=== PATIENT | male | born 1955 | race Caucasian/White ===

== ENCOUNTER 2023-12-04 08:04 | Outpatient (OUT) | payer MEDICARE, OTHER, SELFPAY ==
--- NOTE | 2023-12-04 | XR_ITS ---
[address] [address] Patient Name: ADONAY MITCHELL MRN: [id number] date: 1955 Sex: M Assigned Patient Location: Current Patient Location: Accession/Order Number: [id number] Exam Date: 12/04/2023 08:15 Report Date: 12/05/2023 04:49 At the request of: SONIA MAYNARD Procedure: XR foot RT min 3V PROCEDURE: XR foot RT min 3V HISTORY: RIGHT FOOT PAIN COMPARISON: XR foot right 11/29/2023 FINDINGS: BONES:Mild degenerative change of the first metatarsophalangeal joint. No fracture, dislocation, bone lesion. No significant loss of plantar arch. SOFT TISSUES:No visible soft tissue swelling. EFFUSION:None visible. OTHER: Negative. XR/XR foot RT min 3V IMPRESSION: 1. No acute bone abnormality. 2. Mild degenerative changes of the first metatarsophalangeal joint favoring osteoarthritis. Electronically authenticated by: RONDA MARINO Date: 12/05/2023 04:49
== END 2023-12-04 08:05 | disposition home or self-care (01) ==
PROVIDERS: Visit Provider Podiatrist Foot & Ankle Surgery
DX: M79.671 Pain in right foot (principal)
CPT/HCPCS: 73630

== ENCOUNTER 2023-12-06 06:39 | Outpatient (OUT) | payer MEDICARE, OTHER, SELFPAY ==
--- OUTSIDE RECORDS SUMMARY | 2023-12-06 06:44 | XMS_ITS | CCD ---
Author Organization [facility] CliniSymi Care Team Providers Care Assistant Professor Of Biochemistry Name Role Phone CLAUDINE DELGADILLO Attending Unavailable LEONA, CLAUDINE Consulting Unavailable LEONA, CLAUDINE Admitting Unavailable [facility], Outreach Attending Provider [phone] NON STAFF Primary Care Provider Unavailkavita e OSMIN, CLAUDINE S Consulting Unavailable REFERRAL, SELF Attending Unavailable OSMIN, CLAUDINE S Consulting Unavailable OSMIN, CLAUDINE S Admitting Unavailable OSMIN, CLAUDINE S Attending Unavailable Jonathan, Bandar Attending Unavailable Martinez, Terrell Mead Admitting Unavailable Martinez, Terrell Mead Attending Unavailable Martinez, Terrell Mead Referring Unavailable Martinez, Terrell Mead Admitting Unavailable Martinez, Terrell Mead Attending Unavailable Martinez, Terrell Mead Referring Unavailable Martinez, Terrell T Referring Unavailable Martinez, Terrell T Admitting Unavailable Martinez, Terrell Mead Attending Unavailable NILO Martínez-C Yoli Sanchez Attending Provider [phone] Yoli Martínez Attending Unavailable Tanya, Yoli Sanchez Admitting Unavailable NINI, MARIO Witt Primary Care Unavailable NINI, MARIO Witt Referring Unavailable Allergies Allergy Classification Reported Allergen(s) Allergy Type Date of Onset Reaction(s) Facility (1 source) Codeine; Translations: [codeine] Drug Allergy [facility] [place] [facility] Repository Problems Active Problems Problem Classification Problem Date Documented Da te Episodic/Chronic Headache; including migraine (1 source) Headache; including migraine; Translations: [HEADACHE UNSPECIFIED] Onset: 04-17-2021 Other connective tissue disease (1 source) Pain in right foot; Translations: [Pain in right foot] Onset: 11-29-2023 Episodic Other upper respiratory infections (1 source) Acute pharyngitis, unspecified; Translations: [ACUTE PHARYNGITIS UNSPECIFIED] Onset: 04-17-2021 Episodic Unclassified (3 sources) CONTACT W/AND (SUSP) EXPOS COVID-19; Translations: [CONTACT W/AND (SUSP) EXPOS COVID-19] Onset: 04-17-2021 Unclassified (1 source) COUGH, UNSPECIFIED; Translations: [COUGH, UNSPECIFIED] Onset: 04-17-2021 Unclassified (1 source) Encounter for surgical aftercare following surgery on the skin and subcutaneous tissue; Translations: [Encounter for surgical aftercare following surgery on the skin and subcutaneous tissue] Onset: 03-23-2023 Past or Other Problems Problem Classification Problem Date Documented Da te Episodic/Chronic Unclassified (1 source) CONTACT W/AND (SUSP) EXPOS COVID-19; Translations: [CONTACT W/AND (SUSP) EXPOS COVID-19] Onset: 04-12-2021 Results Test Name Value Interpretation Reference Range Facility XR FOOT RIGHT (MIN 3 VIEWS)o n 11-29-2023 XR FOOT RIGHT (MIN 3 VIEWS) EXAMINATION: THREE XRAY VIEWS OF THE RIGHT FOOT 11/29/2023 10:06 am COMPARISON: None. HISTORY: ORDERING SYSTEM PROVIDED HISTORY: Right foot pain TECHNOLOGIST PROVIDED HISTORY: Reason for exam:->pain What reading provider will be dictating this exam?->CRC FINDINGS: Mild hallux valgus deformity with slight articular narrowing. There is moderate narrowing in the proximal interphalangeal articulations of the 2nd and 3rd digits. There is slight flattening of the arch. Tarsometatarsal alignment is normal IMPRESSION: 1. Mild hallux valgus deformity with slight articular narrowing. 2. Moderate narrowing in the proximal interphalangeal articulations of the 2nd and 3rd digits. Interpreted by: Odessa Pires MD Signed by: Odessa Pires MD 11/29/23 Final result Normal [facility] Superficial Wound Cultureon 03-23-2023 Superficial Wound Culture Right ulnar dorsal hand ORGANISM: Staph. pseudointermedius (O:STAPSE) Quantity of Growth Moderate Growth Aerobic COLT Charge (PCMIC38) ---- SUSCEPTIBILITY --- ORGANISM: O:STAPSE ANTIBIOTIC INTERPRETATION COLT Azithromycin S <2 Ciprofloxacin S <1 Clindamycin S 0.5 Daptomycin S <0.5 Levofloxacin S <1 Linezolid S 2 Oxacillin S <0.25 Penicillin S <0.03 Tetracycline S <4 Trimethoprim/Sulfamet hoxazole S <0.5 Vancomycin S 1 S = SUSCEPTIBLE I = INTERMEDIATE R = RESISTANT BLANK = DATA NOT AVAILABLE, OR DRUG NOT ADVISABLE OR TESTED R* = RESISTANCE DUE TO EXTENDED SPECTRUM BETA-LACTAMASES ESBL = EXTENDED SPECTRUM BETA-LACTAMASE TFG = THYMIDINE-DEPENDENT STRAIN KAYLEN = BETA-LACTAMASE POSITIVE IB = INDUCIBLE BETA-LACTAMASE. APPEARS IN PLACE OF 'S' WITH SPECIES KNOWN TO POSSESS INDUCIBLE BETA-LACTAMASES. POTENTIALLY THEY MAY BECOME RESISTANT TO ALL B-LACTAM DRUGS. PERFORMED BY: [place] [address] PATHOLOGIST STEM FRAZER NOELLE PLASCENCIA M.D. Normal [facility] Comment on above: Performed By: #### C USUP #### [address] ED Note-Physicianon 01-02-20 ED Note-Physician Basic Information Time Seen: Michel Jimenez PA-C 12/09/2022 10:25 Chief Complaint pt reports right pointer and middle finger injury yesterday. had a piece of wood dropped on it. pain and swelling in fingers. History of Present Illness 67-year-old male reports emergency department with a chief complaint of right pointer and middle finger pain. Reports that he had a piece of wood dropped on it. Reports he has a lot of swelling. Reports that he is right-handed. Denies any blood thinner use. States he thinks he broke his finger. Denies any allergies except to codeine. Denies any cuts or lacerations. Review of Systems A 10 point review of systems is negative except as noted above. Medical and Surgical History: Reviewed and noted Social history: Lives at home Family History: Reviewed. Tobacco: Denies Physical Exam Vitals & Measurements T: 36.9 ?C(Oral) HR: 64(Peripheral) RR: 18 BP: 151/78 SpO2: 100% HT: 182 cm WT: 77 kg BMI: 23.25 General: The patient appears well and in no apparent distress. Patient is resting comfortably in chair. Afebrile Skin: Warm, dry, no pallor noted. Mild erythema located over the second digit MCP joint . No abrasions or lacerations noted. Head: Normocephalic, atraumatic Neck: No JVD Eye: PERRLA, EOMI ENT: Moist mucus membranes Cardiovascular: Regular rate normal peripheral perfusion. Radial pulse +2 bilaterally. Cap refill is brisk. Respiratory: No respiratory distress no accessory muscle use no obvious audible wheezing Chest Wall: no deformity Musculoskeletal: Limited range of motion of the right index finger due to pain. Tenderness proximal to the PIP joint all the way to the MCP joint of the second digit. Mild tenderness of the third digit of the right hand as well. There is no flexion or extension, as the patient is holding the finger in a flexed like position. GI: No obvious distention Neurological: A&O moves all extremities equal strength and symmetry Psychiatric: Cooperative and appropriate Medical Decision Making Medical DECISION MAKING Number and Complexity of Problems Differential Diagnosis: [] [facility] Data External documents reviewed: [] My EKG interpretation: [] My CT interpretation: [] My X-ray interpretation: reviewed My Ultrasound interpretation: [] Decision rules/scores evaluated: [] Discussed with: [] Treatment and Disposition ED Course: 67-year-old male reports to the emergency department with a chief complaint of a piece of wood onto his right hand. Reports he having pain of his right hand. States cannot really bend this. On physical exam, he has loss of range of motion of the right index finger, which could be a tendon defect. There is no laceration noted. There is some swelling noted, otherwise benign exam. Hand is neurovascularly intact. Due to his concerns, we did do an x-ray. X-ray showed no acute displaced fracture or complication. I did discuss this with the patient. Due to the possible tendon defect, I did place the patient in a finger splint. This is fully extended, and he will follow-up with orthopedics for further evaluation. Patient was grateful. Discussed return precautions. Follow-up with your primary care provider in 3 to 5 days. If symptoms worsen, do not improve, or new symptoms arise please report back to emergency department for further evaluation. The patient was understanding and agreeable to plan moving forward. Shared decision making: [] Code status: [] Assessment/Plan Injury of right index finger (S69.91XA: Unspecified injury of right wrist, hand and finger(s), initial encounter) Injury of tendon of intrinsic muscle of finger (S66.509A: Unspecified injury of intrinsic muscle, fascia and tendon of unspecified finger at wrist and hand level, initial encounter) Orders: Finger Splint Application XR Finger(s) Min 2 Views Right Disposition Plan Patient Discharge Condition Stable Discharge Disposition to home Discharge Prescription List Prescriptions No active prescription medications Follow-up With When Contact Information Sammy Jones In 3 days 12/12/2022 EDT [address] [place] [address]- Business (1) Additional Instructions: Follow-up with Dr. jones for further evaluation of your right index finger pain. CLAUDINE FUENTESMER In 3 days [address] [facility] [place] [phone] Business (1) Additional Instructions: Patient Education Crush Injury of the Hand, Ylbs-cn-Zoxw Contusion, Alyv-vq-Nnlg Attestation Patient seen and evaluated by the physician medical office assistant. Attending physician was present in the emergency department and supervised care. This visit was performed by both the physician and an APC. I performed all aspects of the MDM as documented. This report was transcribed using voice recognition software. Every effort was made to ensure accuracy, however, inadvertently computerized pile fabric knitter mistakes may be present. Appropriate healthcare PPE w (more content not included)... Normal [facility] Comment on above: Result Comment: Elec tronically Signed By: Michel Jimenez PA-C\.br\Date and Time Signed: 12/09/22 15:01 EDT\.br\Electronically Co-Signed By: Bandar Castillo MD\.br\Date and Time Co-Signed: 01/01/23 02:17 EDT Consent for Treatmenton Consent for Treatment [id number] .00CD:127 Normal [facility] [place] [facility] Discharge Instructionson Discharge Instructions [id number] .00CD:127 [facility] ED Clinical Summaryon 2022 ED Clinical Summary [facility] [address] [place], [place] [address] ED Clinical Summary Person Information Name: ADONAY MITCHELL [facility] Age: 67 Years : 1955 Sex: Male Language: Mexican PCP: CLAUDINE SOLORIO CNP Marital Status: Phone: [phone] Visit Id: Visit Reason: Finger pain-swelling; Finger injury - Minor; RIGHT HAND PAIN & SWELLING Speciality: Acuity: 4 Enc Type: Emergency Med Service: Emergency Arrival: 12/09/2022 10:21:17 Discharge: 12/09/2022 11:57:46 LOS: 000 01:36 Checkin: 12/09/2022 10:21:17 Checkout: 12/09/2022 11:57:46 Dispo Type: Home (Routine DC) EVENTS: Event Name Event Status Request Date/Time Start Date/Time Complete Date/Time Arrive Complete 12/09/2022 10:21:17 12/09/2022 10:21:17 12/09/2022 10:21:17 Document Home Meds Request 12/09/2022 10:21:17 Triage Complete 12/09/2022 10:21:17 12/09/2022 10:26:13 12/09/2022 10:26:13 Bed Assign Complete 12/09/2022 10:22:43 12/09/2022 10:22:43 12/09/2022 10:22:43 Dr Exam Complete 12/09/2022 10:22:43 12/09/2022 10:25:36 12/09/2022 10:25:36 RN Exam Complete 12/09/2022 10:22:43 12/09/2022 11:13:37 12/09/2022 11:13:37 Registration Complete 12/09/2022 10:25:36 12/09/2022 10:30:04 12/09/2022 10:30:04 Reg Complete Request 12/09/2022 10:30:04 X-Ray Complete 12/09/2022 10:40:20 12/09/2022 10:54:57 12/09/2022 11:11:30 Wet Read Request 12/09/2022 11:11:30 Patient Care Request 12/09/2022 11:31:39 Discharge Complete 12/09/2022 11:46:46 12/09/2022 11:57:51 12/09/2022 11:57:51 Transfer Complete 12/09/2022 11:57:51 12/09/2022 11:57:51 12/09/2022 11:57:51 ADDRESS: [place] [phone] PHYS DOC NOTES: MEDICAL INFORMATION: Prescriptions Given: Medications to Continue with No Changes Other Medications acetaminophen-hydroco done ([place] 325 mg-5 mg oral tablet) 1-2 tab(s) Oral q4hr PRN Pain. Duration 7 days.; as needed for pain. Refills: 0. PATIENT EDUCATION INFORMATION: Instructions: Crush Injury of the Hand, Porl-ju-Mcoe; Contusion, Fcxn-qf-Ndqn Follow up: With: Address: When: Sammy Jones [address] [place] [phone] Business (1) In 3 days 12/12/2022 Comments: Follow-up with Dr. jones for further evaluation of your right index finger pain. With: Address: When: CLAUDINE SOLORIO [address] [facility] [place] [phone] Business (1) In 3 days DIAGNOSIS: Injury of right index finger; Injury of tendon of intrinsic muscle of finger Normal [facility] [place] [facility] ED Patient Education Noteon 12-09-2022 ED Patient Education Note Orthopedics Crush Injury of the Hand A crush injury of the hand happens when a great amount of force is suddenly applied to your hand. This injury can damage your skin and many parts (structures) in the hand and wrist. Treatment will depend on which parts are damaged and how bad your injury is. What are the causes? This type of injury might happen: ? During a car accident. ? If a heavy load falls onto the hand. ? If the hand is pulled into a machine during industrial or agricultural work. What are the signs or symptoms? Symptoms will vary depending on which parts of your hand have been injured. Symptoms may include: ? Pain in the hand, wrist, or arm. In some cases, the pain can be very bad. ? Bleeding at the site of injury. ? Tingling, numbness, or loss of feeling (sensation) in part or all of your hand. ? Loss of movement in part or all of your hand. How is this treated? Treatment for this condition depends on how bad your crush injury is. Treatment may include: ? A thorough cleaning if you have an open wound. This may or may not require surgery. ? Having a splint put on your fingers, hand, or forearm. ? Medicine to relieve pain. ? Antibiotic medicine to prevent infection. ? Stitches (sutures) to close open wounds. ? One or more surgeries to treat injuries to skin, bones, joints, tendons, ligaments, muscles, nerves, or blood vessels. Follow these instructions at home: If you have a splint: ? Wear the splint as told by your doctor. Remove it only as told by your doctor. ? Do not put pressure on any part of the splint until it is fully hardened. This may take many hours. ? Loosen the splint if your fingers tingle, get numb, or turn cold and blue. ? Keep the splint clean. ? If the splint is not waterproof: ? Do not let it get wet. ? Cover it with a watertight covering when you take a bath or shower. Wound care ? If you have any skin wounds that were covered with bandages (dressings), follow instructions from your doctor about how to take care of your wounds. Make sure you: ? Wash your hands with soap and water before and after you change your bandage. If you cannot use soap and water, use hand white kid buffer. ? Change your bandage as told by your doctor. ? Leave stitches, skin glue, or skin tape (adhesive) strips in place. They may need to stay in place for 2 weeks or longer. If tape strips get loose and curl up, you may trim the loose edges. Do not remove tape strips completely unless your doctor says it is okay. ? If you have skin wounds, check them every day for signs of infection. Check for: ? More redness, swelling, or pain. ? More fluid or blood. ? Warmth. ? Pus or a bad smell. Managing pain, stiffness, and swelling ? If told, put ice on the injured area. ? Put ice in a plastic bag. ? Place a towel between your skin and the bag. ? Leave the ice on for 20 minutes, 2?3 times a day. ? Raise (elevate) the injured area above the level of your heart while you are sitting or lying down. Driving ? Ask your doctor: ? If the medicine prescribed to you requires you to avoid driving or using heavy machinery. ? When it is safe to drive if you have a splint on your hand or arm. Activity ? Return to your normal activities as told by your doctor. Ask your doctor what activities are safe for you. ? Work with a physical therapist (PT) or occupational therapist (OT) as told by your doctor. General instructions ? Take zefo-pth-thbzimm and prescription medicines only as told by your doctor. ? If you were prescribed an antibiotic, take it as told by your doctor. Do not stop taking the antibiotic even if you start to feel better. ? Do not use any products that contain nicotine or tobacco. These products include cigarettes, e-cigarettes, and chewing tobacco. If you need help quitting, ask your doctor. ? Keep all follow-up visits as told by your doctor. This is important. These include PT and OT visits. Contact a doctor if: ? A wound with stitches opens up. ? You have more redness, swelling, or pain in your hand. ? You have more fluid or blood coming from your hand. ? Your hand feels warm to the touch. ? You have pus or a bad smell coming from your hand. ? You have a fever. Get help right away if: ? You suddenly have very bad pain in your hand. ? You had feeling in your hand before but you suddenly lose feeling. ? Your wrist or hand becomes bent (contracted)without you trying to bend it. ? Your symptoms had gotten better and they suddenly get worse. ? Your hand or fingers are turning pink or blue. Summary ? A crush injury of the hand can damage your skin and many parts (structures) in the hand and wrist. ? Symptoms will vary depending on which parts of your hand have been injured. ? Treatment for this condition depends on how bad your crush injury is. This information is not intended to replace advice given t (more content not included)... Normal [facility] [place] [facility] ED Patient Summaryon 023 ED Patient Summary [place] [id number] Patient Discharge Instructions Person Information Name: ADONAY MITCHELL Age: 67 Years Arrival Date: 12/09/2022 10:21:17 Discharge Diagnosis: Injury of right index finger; Injury of tendon of intrinsic muscle of finger Primary Care Physician: CLAUDINE SOLORIO CNP Provider Information Primary Provider: Advanced Multiple Knife Edge Trimmer Operator:None The exam and treatment you received in the Emergency Department were for an urgent problem and are not intended as complete care. It is important that you follow up with a doctor, nurse practitioner, or physician?s medical office assistant for ongoing care. If your symptoms become worse or you do not improve as expected and you are unable to reach your usual health care provider, you should return to the Emergency Department. We are available 24 hours a day. ADONAY MITCHELL has been given the following list of patient education materials, prescriptions and follow-up instructions: Follow-up Instructions: With: Address: When: Sammy Jones [address] [place], [place] [phone] Business (1) In 3 days 12/12/2022 Comments: Follow-up with Dr. jones for further evaluation of your right index finger pain. With: Address: When: CLAUDINE SOLORIO [address] [place] [phone] Business (1) In 3 days In the event that this physician does not participate in your insurance network, please consult with your insurance company to find a nearby participating provider. Patient Education Materials: Crush Injury of the Hand, Kvmw-jt-Cqgv; Contusion, Khck-yi-Bgte A MESSAGE TO ALL PATIENTS REGARDING OPIOIDS PRESCRIPTION OPIOIDS: WHAT YOU NEED TO KNOW Prescription opioids can be used to help relieve mqxnkgsj-hh-ijgtbc pain and are often prescribed following a surgery or injury, or for certain health conditions. These medications can be an important part of the treatment but also come with serious risks. It is important to work with your healthcare provider to make sure you are getting the safest, most effective care. WHAT ARE THE RISKS AND SIDE EFFECTS OF OPIOID USE? Prescription opioids carry serious risks of addiction and overdose, especially with prolonged use. An opioid overdose, often marked by slowed breathing, can cause sudden . The use of prescription opioids can have a number of side effects as well, even when taken as directed: ? Tolerance?meaning you might need to take more of the medication for the same pain relief ? Physical dependence?meaning you have symptoms of withdrawal when a medication is stopped ? Increased sensitivity to pain ? Constipation ? Nausea, vomiting, and dry mouth ? Sleepiness and dizziness ? Confusion ? Depression ? Low levels of testosterone that can result in lower sex drive, energy, and strength ? Itching and sweating RISKS ARE GREATER WITH: ? History of drug misuse, substance use disorder, or overdose ? Mental health conditions (such as depression or anxiety) ? Sleep apnea ? Older age (65 years and older) ? Avoid alcohol while taking prescription opioids. Also, unless specifically advised by your health care provider, medications to avoid include: ? Benzodiazepines (such as Xanax or Valium) ? Muscle relaxants (such as Soma or Flexeril) ? Hypnotics (such as Ambien or Lunesta) ? Other prescription opioids KNOW YOUR OPTIONS Talk to your health care provider about ways to manage your pain that don?t involve prescription opioids. Some of these options may actually work better and have fewer risks and side effects. Options may include: ? Pain relievers such as acetaminophen, ibuprofen, and naproxen ? Some medication that are also used for depression or seizures ? Physical therapy and exercise ? Cognitive behavioral therapy, a psychological, goal-directed approach, in which patients learn how to modify physical, behavioral, and emotional triggers of pain and stress. IF YOU ARE PRESCRIBED OPIOIDS FOR PAIN: ? Never take opioids in greater amounts or more often than prescribed. ? Follow up with your primary health care provider. o Work together to create a plan on how to manage your pain. o Talk about ways to help manage your pain that don?t involve prescription opioids. o Talk about any and all concerns and side effects. ? Help prevent misuse and abuse o Never sell or share prescription opioids. o Never use another person?s prescription opioids. ? Store prescription opioids in a secure place and out of reach of others (this may include visitors, children, friends, and family). ? Safely dispose of unused prescription opioids: Find your community drug take-back program or your pharmacy mail-back program, or flush them down the toilet, following guidance from the Food and Drug Administration (www.fda.gov/Drugs/Re sourcesForYou). ? Visit www.eCareer (more content not included)... Normal [facility] [place] [facility] XR Finger(s) Min 2 Views [facility] [place] 12-09-2022 XR Finger(s) Min 2 Views Right Exam Date/Time: 12/09/2022 11:11 EDT Reason for Exam: Pain, Traumatic Report IMPRESSION: NO DISPLACED FRACTURE OR SIGNIFICANT POSTTRAUMATIC COMPLICATION IDENTIFIED. EXAM: XR Finger(s) Min 2 Views Right DATE: 12/09/2022 CLINICAL HISTORY: Pain, Traumatic. COMPARISON: None available. TECHNIQUE: PA, lateral, and oblique radiographs of the right second and third digits were obtained. FINDINGS: There is no fracture, dislocation, worrisome bone destruction, radiodense foreign bodies, or other posttraumatic complication identified. Mild osteoarthritic changes are present. Ordering Provider: Michel Jimenez FINAL REPORT Dictated: 12/09/2022 11:21 am Bhaskar Lemos MD Signed (Electronic Signature): 12/09/2022 11:21 am Signed by: Bhaskar Lemos MD Transcribed by: RAMÓN Technologist: JIMBO Technical Comments Radiation Dose: Ka,r in mGy = na DAP = na [facility] Postoperative Documentson Postoperative Documents [id number] .00CD:127 [facility] [place] [facility] IntraOperative Documentson 0 07-14-2022 IntraOperative Documents [id number]# 1.00CD:127 [facility] Coding Summary.on 07-13-2022 Coding Summary. CD:[id number] W w+PGhlYWQ+MX7BSUNjM53 zuOVkyN6qL0XVYNuPQyup HTJKJReWCgHtqzDzIH1mv XNjZXJu IC8+BL4jITFmMicdkSIns 7F8eNW0S38zfx3iGXfnpH N7VKIhArVpvabrr6svcKg 6IDcuNmluOyBt HIQioZ72PUA1nT52Gx22e UWtxITrd2ulxTo2GyMcVD InQNQ2mHvjLKabf6AmZPQ hC54hnRIvf3C3 RTTxwHirkUWbUzMztPF7a S7cTXwjuuxqe7usbpklMw l2vl63jARoq4A0oCY8U6G tbfR9QDHbyECu RarxoHTOwA7fflinz4hka senQdSzTDLeISd9YFs3NX OoiJudHiYkKS32YGT3GCR suxIgY0RgEZCh cOwdDuZ2e2E8Tc0KG5CCU psiQ7ENYNIFOQrdgBJ+PC 69hm75A0IhGzgrYme6ZBE eCXV1qBW4hV1y BWEeYHzew1B7yHU4R0Azu nPkqr8do9uzQLGeYKtjT4 1gaCHox9C9PIBymOU4MIM beGtwCxLvpR05 Oyc+XRHyeQyev1AaWtbrd 4zyb2zfmPj5IdwuEHKuri DptGclJGT9f8XaHo7nXIF bxQC9gXA2zH4b YeLyMdQ1JTkcI686QrQqp MSeOykyA72oF8MnzGK+PH MrKqg3ATEgyVayDW8dT9B hZGRpbmctbGVm cKwcUN4rXCBttcliDIXwg J0kHZAaH9p3PvWaDaM3UB woH4UsJXInoiadIi24xB9 hLkRqDaT8DKim Q2PklsE2DDKqxZTbPJfkM ZK1A97yi4S7PLSsBHOtVJ A8zYH0cR0hkZoxauncjXZ mdDsgdmVydGlj QLgqNRxyZ504JLMugPwzL kNvZGluZyBEYXRlOiAgMD QvMDYvMjAyMzwvdGQ+PHR jMRZ4jYidUXQd jBLoBNwzJq0ieGbztDmxD Z3bPYBehgklMEDjeR5xAL CxaRFrrWjkFW0yDKNpidi so936OqTmTTD6 OTJclKYuQ8QarO1lRiEfV JLoKSYrB6HkeJMjDFsfD9 90GRnaMnD9GURtoxIjZ2R sLWFsaWduOiB0 m1L9Ty2Od3CpctcpC8Dzf BCvUmFyLuneBYc1T1CnXl wvdHI+SF19QHIcEY14WQf 9PNC0lWdeACuv NLBhT1WfmP6xHqCoVUUsA GRkOyc+PHRhYmxlIHdpZH RoPScxMDAlJyBzdHlsZT0 zDn9nNCEpOXRl mGhhbAExRpKlg5lrXXCvA KasFO8aiJqaX8DxbYH9JM Gzn2h6Hz56Y20kD8PmvVM +UYVkcPF1xRR7 sT1oDxZtHxK6HAhfF392J mCxyDAdWsmne9ber8vyfB j0KeU1TUQazzClmAnlODT 5f5EnMx36K35h IHdpZHRoPSIxNSUiIHZhb Eazer7yhZ7gRa4+PGNvbC E3tBQ3yV6wTdQiJcY9ZUn hN077DwZdbAKe Uskyo3pfa3mfvEc5SgTcQ DJmopDuoFdhYYC2o1TkJn 35Q0TkcOlro3QeVmf0in6 3zUDnn9A5eQH7 O8OvGAZejgmtkETjqMflE X6vZGJjanfhEFCsaA6wMY BeN3c9CdZnKwW1WFpkW6R wuyA0FUVxfZCb MNGmcFMWeG2rheech2wov qtaGxDrATXcELp2QRo2YF EzaVilKqDoZNI9ChG0BSA 9bAVexE6pkJvz eqbpqN4jShn+RVC1uXOzx DLAIL2rGktxcRU+PHRkIH D3dAfoSUmzFUDkdI1wLVE fB9t6EsHtToQ9 DQxmR3OgwrR7UBYsqFUlP LQebCPUnN6uwdyln1bfaq ctHkMsWVFqJEx6UQc8TLN saWduOiBsZWZ0 PmG9ACB2wFMpzG3urPfvh tmaaX0qJyf+QmlydGggRG J4EMk6U8UgMqn8CGOzeLx fTO8lmELoMTyo Jt7vtAnjvHdyEN1bOECrn wchw321TcUrn9tkCWMqnC LpIIvyBRW2Y99au9N6UPD jSGYgHHV7gPW8 tB6uhZeryjhtgBOouOljz cHmmEupYXxgHUyyD657ZE VejPfmQtTwZPg2X2IsCng 7XRGbuVhxDS2o jDUpFTzaTi6vqTznkLbyG O2uYLGzrpnwr416HvFsi4 qoBOBgqMTbUPkpTQG9Y71 mt5Y9SQBsBGDw FTJ2iHF7gR1lvGjrwthkb GVmdDsgdmVydGljYWwtYW ubG909SNEwkClxDtUunGb 9P1TdEzd2SFIx eXfdIJ5nqWBpXJutRc4bg NfesFyvNF7uCVFffjwqo2 78XsAev0jaZHZmbNFpAWr wDQU3K19ec7Z1 DTOiCSOxPBZ6sYP2bN4fl GlnbjogbGVmdDsgdmVydG gwLSgrTSicW976RDTpaKj nPlBhdGllbnQg DEnlXFp6L6DfSznvfUT+P D84HEWgQF42oPDegIRly3 mffMo8RbZcGMSoPLG5bFa wQNtcf0XoFNCc N65bhMLgm8T9FOCmlNckx YFjXiMoqTT9vL5vAOvzmz kew5eetsmrOuied9jthn8 9qY57B74jDKbo ZHRoPSIzMCUiIHZhbGlnb r7xcU5vAx5+ESWrkFL2cU R0zK1bJETkVmP8NXppL26 9InRvcCIvPjxj p0gfk8rufIe0LtZ5IQEkx sNrmXkmICD3m6XvRv25H3 9sIHdpZHRoPSIyMCUiIHZ zwDbqvk9kxT4q Ii8+MHDvrWO5qMA6eF7xF uFwCmS4TAzmJ547ZgFmoO CzHvkfY58gL5KnoKL+PHR oXzn4SNZmoGqn UG4sdVBvNZvzGg5mAVP5B eFnAcDtHWhfU7AdLTQsnc jbgorpkNV1MOXlHOBicI2 0Yq9wbPpcINTt gMAPxV8sjggew9gldwazL fKvJQKzWSz0CYx7UURmyH zrNsNsAIA2FlA8SMQ3aDE miB5lzGknnoxs hH1sT3TzAHCuiayhNb90l K2bWdXnRsJ4NWllXoe+Rk sQB9daAKlSDLGZKhEWVB9 8LM30aIYvj2R7 cIE0X4JgDHRrftrdslhwr ZD2MBYbJWFbuM35zMLsVB hvIn9kf6Q3o997AEOtZVJ vlL73Ye4vwPfd WCMqbLDDlH4mlagav9duw tdlJsXfRHXcYFt1ICy3LT JwlSwzZfXlJWE7OiR3DVJ 9iYAcxS7izCtz refdiB0wEnt+MTAvMDIvM Gn8KtizyQD+BPUyNJA1tN veSIpwVJWgmQ0vIUArY8s 5NrYoTpE9LFhf G5FpRDEvruxuPt18nE5mG jZwQiL9YGzwN0ZqkhD4KO QwcSTmAYmzNAS8K11uj2H 0RPTvXUPqIYU0 oOZ2eK1pgOcrgiauvLVws DsgdmVydGljYWwtYWxpZ2 13OGVtePjySiV0VDolZEK nFX44MB41cTEk k7W1oHO2V9MuWYLufkdzq rduqMA8QIAuFUZqdJ77lW VwVAlvHt7fh5U6d840FJQ vFKXofK29Fm3x cPbnYECrwDSDmM6ozycwe 6dqfotzGoTcQTUlIDp3NI e8PLTpuVijYoYsGWR6WfF 7CWS9qBPyuG4t eGblzrcfnY3mDtp+TWFsZ TwvdGQ+FMOhADM8fAilHA fbPKZmbL7dIZZyG8u5VrY dTmI3HYveZ6Sn HAMgkfviTt69gP1qKvCxG pU7VTxzV1AlfbM7HDFinQ DsTWiaCYN8B86ye0E7KSJ rQPScBBN8cFE6 aT7ylJmquljpkQNeuNuww rEdnJitMNubJZwwE476YR RvcDsnPkFtYnVsYXRvcnk wD0BrNSOGSUuk L6TrW0PzpZuudES+PC90c y43M5LpVrryJbp7YUXnGM E1sNJ1eA8eRMJuECdsc5J 5jBU4D2ThhaGk rk7cy6yrEJFwJMcsB60ja BDfh4X8LCSkvVB3DMTsnX rhTaUdkN07Apk+PGNvbGd ak6WnTvsmg4qe d7boxVd5UdXaCLVmtkBvd VrqIWB6x6AyYk35T51jOG dpZHRoPSIzMCUiIHZhbGl vjd5tlQ7rYc2+ SZJzfYS4uGI8pY9mUoIsQ tT2GJwoW021XxLizMJzRo lsq0sch8ervIf0MqRlAWC gdmFsaWduPSJ0 w7BtVd46W7DqzEqaa7GxM cy2ix15bZTwk4U1lZX0X1 BhZGRpbmctbGVmdDogMC4 yMDBpbjtwYWRk xD9pZPTcV5h7AdCfTeK7K LolB8UocbV0KGKeoLEeFZ UjyTAXwU3mgbyak7vfenk gIzAwMDAwMDt0 XVn4XQThaBtaWdTsMAC0P kK4LIE7bCYiaW0npMbpzs wssK7iZaw+APj3x4lrmDU dIF7iyBZ5SP34 BU53fZQoj0C4rCB8H8KsB UVckjqfmrdasYN9TOMwAA QliY96Ss5vmIgkGx4fSCK tOAO1KCPrgCYb O2FlpC8xBrHwQGHyANPcP 1LmoGIxEMlvD890QXzvEf H5TPYtrdEuA4XiZDVclTf jJyN2r0M5Ic7B MA08NV48RR97lTCok6V3l UD1I4SrUCBibizwuaeafK G2SPWdKIFokO40Di0qyFl aId2bEUFdYGL3 IJUcvMOhB5UvfK0pHiAeB XCrOSHwN3RfeQWtJMfvN3 34ODuqDpI5DZQlruYfB6F sLWFsaWduOiB0 e6P0Za2OHk44IJ91DI96b AMmn9X3tRH6Y7UyWNWamc xzhzprfCA9IVWeEZQhqW2 7Iv1bqPciBe4s ZNKdAWW1DJAknRMhW5Dfh C1vSlEwSTYaUIPaT9AisO CpYMamF712XBcbFzJ6RXW pbgPwO7IhNAOf sBwnRdR9n3X3Al5FUEkom wb6M4TwEvalgZX+PC90YW XcZV37qOSpqMMtf0ppqJj 0EpGcIZIbNBL8 eWxlPSdi (more content not included)... Normal [facility] Main OR Intraoperative Recor don 07-13-2022 Main OR Intraoperative Record IntraOp Document Type FT Summary Primary Physician: Terrell Martinez DO Finalized Date/Time: 07/13/22 08:47:29 Pt. Name: ADONAY MITCHELL/Sex: 1955 Male Med Rec #: [id number] Physician: Terrell Martinez DO Financial #: [id number] Pt. Type: A Room/Bed: [facility] Admit/Disch: 07/10/22 10:47:23 - 07/10/22 16:30:00 Institution: Case Times FT Entry 1 Patient Times In Room 07/10/22 13:57:00 Out Room 07/10/22 14:39:00 Procedure Times Start 07/10/22 14:20:00 Stop 07/10/22 14:30:00 Anesthesia Times Start 07/10/22 13:57:00 Stop 07/10/22 14:39:00 Last Modified By: Pierre Pelayo RN 07/10/22 14:42:16 General Comments: 07/13/22 Chart opened to review and send charges [facility]oth CSFA Case Attendance FT Entry 1 Entry 2 Entry 3 Case Attendee Dheeraj Green CRNA, DO, Michael T Cantal RN, Sheminith A Role Performed MOTOR HOTEL MANAGER Surgeon - Primary Surgical Technology Instructor - Primary Time In 07/10/22 13:57:00 07/10/22 13:57:00 07/10/22 13:57:00 Time Out 07/10/22 14:39:00 07/10/22 14:39:00 07/10/22 14:39:00 Procedure WRIST ARTHROSCOPY(Left) WRIST ARTHROSCOPY(Left) WRIST ARTHROSCOPY(Left) Comments Last Modified By: Pierre Pelayo RN, RN, Sheminith A Cantal RN, Sheminith A 07/10/22 14:41:28 07/10/22 14:41:28 07/10/22 14:41:28 Entry 4 Entry 5 Case Attendee Amy Dominique CST, Benjamin Role Performed Scrub - Primary BACON STRINGER/SA Time In 07/10/22 13:57:00 07/10/22 13:57:00 Time Out 07/10/22 14:39:00 07/10/22 14:39:00 Procedure WRIST ARTHROSCOPY(Left) WRIST ARTHROSCOPY(Left) Comments Last Modified By: Pierre Pelayo RN, RN, Sheminith A 07/10/22 14:41:28 07/10/22 14:41:28 Perioperative Protocols FT Pre-Care Text: Implements protective measures prior to operative or invasive procedure, confirms identity before the operative or invasive procedure, verifies operative procedure, surgical site, and laterality Entry 1 Procedure(s) WRIST ARTHROSCOPY(Left) Patient Identity Birthday, ID Band Verified (select at Check, Patient least 2): Participation Consents / H and P Anesthesia Consent, Operative Site Present Verified HandP, Surgery/Procedure Marking Verified Consent, Transfusion Consent Surgical Site Yes Laterality Verified Yes Verified Procedure Verified Yes Correct Patient Yes Position Verified Availability Equipment, Medication Prep Dry Yes Verified (If Applicable) PreOp Antibiotic No Time Out Dheeraj Green CRNA, Given Participants Terrell Martinez DO, Cantal RN, Trip Cabrera Jessica D, Mitul TURNER, Ramez Time Out Complete 07/10/22 14:17:00 Outcomes Met? Yes Last Modified By: Pierre Pelayo RN 07/10/22 14:50:38 Post-Care Text: The patient is free from signs and symptoms of injury caused by extraneous objects Allergy Information FT Pre-Care Text: Verifies allergies Entry 1 Allergies Reviewed? Yes Allergies Reviewed Self/Patient With Outcomes Met? Yes Last Modified By: Pierre Pelayo RN 07/10/22 14:50:44 Post-Care Text: The patient received appropriate medication(s) safely administered during the perioperative period Surgical Procedures FT Entry 1 Procedure Description Procedure WRIST ARTHROSCOPY Modifiers Left Surgeon Description LEFT WRIST ARTHROSCOPY DEBRIDEMENT TFCC TEAR CHONDROPLASTY LUNATE Primary Procedure Yes Primary Surgeon Terrell Martinez DO Start 07/10/22 14:20:00 Stop 07/10/22 14:20:00 Anesthesia Type General Surgical Service Orthopedics Wound Class 1 - Clean Last Modified By: Pierre Pelayo RN 07/10/22 14:41:53 General Case Data FT Pre-Care Text: Classifies surgical wound, implements aseptic technique, initiates traffic control Entry 1 Case Information OR OR 4 FT Case Level Level 3 Wound Class 1 - Clean Specialty Orthopedics ASA Class 2 Preop Diagnosis M67.834 LEFT WRIST TFCC Postop Same As Preop Yes TEAR Postop Diagnosis M67.834 LEFT WRIST TFCC Outcomes Met? Yes TEAR Last Modified By: Pierre Pelayo RN 07/10/22 14:42:00 Post-Care Text: The patient is free from signs and symptoms of infection Skin Assessment (Pre Procedure) FT Pre-Care Text: Implements protective measures to prevent skin/ tissue injury due to thermal or mechanical sources Evaluates for signs and symptoms of physical injury to skin and tissue Entry 1 Skin Integrity Intact, Speers, Warm, and Skin Abnormality No Dry Outcomes Met? Yes Last Modified By: Pierre Pelayo RN 07/10/22 14:51:02 Post-Care Text: The patient is free from signs and symptoms of injury caused by extraneous objects Patient Positioning FT Pre-Care Text: Identifies physical alterations that require additional precautions for procedure-specific positioning, verifies presence of prosthetics or corrective devices, positions the patient, evaluates the patient for signs and symptoms of injury as a result of positioning Entry 1 Procedure WRIST ARTHROSCOPY(Left) B (more content not included)... Normal [facility] Progress Note-Physicianon Progress Note-Physician Patient: ADONAY MITCHELL Age: 67 years Sex: Male : 1955 Associated Diagnoses: None Author: Christiano Christensen Jr, DO Preoperative Information Time patient last ate or drank:=== (npo 8 hours) Anesthesia history: Patient history: No prior anesthesia problems. Re-evaluation prior to induction: Completed, Initial evaluation reviewed. Review of Systems Respiratory: No shortness of breath. Cardiovascular: No chest pain. Hematology/Lymphatics : No bruising tendency, No bleeding tendency. Health Status Allergies: Allergic Reactions (All) Severity Not Documented Codeine- Head ache. Current medications: (Selected) Inpatient Medications Ordered HYDROmorphone 1 mg/mL injectable solution: 1 mg = 1 mL, Injection, IV Push, q2hr PRN Pain 8-10 for 5 day(s), Stop date 07/15/22 13:44:00 EDT, Routine, Start date 07/10/22 13:45:00 EDT, 07/10/22 13:45:00 EDT Lactated Ringers IV Ines 1000 mL 1,000 mL: 1,000 mL, IV, 150 mL/hr, Routine, Start date 07/10/22 10:45:00 EDT, 6.7 hour(s), Total volume (mL): 1,000, 77.1 kg, 1.97, m2 Lactated Ringers IV Ines 1000 mL 1,000 mL: 1,000 mL, IV, 150 mL/hr, Routine, Start date 07/10/22 10:45:00 EDT, 6.7 hour(s), Total volume (mL): 1,000, 77.1 kg, 1.97, m2 Lactated Ringers IV Ines 1000 mL 1,000 mL: 1,000 mL, IV, 80 mL/hr, Routine, Start date 07/10/22 13:45:00 EDT, 12.5 hour(s), Total volume (mL): 1,000, 77.1 kg, 1.97, m2 [place] 5/325 Tab: 1 tab(s), Tab, Oral, q4hr PRN Pain 4-7 for 5 day(s), Stop date 07/15/22 13:44:00 EDT, Routine, Start date 07/10/22 13:45:00 EDT Zofran 4 mg/2 mL Injection: 4 mg = 2 mL, Injection, IV Push, q4hr PRN Nausea/Vomiting, Routine, Start date 07/10/22 13:45:00 EDT, 07/10/22 13:45:00 EDT morphine 2 mg/mL Inj: 2 mg = 1 mL, Injection, IV Push, q4hr PRN Pain 8-10 for 5 day(s), Stop date 07/15/22 13:44:00 EDT, Routine, Start date 07/10/22 13:45:00 EDT, 07/10/22 13:45:00 EDT morphine 2 mg/mL Inj: 4 mg = 2 mL, Injection, IV Push, q4hr PRN Pain 8-10 for 5 day(s), Stop date 07/15/22 13:44:00 EDT, Routine, Start date 07/10/22 13:45:00 EDT, 07/10/22 13:45:00 EDT Prescriptions Prescribed [place] 325 mg-5 mg oral tablet: See Instructions, for pain, 20 tab(s), Refill(s) 0, 1-2 tab(s) Oral q4hr PRN Pain. Duration 7 days., [employer] #[facility], 182, cm, 07/03/22 6:35:00 EDT, Height/Length Dosing, 77.1, kg, 07/03/22 6:35:00 EDT, Weight Dosing Problem list: All Problems Contusion of elbow / SNOMED CT 700362434 / Confirmed rt elbow Cubital tunnel syndrome / SNOMED CT 49816527 / Confirmed rt arm, traumatic Lateral epicondylitis / SNOMED CT 850840801 / Confirmed Migraines / ICD-9-CM 346.90 / Confirmed Wellness examination / SNOMED CT 505756204 / Confirmed Histories Past Medical History: Active Lateral epicondylitis (114419814) Migraines (346.90) Family History: CA - Lung cancer Father () Hypothyroidism Mother Alzheimer's disease Father () Mother Graves disease Mother Brother A Fib Father () Brother Procedure history: colonoscopy in 2014 at 59 Years. foot surgery. Comments: 03/09/2011 19:06 DAIN - Gisselle MUKHERJEE, Janis d/t injury Arthroscopy of knee (687477882). hand surgery. 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 Comments: 08/18/2011 7:54 EDT - Ceci Salmeron RN Social History Social & Psychosocial Habits Alcohol 03/09/2011 Risk Assessment: Denies Alcohol Use Exercise 04/24/2019 Risk Assessment: Occasional exercise Substance Abuse 03/09/2011 Risk Assessment: Denies Substance Abuse Tobacco 03/09/2011 Risk Assessment: Denies Tobacco Use 01/19/2021 Tobacco Use: Never (less than 100 in l Smokeless tobacco use: Never Concerns about tobacco use in household: No . Physical Examination Vital Signs 07/10/2022 11:06 EDT Heart Rate Monitored 62 bpm Systolic Blood Pressure 122 mmHg Diastolic Blood Pressure 76 mmHg Mean Arterial Pressure, Monitered 92 mmHg 07/10/2022 11:05 EDT Heart Rate Monitored 60 bpm SpO2 100 % 07/10/2022 11:05 EDT Respiratory Rate 20 br/min 07/10/2022 11:04 EDT Temperature Oral 36.5 DegC 07/10/2022 11:03 EDT Systolic Blood Pressure 126 mmHg Diastolic Blood Pressure 81 mmHg Mean Arterial Pressure, Monitered 96 mmHg Respiratory: Lungs are clear to auscultation. Cardiovascular: Normal rate, Regular rhythm. Review / Management Results review Interpretation of Outside Results Chest x-ray results Radiology results ECG interpretation Condition Plan [employer] (ASA) physical status classification: Class II. Anesthetic Preoperative Plan Anesthesia: General. . Anesthetic plan, risks, benefits, and alternatives discussed with the patient and/or family. Risks discussed: nausea, vomiting, headache, sore throat, dental injury, serious complications. Patient verbalized understanding. Communication: face to face with (patient 5 minutes, Pt educated on the importance of smoking ce (more content not included)... [facility] Comment on above: Result Comment: Elec tronically Signed By: Christiano Christensen Jr, DO\.br\Date and Time Signed: 07/12/22 10:27 EDT Progress Note-Physician Patient: ADONAY MITCHLEL Age: 67 years Sex: Male : 1955 Associated Diagnoses: None Author: Christiano Christensen Jr, DO Postoperative Information Postoperative disposition: Postoperative disposition: To PACU. Optimetrix number: Optimetrix number [id number]. Anesthetic utilized: General. Health Status Allergies: Allergic Reactions (Selected) Severity Not Documented Codeine- Head ache. Physical Examination Vital Signs 07/10/2022 16:30 EDT Heart Rate Monitored 65 bpm SpO2 99 % 07/10/2022 16:30 EDT Respiratory Rate 16 br/min 07/10/2022 16:29 EDT Systolic Blood Pressure 125 mmHg Diastolic Blood Pressure 73 mmHg Mean Arterial Pressure, Monitered 90 mmHg 07/10/2022 15:16 EDT Heart Rate Monitored 66 bpm SpO2 99 % 07/10/2022 15:14 EDT Systolic Blood Pressure 131 mmHg Diastolic Blood Pressure 76 mmHg Mean Arterial Pressure, Monitered 94 mmHg 07/10/2022 15:05 EDT Temperature Temporal Artery 36.5 DegC Heart Rate Monitored 71 bpm Respiratory Rate Monitored 10 br/min Systolic Blood Pressure 114 mmHg Diastolic Blood Pressure 76 mmHg Mean Arterial Pressure, Cuff 89 mmHg SpO2 100 % Pain Assessment: Controlled. General: Awake, Alert, Appropriate. Respiratory: Adequate air exchange. Cardiovascular: Stable, Normal peripheral perfusion. Neurological: Normal sensory function, Normal motor function. Assessment Anesthetic outcome No anesthetic complications noted. Adequate pain relief. able to void without difficulty, able to ambulate with assist, tolerating PO intake, no N/V. Review / Management Condition: Stable. Plan Transfer/Discharge: Transfer/Discharge Discharge when meets criteria ( To home ). [facility] Comment on above: Result Comment: Elec tronically Signed By: Christiano Christensen Jr, DO\.br\Date and Time Signed: 07/12/22 10:26 EDT Consent for Anesthesiaon Consent for Anesthesia [id number]#1 .00CD:127 [facility] Discharge Instructionson Discharge Instructions [id number]#1 .00CD:127 [facility] IntraOperative Documentson 0 07-11-2022 IntraOperative Documents [id number]#1 .00CD:127 [facility] IntraOperative Documents [id number]#1 .00CD:127 [facility] Preoperative Documentson Preoperative Documents [id number]#1 .00CD:127 [facility] Consent for Treatmenton Consent for Treatment [id number]#1 .00CD:127 [facility] H&P Updateon 07-10-2022 H&P Update [id number]#1 .00CD:127 [facility] Inpatient Patient Summaryon 07-10-2022 Inpatient Patient Summary [place] [id number] [facility] Clinical Discharge Instructions PERSON INFORMATION Name: ADONAY MITCHELL PHYSICIANS Admitting Physician: Terrell Martinez DO Attending Physician: Terrell Martinez DO PCP: CLAUDINE SOLORIO CNP Discharge Diagnosis: Tear of triangular fibrocartilage complex (TFCC) of left wrist Comment: PATIENT EDUCATION INFORMATION Instructions: Post Op Patient Instructions - FT (CUSTOM); Triangular Fibrocartilage Tear Medication Leaflets: Follow up: With: Address: When: Terrell Martinez [address] [place] [address] Business (1) Comments: Keep scheduled appointment MEDICATION LIST Medications to Continue with No Changes [employer] [address], [address] [place], [place] [id number], [phone] acetaminophen-hydroco done ([place]ont 325 mg-5 mg oral tablet) 1-2 tab(s) Oral q4hr PRN Pain. Duration 7 days.; as needed for pain. Refills: 0. Comment: [facility] Main OR PACU I Recordon 04-0 Main OR PACU I Record PACU Phase I Docum ent Type FT Summary Primary Physician: Terrell Martinez DO Finalized Date/Time: 07/10/22 15:17:23 Pt. Name: ADONAY MITCHELL/Sex: 1955 Male Med Rec #: [id number] Physician: Terrell Martinez DO Financial #: [id number] Pt. Type: A Room/Bed: [facility]/ Admit/Disch: 07/10/22 10:47:23 - Institution: Case Times PACU I FT Pre-Care Text: Identifies barriers to communication and implements measures to provide psychological support Develops individualized plan of care, and ensures continuity of care Maintains patient's dignity and privacy, and maintains patient confidentiality Identifies and reports philosophical, cultural, and spiritual beliefs and values Identifies individual values and wishes concerning care Implements aseptic technique, and administers prescribed antibiotic therapy and immunizing agents as ordered Evaluates postoperative tissue perfusion Implements thermoregulation measures, and monitors body temperature Evaluates postoperative respiratory status Evaluates postoperative cardiac status Evaluates postoperative neurological status Assesses pain control, collaborated in initiating patient-controlled analgesia and implements alternative methods of pain control Verifies allergies, administers prescribed medications and solutions, evaluates response to medications Entry 1 In PACU I 07/10/22 14:40:00 Discharge from PACU 07/10/22 15:10:00 I Outcomes Met? Yes Last Modified By: Erma Ortiz RN 07/10/22 15:17:05 Post-Care Text: The patient demonstrates knowledge of the expected response to the operative or invasive procedure The patient's care is consistent with the individualized perioperative plan of care The patient's right to privacy is maintained The patient's value system, lifestyle, ethnicity, and culture are considered, respected, and incorporated into the perioperative plan of care The patient participates in decisions affecting his or her perioperative plan of care The patient is free from signs and symptoms of infection The patient has wound/tissue perfusion consistent with or improved from baseline levels established preoperatively The patient is at or returning to normothermia at the conclusion of the immediate postoperative period The patient's respiratory function is consistent with or improved from baseline levels established preoperatively The patient's cardiovascular status is consistent with or improved from baseline levels established preoperatively The patient's cardiovascular status is consistent with or improved from baseline levels established preoperatively The patient demonstrates and/or reports adequate pain control throughout the perioperative period The patient received appropriate medication(s), safely administered during the perioperative period Acuity Level PACU I FT Entry 1 Start Time 07/10/22 14:40:00 Stop Time 07/10/22 15:10:00 Acuity Level Acuity Level I Last Modified By: Erma Ortiz RN 07/10/22 15:17:22 Finalized By: Erma Ortiz RN Document Signatures Signed By: Erma Ortiz RN 07/10/22 15:17 Normal [facility] Main OR PACU II Recordon Main OR PACU II Record PACU Phase II Document Type FT Summary Primary Physician: Terrell Martinez DO Finalized Date/Time: 07/10/22 18:59:59 Pt. Name: ADONAY MITCHELL/Sex: 1955 Male Med Rec #: [id number] Physician: Terrell Martinez DO Financial #: [id number] Pt. Type: A Room/Bed: [facility]/ Admit/Disch: 07/10/22 10:47:23 - 07/10/22 16:30:00 Institution: Case Times PACU II FT Pre-Care Text: Identifies barriers to communication and implements measures to provide psychological support and determines knowledge level Develops individualized plan of care, and ensures continuity of care Maintains patient's dignity and privacy, and maintains patient confidentiality Identifies and reports philosophical, cultural, and spiritual beliefs and values Identifies individual values and wishes concerning care administers prescribed antibiotic therapy and immunizing agents as ordered, Evaluates postoperative tissue perfusion Implements thermoregulation measures, and monitors body temperature Evaluates postoperative respiratory status Evaluates postoperative cardiac status Evaluates postoperative neurological status Assesses pain control, collaborated in initiating patient-controlled analgesia and implements alternative methods of pain control Verifies allergies, administers prescribed medications and solutions, evaluates response to medications Entry 1 In PACU II 07/10/22 15:15:00 Discharge from PACU 07/10/22 16:30:00 II Outcomes Met? Yes Last Modified By: Laura Manuel RN 07/10/22 18:59:57 Post-Care Text: The patient demonstrates knowledge of the expected response to the operative or invasive procedure The patient's care is consistent with the individualized perioperative plan of care The patient's right to privacy is maintained The patient's value system, lifestyle, ethnicity, and culture are considered, respected, and incorporated into the perioperative plan of care The patient participates in decisions affecting his or her perioperative plan of care. The patient is free from signs and symptoms of infection The patient has wound/tissue perfusion consistent with or improved from baseline levels established preoperatively The patient is at or returning to normothermia at the conclusion of the immediate postoperative period The patient's respiratory function is consistent with or improved from baseline levels established preoperatively The patient's cardiovascular status is consistent with or improved from baseline levels established preoperatively The patient's neurological status is consistent with or improved from baseline levels established preoperatively The patient demonstrates and/or reports adequate pain control throughout the perioperative period The patient received appropriate medication(s), safely administered during the perioperative period Finalized By: Laura Manuel RN Document Signatures Signed By: Laura Manuel RN 07/10/22 18:59 Normal [facility] Main OR Preoperative Recordo n 07-10-2022 Main OR Preoperative Record PreOp Document Type FT Summary Primary Physician: Terrell Martinez DO Finalized Date/Time: 07/10/22 14:27:04 Pt. Name: ADONAY MITCHELL/Sex: 1955 Male Med Rec #: [id number] Physician: Terrell Martinez DO Financial #: [id number] Pt. Type: A Room/Bed: [facility]/ Admit/Disch: 07/10/22 10:47:23 - Institution: Case Times PreOp FT Pre-Care Text: Verifies consent for planned procedure, identifies individual values and wishes concerning care, includes family members in perioperative teaching Entry 1 Patient Times. In Pre Surgery 07/10/22 10:55:00 Out Pre Surgery 07/10/22 13:55:00 Outcomes Met? 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 He has failed conservative care. Please see office notes, history and physical as well as attached magnetic resonance imaging arthrogram. The pros, cons, risks, benefits were reviewed. Consent form is signed and charted. Site is marked preoperatively. All questions are answered preoperatively. PROCEDURE IN DETAIL: Mr. Mitchell is taken to the Operating Room and placed in the supine position. Anesthesia is provided. Well padded tourniquet is placed on the left upper brachium. The arm was prepped and draped in sterile fashion. Finger trap countertraction traction unit was placed with traction in sterile fashion. The arm was exsanguinated. The tourniquet was inflated to 250 mm Hg. Once timeout is confirmed 10 cc of 0.25% plain Marcaine was infiltrated in the joint. A 3-4 dorsal portal incision was made over the proximal carpal row. Blunt dissection was performed with mosquito down to the capsule. Extensor mechanism was protected. Trocar was utilized for introduction in a 3-4 dorsal portal into the proximal carpal row. Utilizing visualization the articular cartilage of the scaphoid was pristine. The scaphoid fossa was intact. The DRUJ was intact. Distal ulna had some early fissuring. The lunate had moderate chondromalacia and degenerative change. The triquetrum had early degenerative change. The scapholunate and lunar triquetral ligaments were intact. TFCC had a large complex tear that was displaced into the joint. A dorsal 5-6 portal under direct visualization was performed and debridement of the TFCC tear was confirmed. Probing was utilized as well as a 2.0 mechanical shaver with the small arthroscope. The chondroplasty was performed of the lunate as well. Stable margins were achieved. It was copiously irrigated out. All instrumentation was removed after final pictures. Tourniquet was deflated. After one simple 4-0 Nylon suture is placed in the dorsal incisions 10 cc of 0.25% plain Marcaine was injected. Bacitracin, Adaptic, well padded sterile soft dressing was applied. The patient was awakened from anesthesia. Tourniquet was deflated and he was transferred to the Recovery Room in stable and satisfactory condition. CASE: Clean and elective SPONGE AND NEEDLE COUNT: Correct SPECIMEN: None PATIENT CONDITION: Satisfactory Bradley Rico Dictated: 07/10/2022 [id number] Transcribed: 07/10/2022 [facility] Comment on above: Result Comment: Elec tronically Signed By: Terrell Martinez DO\.br\Date and Time Signed: 07/10/22 16:04 EDT Outpatient Surgery Discharge Instructionon 07-10-2022 Outpatient Surgery Discharge Instruction [address] [address] Patient Discharge Instructions PERSON INFORMATION Name: ADONAY MITCHELL Date of : 1955 Current Date: 07/10/2022 15:56:02 PHYSICIANS Admitting Physician: Terrell Martinez DO Discharge Diagnosis: Tear of triangular fibrocartilage complex (TFCC) of left wrist ADONAY MITCHELL has been given the following list of follow-up instructions, prescriptions, and patient education materials: PATIENT FOLLOW-UP INFORMATION Diet: Regular, Drink liquids and eat a light meal Discharge Activity: Ambulate as tolerated, Arrange for a responsible adult supervision for 24 hours, Expect mild pain, Expect minimal amount of drainage and/or bleeding, Do not lift more than 5 lbs Discharge Restrictions: No driving for 24 hrs, Do not operate machinery or tools, Do not make important decisions for 24 hours, Do not drink alcoholic beverages for 24 hours Call Your Doctor For: Persistent or heavy bleeding, Temperature above 101.5 degrees, Redness, swelling, or pus at operative site, Severe pain at the operative site, Persistent vomiting Wound Care Instructions: Keep incision dry, Remove dressing as instructed Remove Your Dressing In 2 Days IF UNABLE TO CONTACT YOUR PHYSICIAN AND YOU FEEL IT IS AN EMERGENCY, GO TO THE NEAREST EMERGENCY ROOM OR CALL 911 I, ADONAY MITCHELL, have received the attached patient education materials/instruction s and have verbalized understanding: May we do a follow up call? Yes No I was present when discharge instructions were given Patient Signature Date Clinican/Nurse Signature Date Follow up: With: Address: When: Terrell Martinez [address] [place], [place] [id number] [facility] (1) Comments: Keep scheduled appointment Pharmacy Information: You may receive a survey from [facility] asking you to rate your care experience. Your feedback is important and will help us understand what we do well and how we can improve the quality of care we provide to you, your loved ones and our community. It?s an honor to serve you. Thank you for choosing [facility] HERE ARE THE MEDICATION CHANGES THAT OCCURRED DURING YOUR HOSPITAL STAY Medications to Continue with No Changes [facility] [address], [address] [place], [place] [id number], [phone] acetaminophen-hydroco done ([place] 325 mg-5 mg oral tablet) 1-2 tab(s) Oral q4hr PRN Pain. Duration 7 days.; as needed for pain. Refills: 0. PATIENT EDUCATION INFORMATION Instructions: Triangular Fibrocartilage Tear A triangular fibrocartilage tear is a tear in cartilage or tissues that connect bones to each other (ligaments) along the pinkie side of your wrist. The cartilage and ligaments in your wrist help to cushion and support the bones of your wrist. What are the causes? This condition may be caused by: ? Falling onto an outstretched hand and overextending your wrist. ? Doing repetitive motions (overuse) that put too much pressure on your wrist. What increases the risk? You are more likely to develop this condition if you: ? Have one forearm bone that is shorter than the other. ? Participate in sports that put pressure on the wrist, such as: ? Gymnastics. ? Tennis. ? Golf. ? Baseball. ? Racquetball. ? Hockey. What are the signs or symptoms? Symptoms of this condition include: ? Pain or tenderness on the pinkie side of your wrist. ? A clicking or popping sensation in the wrist. ? Reduced mining and quarrying machinery repairer strength. How is this diagnosed? This condition may be diagnosed based on: ? Your symptoms. ? Your medical history. ? A physical exam. During the exam, your health care provider may move your hand and wrist to determine what is causing your pain. ? Tests, such as: ? An X-ray. This may be done to check for broken bones. ? An MRI. This may be done to check ligaments and cartilage and to look for broken bones that did not show up on your X-ray. ? An arthrogram. This is a kind of X-ray that is taken after a dye is injected into your joint. ? Diagnostic arthroscopy. This is a surgical procedure that lets your health care provider see inside your wrist joint. It may be done if the cause of your wrist pain is not clear after you have other tests. How is this treated? Treatment for this condition may include: ? Resting the wrist. You may need to avoid or modify your participation in sports or other physical activity for a period of time. ? Icing the wrist. This can help with (more content not included)... Normal [facility] Patient Education - Texton 0 07-10-2022 Patient Education - Text Orthopedics Triangular Fibrocartilage Tear A triangular fibrocartilage tear is a tear in cartilage or tissues that connect bones to each other (ligaments) along the pinkie side of your wrist. The cartilage and ligaments in your wrist help to cushion and support the bones of your wrist. What are the causes? This condition may be caused by: ? Falling onto an outstretched hand and overextending your wrist. ? Doing repetitive motions (overuse) that put too much pressure on your wrist. What increases the risk? You are more likely to develop this condition if you: ? Have one forearm bone that is shorter than the other. ? Participate in sports that put pressure on the wrist, such as: ? Gymnastics. ? Tennis. ? Golf. ? Baseball. ? Racquetball. ? Hockey. What are the signs or symptoms? Symptoms of this condition include: ? Pain or tenderness on the pinkie side of your wrist. ? A clicking or popping sensation in the wrist. ? Reduced mining and quarrying machinery repairer strength. How is this diagnosed? This condition may be diagnosed based on: ? Your symptoms. ? Your medical history. ? A physical exam. During the exam, your health care provider may move your hand and wrist to determine what is causing your pain. ? Tests, such as: ? An X-ray. This may be done to check for broken bones. ? An MRI. This may be done to check ligaments and cartilage and to look for broken bones that did not show up on your X-ray. ? An arthrogram. This is a kind of X-ray that is taken after a dye is injected into your joint. ? Diagnostic arthroscopy. This is a surgical procedure that lets your health care provider see inside your wrist joint. It may be done if the cause of your wrist pain is not clear after you have other tests. How is this treated? Treatment for this condition may include: ? Resting the wrist. You may need to avoid or modify your participation in sports or other physical activity for a period of time. ? Icing the wrist. This can help with swelling and pain. ? Keeping the wrist raised (elevated) above your heart. This helps reduce swelling. ? Using a splint or cast. This helps keep the wrist still so it can heal. ? Doing physical therapy. This helps restore strength and range of motion in the wrist. ? Taking anti-inflammatory medicine, such as ibuprofen. These medicines can help reduce pain and swelling. ? Having surgery. More serious tears or complete tears may require surgery to repair a ligament. Follow these instructions at home: If you have a splint: ? Wear it as told by your health care provider. Remove it only as told by your health care provider. ? Loosen it if your fingers tingle, become numb, or turn cold and blue. If you have a cast: ? Do not stick anything inside it to scratch your skin. Doing that increases your risk of infection. ? You may put lotion on dry skin around the edges of the cast. Do not put lotion on the skin underneath it. If you have a splint or cast: ? Do not put pressure on any part of the splint or cast until it is fully hardened. This may take several hours. ? Check the skin around it every day. Tell your health care provider about any concerns. ? Keep it clean. ? If your splint or cast is not waterproof: ? Do not let it get wet. ? Cover it with a watertight covering when you take a bath or a shower. ? Ask your health care provider when it is safe to drive if you have a splint or cast on your hand. Managing pain, stiffness, and swelling ? If directed, put ice on the injured area. ? If you have a removable splint, remove it as told by your health care provider. ? Put ice in a plastic bag. ? Place a towel between your skin and the bag or between your cast and the bag. ? Leave the ice on for 20 minutes, 2?3 times a day or as needed. ? Move your fingers often to reduce stiffness and swelling. ? Elevate the injured area above the level of your heart while you are sitting or lying down. Activity ? Return to your normal activities as told by your health care provider. Ask your health care provider what activities are safe for you. ? Do not use your wrist to support your body weight until your health care provider says that you can. ? Do exercises only as told by your health care provider. General instructions ? Take bstb-xxt-njfewfa and prescription medicines only as told by your health care provider. ? Do not use any products that contain nicotine or tobacco, such as cigarettes, e-cigarettes, and chewing tobacco. These can delay healing. If you need help quitting, ask your health care provider. ? Keep all follow-up visits as told by your health care provider. This is important. How is this prevented? ? Warm up and stretch before being active. ? Cool down and stretch after being active. ? Give your body time to rest between periods of a (more content not included)... Normal [facility] Coding Summary.on 07-04-2022 Coding Summary. [id number] W w+PGhlYWQ+TI1VWXJhG51 plSJhxG0lX7OCNIuNMzqs QZSGNUiPXwNwoaEtQR2kj XNjZXJu IC8+IY4rOYFkSzcveLSau 4L6tXS7B39qna3eFBmpgR E7XMMxUvXpplhqw9ghsZn 6IDcuNmluOyBt WMNgaS91ZNO2hE60Ne14h IPrsEVlx5nwxUd8CgAkRP LgBQW8aMxkCNurt3WbCLU wX41yzPJfb8V6 MJDzvCwfnUZdMyIcaIN3h Q5uQIxspupuc9bgckpnHf p6ls64wXWnz3S2mLS0T4F rvxT1NSFccLBc LhhktKXLbV7xasjgz9unq ltzHbQgUQZcPDr7VZv2QG DxmApwCjWtEL90HPD4BWX bgfSjV5OtSCEj bJewKwB1v7Z2Mo1NT1XLT indI6CVAAKSFTbmcIO+PC 65lp21Q2QhZhwiVmc2AYO wMLT8vQU7hE4i FNIyDTnzn7A6mRU2U4Qom vIthy5uu5jrGEUdNHzsN7 5ynSJvd5W2AIDmmLV7ITL ikUcfVjBihN42 Oyc+UTRsgIbrz8KgZivls 2sce9egmYh0PcbkKQRytv TpePveMQD3t9CpJr8tTPS eqQC9uWS4nA2f KvWkUtU8RAspA306XbHki EYgGrwkS46kD7GtlNO+PH CgJbk6QFRraFtgUU3oU1P hZGRpbmctbGVm dJlrNT0kAXDlgtmuBYQge T0oGNHvY4k0GkPhQpO8KK piH9NyOYUndidtUb76iT2 aXzKsLpM4LZnk K7NpslW2JQMjmTQfUFxmL MT4T44ct4U4MCKjHHDnKA Q9wEB7oJ2cjAerjngomYT mdDsgdmVydGlj EKqaWCwqI117XZHqkQeuV kNvZGluZyBEYXRlOiAgMD MvMjgvMjAyMzwvdGQ+PHR uXPE5nAfpUVMg qTJdPEfwXo3qxDnzfGmrJ S1fBYPhthwxNLVthI3uCZ WekJBwpAvsVO3cSPOwetn fj835IrAyLJR0 MRMucWIlH1YmgV5lZbKlA YDlOXTkR8UhdONcNPzxG1 97UJgjEhG2QZRhexPxX4W sLWFsaWduOiB0 u6S2Mx0Ni2OyziymJ5Kfe BEuEwSbIqjlIVr8R1DyEe wvdHI+WG44MIQbOS68DRq 2SDX8rTwlLNli KOHgW0EbyR2qWsTrPATeA GRkOyc+PHRhYmxlIHdpZH RoPScxMDAlJyBzdHlsZT0 xNc6yLOAsPKRl eOcsdXHrDqViv2eiYCCgE GknKS0jtEjlE1AjuDV9XR Wtj6s8Uc23P70xK7CzoUU +UMUryIV5tMW5 uX4lKlVoJyV6CXqcL145D sRumSVoZiotc5lpn9zjrT o7MmP5PCZxzjOojGauLUS 3z1TbVl17D96y IHdpZHRoPSIxNSUiIHZhb Rqwmy9jfY1aEp2+PGNvbC V9tKA6lR1vCsFtPiY3ZVg hP117DiJwzGNe Dalqv9ejc6uohKq8TmOtV TLihbVqxUnaELW8q9TmLt 81T2AqaSzli6RyRmr9xf5 5kTGck2K3mLG7 F6NcUWAcefxtpDEueXqsG R5zFMBwxwqzKYUwmH0nOV PiE9x3DuKiJmP6WHggF7D dplW1TKDnmERz XICnxCONwL9niomfu7bdt lojSrBxURZoTOd6JDh1DU WdjSyiAuWaQOO9QfH7ZMO 0lIBbrV2ulHep oqvhyE9tIru+CCL7hOHmx JNQHL6gPtyfqOK+PHRkIH G0tOjjNVftOFSkwT8eSEY vT5o1KnPdAvL0 OFdvQ3PsieF5ZICdvLXjZ SPehGZMfO6cqcsri8rwye ndXvWcWFErXMe0FBz2ZAH saWduOiBsZWZ0 ZgE7IMY3pSDxuP4ibDszb vnmbS6vLdn+QmlydGggRG A0VMj5H2GcNec8IIDwwKv qWG0rnHOlIBps Sh4jiSxsnZzlER4lRAIbc mnqf949GkTcm0mcQXWzxB IkFVurFIY7Y29ty5A6QFP iTWEcTCV5kQA6 zF0sdKoqefygwHZcvTnta oMcsKcjWYklUMifZ237AD PxfLovGsBvBSw6J6QdZhs 9OQYmdPnjLL1j eISyZVytCt5ruOnhwHijM Q8qLSSquqpit041BaFxi6 vrZSXqgBWqPUeeXPM5B80 dj2Y6FGLzNWCg JXD3bEW0kW3xuAkpldkdf GVmdDsgdmVydGljYWwtYW odD974XYAsiWnbAzEqdIe 8Y5FiFea3IGOk rEqnWO9gdVLbYSfsJw4ft HesjVceTG3sETGdgviow8 56TbZpv6mfVNUzkDFuMUp sZZU9E42ej1G7 UDZhTYVdMYB2qOJ3bK5oj GlnbjogbGVmdDsgdmVydG pvVIlxLFqpF067FHPgoYz nPlBhdGllbnQg IRiqZEn1V8PyEncmsAV+P J95LSGsOL87lBXmsXRiq9 wpcMc6GqDrTTFjBRA9cIa zRTkto1LsUDMo W36vkRKwt4T8MOUfsEidk LGmKrNjgHZ2xU1qCDouiu zfx9mgnlgaSuuot7uhfl0 5eW44P82mDCyq ZHRoPSIzMCUiIHZhbGlnb j7buQ2uDt9+EVSxcQA6vB E4qG4sCLRlVfF9VWxpH90 9InRvcCIvPjxj a7ame0geoBy1LfM1UOFdr wXxsSlxXCA5w4NlEb84E2 9sIHdpZHRoPSIyMCUiIHZ sjUtngc6fgC9v Ii8+JVXtpPQ7bHJ3tJ8xU xGkDkS8NGelY985EpOvqN DmYctvF53aV4HwaPL+PHR tXak0IJFoqNnr HE0lqVInEWvdEg4eQDH2E gHfHpYxKFnfZ1RlQRWyal jdtrupzFH6NBKmZPKiyO5 3Kh2jbYvjIXDc nUECkG0yqmbjo6jkrbiwN oGdBIXmBGt2OZw5LNRiqR ebXjBvWGG9KfG4NIH4vOA noI4siOaanpwq yW1pX6FeNPErhxfaHs99q E1yRjPcUuK6SWhmHox+Rk qWQ6ykVWnAOPCJVhHOHJ3 9QA62xNUwg4N6 tYE5S7VrIJFrujokejwqq HO6FNAoLLQkyU16yMRwMH ofXw5ob8S2a470MQAoLTP ugZ12Gu1znEgu UXZlsZFFyD8pufspc2jpc jziOvNkHOPuELc5ENg5ZE ZouLjjQePhBGY5AsL9IJI 9eLBeuF2wmByd qjsxfE5lYwf+MTAvMDIvM Mi3DhferQT+PGZtPYC6bG zeYEmoOGQejO8lWHQaE0o 3YkWqNsJ9UPvj Q2YlMJVszdoiXh32aM2fG nCxMmT9XQeuB5QiioC0MV QkjTIqYOusSRQ2I86xx1D 8EDXgIALnWEC2 bSG2sJ1zoMvebcbdbHEid DsgdmVydGljYWwtYWxpZ2 15RDWecVeyJuU7XMezSKJ zHR99VW32jYRk g1Z0cPV9G1JmSPMezdtnq dgmoIU9KPWwQLZkeC81hB EpGFldAz6qb7U4a696GVI nKJHdxF57Cc9t rCmaNYLqrHSRiY2ecohmx 1sibpopRqPwNNTrLRc9QK a9ZHQiwStcOyNiBCG0UbA 8SNB9jOYvdP0l kTaaradanY7bVge+TWFsZ TwvdGQ+EOQiJRW8mPvlHE oxECNunZ6xOHPfA2r7PiU mIzL4IKnoI3Is PQUmyhrvGf12pM1rAnDzW bO5HEufA2PkdmX1YQLepG AeUNmvMRY7N82bz9I6DJF nPDFrHYJ5jIG6 iP1gyUbcafmqqFTygMpwh dGdoKncSHqrWMzmM426LE YqzZlkVe06kPCskZcnvsM 2I1IhIlmizJZ+ DZ70QCEtBH38cVTmwDBbh 1xrlMl1SlUsIKTaKCS4cZ fsFKdyh9MxAQPqD72lrST wt1M8TDEltHsh nMOlUbQmkKJ7wV5wQCwpj mztt3aiidqbOxugw3btll 56aK41P05zIWsvQWBvLIX zMCUiIHZhbGln df7doV3yOu5+GKVcpYB3t IX7dG1jLlVgWgA4BXoaP2 38VdMntLEkOctiv6omi3f ziPx4QyKiFXJe rdThhFigJNR1t6NqRy54K 29sIHdpZHRoPSIyMCUiIH DznOxspf4huT9aJt1+PC9 tq7rsge98bX95 dHI+KZQkTDL6bDsnIPocO LCszL9bCPavXaD9SPOxQf MsgK92oYZcFOscXg0mgSw amTnaUU8nJNKu swyje642QwQsu2qvJLOrz KYtDJvrMKS5T99pg5Q8KX BtDIAtYNE7gBI5mZ3ibIr nbjogbGVmdDsg lwKvkHjfYGovXXtmI643I YJuhFfxJjOgaGEgZ7frmh HNBD9hMihmoGY+PHRkIHN 0eWxlPSdwYWRk kL9eSTGbP1x9HcCcKkC1V AexC1TabgQ7XGPjoDDdUF ZwzCQMaD7hgujjq2ehkvi gIzAwMDAwMDt0 RUf7VPMbzWykEtXcIFV2B bP3LNQ0vZOuqK0glBvzvr sczS8xApq+RklOOjwvdGQ +ZZBgNDX8wQyn TIxaQURenI2oQHIkE8k2T gWsJrN2PLnhX6CqqgD8BC JueRLhVLIsvMAMwX6cdiu fh8juagjgLcOu QPEbHKc6DQq0MVKbjPzvS dJnSRA3TdP7MDU8bWJkjM 1myXxnudzrtL5wKlh+TVJ OOjwvdGQ+PHRk RSQ5gFutIFfmHVAmoX9zK GVuB9c8ThYrKpQ4KXiyK4 YdvcB4YUGieLPsBHDdnNK XhZ0elikdl4he obuqFeKaKSLsDUm7RXg3G QNegZbpQdQdJWF7AeT0XM K6rGNfkT1kfGkrlapmyT9 wOyc+HJX2UDO2 AW77PM94O8QdKcezrRUkk +PHRhYmxlIHdpZHRoPS jqFSRcCqOjlShxLP5wIj3 yZGVyLWNvbGxh cHNlOiBj (more content not included)... Normal [facility] Consent for Procedure/Surger yon 07-04-2022 Consent for Procedure/Surgery [id number]:127 Normal [facility] BUNon 06-30-2022 Urea nitrogen [Mass/Vol] 17 mg/dL Normal 5-21 [facility] Comment on above: Performed By: #### 1 [id number], 7614164, 2633822, 9829867, 2017240, 9654582 ####[facility] [address] [place] [address] CBC w/Indiceson 06-30-2022 Erythrocyte distribution width (RBC) [Ratio] 12.7 % Normal 10.9-14.2 [facility] Comment on above: Performed By: #### 1 7488075, 3284578, 9480754, 8800497, 1005580, 8294642 ####[facility] [address] [place] [address] Hematocrit (Bld) [Volume fraction] 38.5 % Normal 37.7-49.0 [facility] Comment on above: Performed By: #### 1 7238887, 2717869, 6623832, 8815589, 6624434, 9008866 ####[facility] [address] [place] [address] Hemoglobin (Bld) [Mass/Vol] 13.0 g/dL Low 13.5-17.5 [facility] Comment on above: Performed By: #### 1 3286749, 6844820, 3075388, 2629082, 3166881, 8864712 ####[address] [place] [address] MCH (RBC) [Entitic mass] 31.7 pg Normal 27.0-34.0 [facility] Comment on above: Performed By: #### 1 8919869, 0896667, 0479063, 6835129, 5604054, 2950198 ####[facility] [address] [place] [address] MCHC (RBC) [Mass/Vol] 33.8 g/dL Normal 31.4-36.0 [facility] Comment on above: Performed By: #### 1 6314048, 5435795, 2114428, 4658404, 4201825, 2687445 ####[address] [place] [address] MCV (RBC) [Entitic vol] 93.8 fL Normal 80.0-100.0 [facility] Comment on above: Performed By: #### 1 9077795, 4155568, 6438215, 6499746, 1385798, 9887503 ####[facility] [address] [place] [address] Platelet mean volume (Bld) [Entitic vol] 8.2 fL Normal 6.4-10.8 [facility] Comment on above: Performed By: #### 1 8814229, 7986063, 0684179, 9421603, 0061471, 4348639 ####[address] [address] Platelets (Bld) [#/Vol] 219.0 E9/L Normal 150.0-500.0 [facility] Comment on above: Performed By: #### 1 1933124, 9240609, 0510452, 1387824, 7838871, 6038592 ####[address] [address] RBC (Bld) [#/Vol] 4.1 E12/L Low 4.3-5.9 [facility] Comment on above: Performed By: #### 1 7588326, 2024616, 5467847, 0408033, 9365918, 8257657 ####[address] [address] WBC corrected for nucl RBC Auto (Bld) [#/Vol] 6.1 E9/L Normal 4.0-11.0 [facility] Comment on above: Performed By: #### 1 3487456, 5681797, 0909107, 7993076, 3095101, 9071883 ####[address] [address] Consent for Treatmenton 06-08 Consent for Treatment [id number]:127 Normal [facility] Creatinineon 06-30-2022 Creatinine [Mass/Vol] 1.2 mg/dL Normal 0.5-1.3 [facility] Comment on above: Performed By: #### 1 [id number], 0503343, 3943733, 1892865, 8891436, 5937343 ####[facility] [address] [address] Glucoseon 06-30-2022 Glucose [Mass/Vol] 82 mg/dL Normal 55-199 [facility] Comment on above: Performed By: #### 1 6503936, 9818351, 4580816, 6026120, 1941192, 6502350 ####[facility] [address] [address] Lyteson 06-30-2022 Anion gap [Moles/Vol] 10 mmol/L Normal 6-16 [facility] Comment on above: Performed By: #### 1 [id number], [id number], [id number], [id number], [id number], [id number] ####[facility] [address]Nor[address] [address] Chloride [Moles/Vol] 102 mmol/L Normal 101-111 [facility] Comment on above: Performed By: #### 1 [id number], [id number], [id number], [id number], [id number], [id number] ####[facility] [address] [place] [address] CO2 [Moles/Vol] 29 mmol/L Normal 21-31 [facility] Comment on above: Performed By: #### 1 [id number], [id number], [id number], 5970215, [id number], [id number] ####[facility] [address]Nor[address] [address] Potassium [Moles/Vol] 3.8 mmol/L Normal 3.5-5.3 [facility] Comment on above: Performed By: #### 1 [id number], [id number], [id number], 5944648, 5364699, [id number] ####[facility] [address]Nor[address] [address] Sodium [Moles/Vol] 137 mmol/L Normal 135-145 [facility] Comment on above: Performed By: #### 1 [id number], [id number], 8352700, 9617415, [id number], [id number] ####[place] [facility] [id number] [place] [address] XR Chest 2 Viewson XR Chest 2 Views Exam Date/Time: 06/30/2022 15:53 EDT Reason for Exam: P.A.T. Report IMPRESSION: NO RADIOGRAPHIC EVIDENCE OF ACTIVE DISEASE IN THE CHEST. CLINICAL INFORMATION: P.A.T. COMPARISON: APRIL 25, 2019. FINDINGS: Two views of the chest were obtained. Heart and mediastinum appear normal. The lungs appear clear. Visualized bony thorax and remainder of the chest appears unremarkable. Ordering Provider: Milan Sanchez FINAL REPORT Dictated: 06/30/2022 7:12 pm Ramez Mcnally MD Signed (Electronic Signature): 06/30/2022 7:12 pm Signed by: Ramez Mcnally MD Transcribed by: RAMÓN Technologist: ALLISON Technical Comments Radiation Dose: Ka,r in mGy = n/a DAP = n/a Normal [facility] eGFRon 06-30-2022 GFR/1.73 sq M.predicted among blacks MDRD (S/P/Bld) [Vol rate/Area] mL/min/{1.73_m2} Normal >=59 [facility] Comment on above: Order Comment: Order added by Discern Expert. Result Comment: eGFR is race adjusted. AA=. Performed By: #### 1 [id number], [id number] ####[facility] [address] [place] [address] GFR/1.73 sq M.predicted among non-blacks MDRD (S/P/Bld) [Vol rate/Area] mL/min/{1.73_m2} Normal >=59 [facility] Comment on above: Order Comment: Order added by Discern Expert. Result Comment: Cinetechnician zafar kidney disease could be indicated at eGFR's of less than 60 mL/min/1.73m2. Kidney failure is indicated at less than 15 mL/min/1.73m2. Performed By: #### 1 [id number], [id number], [id number], [id number], [id number] ####[facility] [address] [place] [address] Coding Summary.on 06-29-2022 Coding Summary. CD:[id number] W w+PGhlYWQ+IS2UMFDgQ42 roHTakM5cM6HHMShTGkgr FRHBVVxOUfSbseIdZE9je XNjZXJu IC8+MQ1wNHVpXcawrJGyl 0L8kUZ6G16nqb2nXBgzzX L7VJEeZbEzqsuih5jckZv 6IDcuNmluOyBt WBGogC31EPM3nC08Ag60r LXryGVsu1oehXi7VhRhHX SsKCJ5kUyzWEgyl6NvMWU eR21dbABnm6Z7 GBTxsZhvdGZlJqRerKU6v L8wIOxatocmw0znpamkAr t2zb38cAXqd3K2mMS0I1H aetQ6POZraETg RsnydIZNvO7vqrfqx4fpy czqDfTuVNUoAIp6BWp4KJ SjpXrlXkHvIS97ZCQ4OSY ateOyS5LfJSAx qCycSwP6p1N1Hv1NE2OBP zszO7YZBFGWSEqxuZL+PC 61tj48B5FcIuabVia2TUZ kMUY9bPI9kR7e PIKfTXaqp3B8bWV6F0Okq fDxva9vr2psKLYbHSkkZ5 9yiTMgv9V8OUUquGB4YKA wvMulEtPzmL78 Oyc+JLDidJmur8OlSmpkd 5rvy9xndMf3OfinRUKsfq TmhXdmTZP7f3UsUi6gCWE miOZ3mLQ7lJ3b LkHgCvL2QJucJ462JfBca WIpYnlgF59nS2LncMS+PH HwRse1ZCTqbIvuMV1jQ8J hZGRpbmctbGVm aXjeJK3mYOQmekmeBNXox H0oRDRtM0v5CvQeWyL2XU kzZ3SbWXZrfbcdHx22jV8 bYnQhAtP7JTso N4EsqmW1ONYmkOEgLNhyZ MT1X03zm7G6ADNmDDCyZM I0wZO8sO9xhTzlemcwrLB mdDsgdmVydGlj GSgoZFemI971CATcwPrhG kNvZGluZyBEYXRlOiAgMD MvMjMvMjAyMzwvdGQ+PHR uGAG4yBujBMRr jKCjSAsjLc4ioEhkgDqmA S0mFHXulgjpGFFptU0iIA RdpRFszHrtIZ3qJKMiuca jg131RnAaHFW6 SAZbsNXgN0DhcT2lMzOgX PHxRMCtZ1OroJUbXGnoD2 86CTfcVwV8REXzstSgT0T sLWFsaWduOiB0 b3N7Qg9Ju7EhspxbE5Zoo GHaHcArWlmcAMo5Q4CsRq wvdHI+YA56RQPkIK85BUx 6ARV5zWlkNLps CIUqM3HukS0oViWnKLHgE GRkOyc+PHRhYmxlIHdpZH RoPScxMDAlJyBzdHlsZT0 eNk6fTSFpBIRi fPbbjCEhSuApj2puJRUkD TqeIR3ooWxsL5ZuoUG8BP Vrd7u6Wi53D82gW7DwhCR +TEOifAR2hJA3 zR7hRjLpTtN1CCmlS074E uMevFAvNqywa9ekb2rwdC x6MqG3VRZjrpVxhUhlOFV 6d1WkZu95E24j IHdpZHRoPSIxNSUiIHZhb Uypmd1glR4nIk1+PGNvbC O0iLN5xB1zQiOdQcX9OQf sL134SiVbfCRn Bzmwx0vhu7ikoQc3LxViH EFuzpUmyRjbSOC5b9OqHe 22R2ZxxJdpf1WhEqq1zi1 6vCWpj5T0cGS6 C2YcFGYarqymhOGrxQxbF U7hJYBpbswuNJUkqG9pUZ WeV3b8OhQgMaZ4VXfxS1J flnG4EJVvxLPt LHVfaMXCpJ1yhtylx5axv cntMlAeDYAkWJa0WWo7DW DenIvsBjPiEBU8XaB4FHC 5oCTszJ2vkXqy cuwiuV2xBoo+ZLW1fURvy JHYIV9vJktydVQ+PHRkIH X2wMhnOFwyZFRkeZ4yJNG dI5b0RjVlBcO4 NZwlG8AiboR5EOIkmDNlV WNyjAWPbZ1khupig9wdjb rjTkXuFZXtQUl5SSi9SHC saWduOiBsZWZ0 BcI7DHK4iEVesV3epVpmd qhvdD3oAqa+QmlydGggRG Z9CDc5Z5SkEgz4YNVmfBq eKH1ibFNrIKxw Er4ndFoqiNauZG8zVFFqn ilkw639GqErl6yrZEFetC ZtQBdsNVT9L99dt2R5THL xDAVeNOV0yEJ0 hM5rzFvcnetqfDZjqSbyi cLglKsqFWitHNbjF988KN PmwLwxKaWePXp1A3DaVlp 7WVCzsElgPH5y uWJsDNndNr9lrAyufXpvE T9gUYSnmetbp489ItUmy8 ecUTJpnPGlKXcyNBO8V74 hz3U6ABGfZLYz ODY2cLL1kK7xgZaltbepm GVmdDsgdmVydGljYWwtYW dhX376HPOpxNqgZrCsrCh 7N3HnHzg1HOSj yDjqWR0ypJOjERywCs1jr FvlxUolBG7zJUTjynqsk5 74GdHbv5svVHRreDOyZJq sNAL1M29mz6H2 SEWjXFQxCLB5kLU7nC8lt GlnbjogbGVmdDsgdmVydG aeZPcaDJamW482MGNsmRi nPlBhdGllbnQg JCnzWNn6K8EoOgctyQR+P B17XFVwUR72dAYoqLBvo6 rwuZe0MeXyJWVnUOG4bAj qJFhwz5BaLCYc C41qoJDvh2Y3FQNhfYylf HIgJvUpnJO4zG7gTAsfqo oig3zanedkZpyuy2pgun5 6kZ65K18cPYdb ZHRoPSIzMCUiIHZhbGlnb q8cmR8lDu2+XBJdzCX1nM M1oG1jHUEaMdZ0JYfbI59 9InRvcCIvPjxj y2gvo7qtjNj2MuP9PRIsp wPovPidWCP8g9TnIl69H6 9sIHdpZHRoPSIyMCUiIHZ ehGvqgd8ceM6q Ii8+FMRpkIW2wPH6nB7cK fYaNrG5LXolD832BuNjuU UhMhtsL69cW5BqzZL+PHR jAtp5PRUvbAnx YA1lbGTzYKgbDu7cTCI8Y vCxBvBnNVwaB4BoTHSxvg kbpejucHK5VDCpAVUrzX2 7Uo8scWtrCHUy eSBWzB2qpszvh0hotsrpQ lFlIRQhTCz5EUf0XBXvgD idJxRaMWS4FqG1PUY9lCU fjM1ukBcuniki cK1iZ5XkDYApatuiQm57b V6jErUhPmM9WTcxTxi+Rk hDC8iqDGxWDQKGErOTKB0 9ZC93wCOnh6U0 eMG9R2GhBRZhhmmvtynwl JX8BLCoFBCswH18yVCoAH rnXo5dq9U8b356YRFmWRQ bpG67Lh7poAsr MLJjnRWXjI1wegdnl7edh qteClSrGAZpAJv5MNv9PG SzgCceVrEsOKD4BdN5HZE 9ePWpaN8lrJaz lirxiB9oPaq+MTAvMDIvM Tn5FqkzvHU+XTEpQGH9bH neJJufZXPcjO3sDTSnI4b 5ZbQzZxN4WMff H7FnNJFdnuayDa84nR5aY mKfSfW8NLacC6BndnD7WI QflVCkZZeqEEE9S33be4H 5UMZrWFIaQOB1 cPU1dZ8weRumhlvgbFVyz DsgdmVydGljYWwtYWxpZ2 16WSXzfLidAhJ9JZlcIEC hIE75NO10tGSe w5V2yFC5E3JtEZSdmkqfc fktnMP0VYVdNRJhwA69vO RyITpfNr5os4G1m623ESV xDTJbuU65Lg8s gMyxDVOquFJViE6mfqyiq 3gebwhuFvScUWUvAPw5YX p4QQLqtZtbOmBoPWZ2YbN 2JVA2oTVaoM6e rUymekmnfS8zNth+TWFsZ TwvdGQ+EPYuPJB1yBktWR miUBBkjT2iCZGrU4p4AmD vByJ4GPkrA6Cy AZMshrmiEk49vJ9dGkAlT iR9UZioI0ZjasC3HSPliN UbLJvdGYQ8S04js1R5MOJ mZMIbVIH1nHH1 kA4ycEupjlskvGBihXbhc kFelBsgPIrmLLwcE498GC PbwZvgGb32uLJjaVveiwG 9I7GjMgfczTZ+ JI77YOPkGD17rKCzcZCvg 1wgcXi6ImViIIUoWZY2dK uhLJfue1RlFPXfK44jdFS pt3L3YOHwqWtu cFRuQmBcrTL3pQ1cUWbzb sucb2mqgsyqDizfu7zjte 96xC89K55oHNhqVFYzLDK zMCUiIHZhbGln ob6waM2wLv0+EJSzvFJ0v FQ7fI3yGuQqIzS6MXsbJ4 14KlZfoOOoUuzeo4dsn3u wiLw7HeUuNBWu phVgrDfqMFO4c2XjLj46W 29sIHdpZHRoPSIyMCUiIH HhqLxnmt7oxR9yDk7+PC9 oh4ezma67hS79 dHI+XEFoNUH4sCjdCSlcR UPmyQ0rXCmeHeZ9JFYxFf SzzY24aVFtSAsvFa2xqTd dzNogPU3nSLVh dlqsk167OwXnx3pfDSAcp ZFkIYolVYM6Q74at7K6PL ErHORpCDH2oGC9yV5vdRx nbjogbGVmdDsg qiLmxVkgMIjeZLmsN071J HZccAihFnLypUJgP6ugaf JRRG0jKmfcuNQ+PHRkIHN 0eWxlPSdwYWRk zG9xDYCdX0n6NjNtGyU0L TfmI7YgqfO9FTIjzKYtZJ VjyAKOzS8zklegc7acrrh gIzAwMDAwMDt0 JKe3WZDmbKbeBhAlNVM9O gT5IIC2wMTwbX0esPumow fhtE5wHqh+RklOOjwvdGQ +VRWuHQX7vBvo FXavPKBocV0eVZUmZ5o5L bCyNmL2ZIwfC6CkylN8LF MykEVkKKXacVVChV9jrgz zw8pwrgkgLkMe YMFqEAq5RIp4WUBjhMtzN tUtUQB2TfY1AEG6bFMvxL 6vrJuwoxpifT4mSbh+TVJ OOjwvdGQ+PHRk EAR9xKcaTLvgNIAlzZ8xC LBaZ6f3GbIvRkV9ILohQ0 XxedA4HJQgoNTyEIMyjIS JjV6kyccqy2cy mophJoZiAVDkHDb0SPk2Z QNgwNuuBuJnMDM9OcI8VM S3wOUizT6bnIvloohagG1 wOyc+ANI9TIG1 AN07NV38X2FiXmzwvZJxp +PHRhYmxlIHdpZHRoPS hdAGQkIhWjfAwyHE0tOv9 yZGVyLWNvbGxh cHNlOiBj (more content not included)... [facility] Physician Orderon 06-29-2022 Physician Order [id number]# 1.00CD:127 Normal [facility] Coding Summary.on 06-22-2022 Coding Summary. CD:[id number] G h0bWw+PGhlYWQ+OW9NPST tP21fgSSdnX4zR3GMEObF SywgQVBQTElOSyIgbmFtZ J1mrDXyWWGv IC8+KL1qVMEmEmdxuQMum 2P6iAV3Y74kun0vTEaleJ T1FKEhWyPyrorew7zloMi 6IDcuNmluOyBt KRDidN11BCT2xZ02Qx85a SOpcTSga3phpNb2SgYhLX TdCJS0mIcfADemd9CjUHK pY40vxXSiv0O9 JJMirErgjWKtCqFmuBX4l K1cZYuvsxsez9iiiuqbAy u0yn29qXHxp9J2gWV7U5G lnuU1YPLmiMMm DpiuhYCUsM7yzvqas7voj taoBoTlNKFiULb5YAq1RO XxaJpmOdQsVR66SAR1RVN qwuOqK7JrSRZt sIdwUmD3b8D5Kj8SF5GGB yjpF4GPODYELKnavIU+PC 05yn27A1XaUlwpByn8IAY iBEZ0nWW9hF3w APIxULczf2B4nMK5S6Emm qCqtg5cq0vfBCXzRHwpV4 5tbTMib0H8ICGeaCG2ZJJ czUmcFeGasL30 Oyc+JDZjpZpuq9PfXxaab 5vft9ezmRs4BmziPBVvku QvcZwpKJS5q2SlRn1cUYZ qcDV9wHB3zE9a JuWfOyG2FSeoZ546RhJld FDdSknaF40pI3TxuVQ+PH AoGcv1LVUhyQddDC5wF4C hZGRpbmctbGVm nQpnPA0pZJYxnbgiVMLcr O2bGKPxW4w2FpTrSfM8HC jgM7KuXOBsahwjGw23iJ0 zEaChDtZ0MWxv S9EybkY5DCYcyOTiDAzaH UW6Z70oo8C6WTIgHWEgQL S1lHI9hX4zmWxgaqlpmGP mdDsgdmVydGlj YXkyTBmeD616VSMtpVtyL kNvZGluZyBEYXRlOiAgMD MvMTYvMjAyMzwvdGQ+PHR tMGZ0iPafNSPv sLYcZZesBx9mfLscxMjgW L9cUJTlqpnjVTUxmU8iTU IbuAXakSgcIR8pWFMkpyi og715BsLgUNS9 DFUzzMMjH2KepG2iJmTeX HNmJDRgQ3ThtVEvDOysF2 17EBxrSjN9MIZetoUwI5B sLWFsaWduOiB0 u6P8Bx7Co7GfjiwxV8Nbk HVzYcRtEbiuTCc9I7QxHl wvdHI+JT37XALdJU45QUf 9ADG1fFssEPti EOJaV3VytZ7pPpBhWGCnF GRkOyc+PHRhYmxlIHdpZH RoPScxMDAlJyBzdHlsZT0 mAz0aXWHpMCOh wHmbsITpIoBqf8vyOPZqI VwsKO5ilCrnV9SruDC2XB Bsx6u1Ok61H68vK4MzdVH +ZFByiSL1zSU4 eO0iHrWuJtQ3MOsvX476G rYdlJZlRfijm8wsb6ndlZ t3JtX3HPMsjwUdtHqqEMW 0i2HePn68I37p IHdpZHRoPSIxNSUiIHZhb Ibojy8laZ0tCl0+PGNvbC Q5lVA1rV3vVsNwPvE7WWw bA931QtDhmSXx Emlsw1zfo3fupZk4XvQgL ZDrlcZqiUzsKKX2s3WeRw 18R8RzjZqxh6XcOmc0hj6 7qPDux9T1vHV3 I4ZmTHUvwaesgKLgzBaeI B9iXCDqxgzxAKNuvM2wSY LaR6y8FwAgBrA3OYrmF0Z bauK5NTCdsTGg EQAckPWToA7guptbj9rpi lrqHlIvROMqGIv5ONp7EV OnlBckVtIxOOY4NhV6HUF 8iUEklN0gjKgl japtqX5iRuu+UAQ4rZDsw ITIGI2bMsvyzIB+PHRkIH N3gGahVGipWEIenK2yXCK oX0f9ZpKhQnX3 SIctL3VleyY7GSEpiBDsS IPjdRSOdM6pqfvvp8oasr trIdDyDJYfHVi0LTe3CBA saWduOiBsZWZ0 JiO6EWA0cXIcfE3jwAfig onfcH1wFvl+QmlydGggRG L0TCn5V8MxDxa7KLXjlZt dIC7rcEEiTLbd Cv1szOyaxQsjPX6yBHJpe oufi602TdXja3uhYEJggA VtKAcmFKR2H44zb6V6PQP zEZUzCYT7kDM7 dI5lsQoykdjybBZqqIums fYwxNbqOZdxFQzkQ744PR NsbYjpMwRvTWv4T3IiNuf 6KEHvaHluXN4y dCKlMAnmKm5pnQqdzUetT B3qSCIacgrci332VzDwy4 bqHZWdkEBgBNbvBCQ2S30 kg9T6FAHfTMNn MGK5oLN4aM5abFltleglb GVmdDsgdmVydGljYWwtYW uiA220WVFykHitNxPsuDs 0A1QaKnr0YLMu vPmwHK5auAOvCKnbSo1zj TfjdTdaME4xVONcjzmfh5 70ShXkc7ytCNEpaPBrRMn uAUY5W74pn4B3 ROXiJSGyWZH4sTI4iQ4ou GlnbjogbGVmdDsgdmVydG qvZGybICfrZ959XIEkjUi nPlBhdGllbnQg DLcmQEc9C7QmYgwhpGU+P I10CDYgXA43vOTdkVDhe2 mjfNe1NsUmCRHqFEB5vRz uMOgbf2LrKGGx K26vuAJkj4V9VIEouBfwq LVjEnGqmLT7fA4fKEebeg sfo1lamdzfPoppm5znkk3 6hN59Z07xNQap ZHRoPSIzMCUiIHZhbGlnb r8hiO1tWd7+BABnlRE3wM X9cI7cUWHaPnR5EOnaK46 9InRvcCIvPjxj p8ogb4eotOc4QyF6KWBzn aBtnFuuLBY2z9FzEd50H9 9sIHdpZHRoPSIyMCUiIHZ imGcgch3ljV6v Ii8+NPGgzVV2oGD4kX1vO zHmXwG9WUpkP646QoVyjA PdIojwR44uK8SapAU+PHR eKuo2RTLppYap AC8jsIYoCBcdVw5mAKR8M yQjUgZuJIxsW0OlVKArjn qecdjxrSL1PNJrURMigT1 1Ik1uoSvnDLFr tHPKpT7tiwexd4gsvgbfR gLjOKDvNKy5NEc5TQJuyO vhRsWrAAX9AkF9CAM9qUE daO2xwBopaqjy kL8qM9MnTBXzamteMh93h L5cOcGuGbV8GCcpQaa+Rk nNY7vfDWjUJLEDFaFCQC6 6HZ98jYVvf9E8 oVK0M5QpIJMkmapurggjt ZL5SYMaRZUmiL48oKLxTP zhUd4ht1M1t438PYKzAOF uwB69Je4liIho LVUfoOLRyB5ohohuo6qhb ospScCdXONqRAj1GCq9RG OfvNpeZtIuSXI1FtR8EEF 9aKFxyC0jwLhi dwhcoX0qZca+MTAvMDIvM My5ZtfzwCI+JVYlZOY3xF htCOttRTQbhX5vNTLuL1w 6NeHwRpL8HRdw Q4ViKZYmothfGr04iJ6sW qFjRhK3QOwfT0HaqwO9LY FurDFmNEgjPJD8O29xc4Q 7JVFtZGZzVJN7 mRZ4fX4auHxmrbtyaLTvr DsgdmVydGljYWwtYWxpZ2 61PWYznYacVpX6IUaaDNM aHH42SY20mSKs t9B0cMR8B1YgVGCdktjob tcbqZH6JIKhQWYjiJ85xO GmAEgaVt2el3V7r405DQN dRWRljE09Li1w gOimXYNzpZPKyQ4sffyhs 5eingebIsTrHHIoKAq8DY d2USJzsWwxCcLvTHT1OoB 1DGM9yMJxsD6z yTmezlragZ4aExw+TWFsZ TwvdGQ+TQPvLZI5aAnzVM zdFLXbsZ6tZLSdY8l5JjY qApK5IIsaJ6Er BJVyblxyTu00yM3jOeYgR pD2GYvcC9HwdpI8EIUybK XiTIfyFMV3U05fg2C6QNI hKMLfGUC9fSS5 qO2dePxvsvnpgRUweDuka cFqvDoqWHygHAkcG308AI VfpYxlAa87cYQxmQboxfM 0D0ZeKuqjxQL+ GA80VVQcTG38rOFifFIcv 7bxzIh5IzCxTHNdUUA0jQ grINlat9CsXCLaZ89geJY sm5A1UUCmzEtg yUFkUiAiyXE7xM3rAOjri glag0fhvuppCrmux8jldw 84gV25M52oPJkzNFOsMQA zMCUiIHZhbGln ii6ktK5jQl8+NUPrnML6e GN3uN6kHeNuYyG7MFveK8 72OhHnfKMnFalxt4hoh3j wmZw1JtCqDQGw elNxqPqhUQZ4a1QtWk27I 29sIHdpZHRoPSIyMCUiIH IfpMdwee7cgW9cDa7+PC9 fy8whpz64fI54 dHI+UZDrGEV1nBitNByuT OOehJ4eGMkfMhE7PKOgKe OwaK72xOBpJSuvVv0gdZz cjPgwSR6kWDRu flqga494PiMhv2lcHYTwc FZyKZdfBQY4T30he7D9ZA YkKGNuTBB4vXP3oN2lhJw nbjogbGVmdDsg fxYuyYaoWMsnWKkuY204E VAvkFrmJsNyoOIxN3gzfg AXQU9nNpiqcMR+PHRkIHN 0eWxlPSdwYWRk yL5mEZByO3o4NmPeVuT4A KnmM7DrviH5DGDezIHsLQ PhsEDAvM1zgkvbw2pzson gIzAwMDAwMDt0 AAq9HXXdsRalOrGgAWA1C bS3RJA2fLTeoT8awXqfdg nysD2lUln+RklOOjwvdGQ +FFDvDIT8kQvh ZEjrNTIxaU9mKWTbX2w0Y nLcVcT1NFzkZ6EratA5OD MvrHPkENJzuERUlU2iohq te1iuwtouKlMg EWYtUJb7VEz0NNGdcJaeO pPvMYC9XsP9STV3wSTvbY 7ttGzqczuvoP8aNxu+TVJ OOjwvdGQ+PHRk ZUE3uClxWYaiFBIfeG3yB UKzW3v9GhFwWzC4AIzzT8 BmetO1LWIzrDUkTUKyvZX FbO0leeydp4kq kqhoRoSrBXIbURl6EBb0H WGutNpzWbPaGAG1QvH9QH U9lUOouS8exXsxkadnmC3 wOyc+TVM1HYB4 QK61GE43E8EdQrcmxBEhs +PHRhYmxlIHdpZHRoPS xmNAHpSjPuoJdfWK1tIv2 yZGVyLWNvbGxh cHNl (more content not included)... Normal [facility] Consent for Treatmenton 06-07 Consent for Treatment [id number] .[id number]:127 Normal [facility] MRI Wrist Arthrogram Lefton 06-21-2022 MRI Wrist Arthrogram Left Exam Date/Time: 06/21/2022 12:07 EDT Reason for Exam: M25.532, [id number] Report IMPRESSION: SUBCHONDRAL SIGNAL ABNORMALITY OF THE DISTAL LUNATE MAY BE CHRONIC OR MAY REPRESENT AVASCULAR NECROSIS. BONE MARROW EDEMA THROUGHOUT THE LUNATE IS NONSPECIFIC AND MAY BE RELATED TO POSSIBLE AVASCULAR NECROSIS OR MAY BE DEGENERATIVE GIVEN DEGENERATIVE SUBCORTICAL CYST FORMATION AND 5 MM FULL-THICKNESS CARTILAGE DEFECT OF THE PROXIMAL LUNATE. LOW-GRADE PARTIAL THICKNESS TEAR OF THE STYLOID COMPONENT OF THE TFCC. EXAM: MRI Wrist Arthrogram Left HISTORY: Pain and limited range of motion. TECHNIQUE: Multiplanar multisequence MRI of the wrist was performed after intra-articular injection of dilute contrast COMPARISON: Wrist radiographs 06/08/2022 FINDINGS: Scapholunate and lunotriquetral ligaments are intact. Low-grade partial thickness tear of the styloid component of the TFCC. Tiny subchondral cyst formation of the ulnar styloid process at the attachment of the styloid component with mild adjacent bone marrow edema. The articular disc and foveal components are intact. Dorsal and volar radioulnar ligaments appear intact. Visualized flexor and extensor tendons are intact. Median nerve is of normal signal and morphology. There is transversely oriented subchondral hypointense T1 signal of the distal lunate measuring approximately 5 mm in transverse dimension with mild bone marrow edema throughout the lunate. There are a few tiny subcortical cysts of the proximal lunate that are degenerative secondary to an overlying 4 mm full-thickness cartilage defect. Ordering Provider: Terrell Martinez FINAL REPORT Dictated: 06/21/2022 12:19 pm Neto Yates DO Signed (Electronic Signature): 06/21/2022 12:19 pm Signed by: Neto Yates DO Transcribed by: RAMÓN Technologist: WAYLON Technical Comments MultiHance Contrast amount in ml's: 1 Normal [facility] RAD - Consent to Procedureon 06-21-2022 RAD - Consent to Procedure [id number]# 1.00CD:127 Normal [facility] RAD - MRI Screening Formon 0 06-21-2022 RAD - MRI Screening Form [id number]#1 .00CD:127 Normal [facility] XR Arthrogram Wrist Lefton 0 06-21-2022 XR Arthrogram Wrist Left Exam Date/Time: 06/21/2022 11:40 EDT Reason for Exam: M25.532, M77.8 Report LEFT HIP MR ARTHROGRAM/GADOLINIUM INJECTION: The skin overlying the left radiocarpal joint was prepped in a sterile fashion and anesthetized with 1% Lidocaine. A 22-gauge needle was inserted into the left radiocarpal joint space. The position of the needle was tested with a 5 cc injection of Isovue-300. This was followed by injection of approximately 4 cc of dilute gadolinium and sterile saline into the hip joint space. The patient tolerated the procedure well without immediate post procedure complications. The patient was sent to MR for further imaging. Number of images: 1. Radiation dose mGy: 0.3; dose area product: 6.52 uGym2 IMPRESSION: LEFT WRIST MRI ARTHROGRAM/GADOLINIUM INJECTION WITHOUT IMMEDIATE COMPLICATION. Ordering Provider: Terrell Martinez FINAL REPORT Dictated: 06/21/2022 3:14 pm Neto Yates DO Signed (Electronic Signature): 06/21/2022 3:14 pm Signed by: Neto Yates DO Transcribed by: RAMÓN Technologist: BETH Technical Comments Radiation Dose: Ka,r in mGy = 0.30 DAP = 6.52 Normal [facility] CMPon 06-16-2022 Albumin [Mass/Vol] 4.5 g/dL Normal 3.3-5.0 [facility] Comment on above: Performed By: #### 2 [id number], [id number] #### [facility] [address] [place] [address] Albumin/Globulin (S) [Mass conc ratio] 1.8 Normal 1.1-2.2 [facility] Comment on above: Performed By: #### 2 329804, [id number] #### [facility] [address] [place] [address] ALP [Catalytic activity/Vol] 80 Int._Unit/L Normal 21-98 [facility] Comment on above: Performed By: #### 2 746418, [id number] #### [facility] [address] [place] [address] ALT No additional P-5'-P [Catalytic activity/Vol] 13 Int._Unit/L Normal 6-46 [facility] Comment on above: Performed By: #### 2 978179, [id number] #### [facility] [address] [place] [address] Anion gap [Moles/Vol] 11 mmol/L Normal 6-16 [facility] Comment on above: Performed By: #### 2 389334, [id number] #### [facility] [address] [place] [address] AST [Catalytic activity/Vol] 22 Int._Unit/L Normal 5-43 [facility] Comment on above: Performed By: #### 2 162748, [id number] #### [facility] [address] [place] [address] Bilirubin [Mass/Vol] 0.7 mg/dL Normal 0.0-1.1 [facility] Comment on above: Performed By: #### 2 663494, [id number] #### [facility] [address] [place] [address] Calcium [Mass/Vol] 9.5 mg/dL Normal 8.9-11.1 [facility] Comment on above: Performed By: #### 2 201093, [id number] #### [facility] [address] [place] [address] Chloride [Moles/Vol] 103 mmol/L Normal 101-111 [facility] Comment on above: Performed By: #### 2 574100, [id number] #### [facility] [address] [place] [address] CO2 [Moles/Vol] 28 mmol/L Normal 21-31 [facility] Comment on above: Performed By: #### 2 521329, [id number] #### [facility] [address] [place] [address] Creatinine [Mass/Vol] 1.2 mg/dL Normal 0.5-1.3 [facility] Comment on above: Performed By: #### 2 259498, [id number] #### [facility] [address] [place] [address] Globulin (S) [Mass/Vol] 2.5 g/dL Normal 1.4-4.0 [facility] Comment on above: Performed By: #### 2 691803, [id number] #### [facility] [address] [place] [address] Glucose [Mass/Vol] 80 mg/dL Normal 55-199 [facility] Comment on above: Result Comment: If t his glucose result represents a fasting glucose, interpretation should refer to the following reference range: 55-99 mg/dL Performed By: #### 2 209300, [id number] #### [facility] [address] [place] [address] Potassium [Moles/Vol] 4.0 mmol/L Normal 3.5-5.3 [facility] Comment on above: Performed By: #### 2 134721, [id number] #### [facility] [address] [place] [address] Protein [Mass/Vol] 7.0 g/dL Normal 6.0-7.8 [facility] Comment on above: Performed By: #### 2 988021, [id number] #### [facility] [address] [place] [address] Sodium [Moles/Vol] 138 mmol/L Normal 135-145 [facility] Comment on above: Performed By: #### 2 645426, 14649812 #### [facility] [address] [place] [address] Urea nitrogen [Mass/Vol] 18 mg/dL Normal 5-21 [facility] Comment on above: Performed By: #### 2 807449, [id number] #### [facility] [address] [place] [address] Urea nitrogen/Creatinine [Mass ratio] 15 No Units Normal 10-20 [facility] Comment on above: Performed By: #### 2 607301, [id number] #### [facility] [address] [place] [address] Consent for Treatmenton 06-07 Consent for Treatment [id number]#1 .00CD:127 Normal [facility] Physician Orderon 06-16-2022 Physician Order [id number]#1 .00CD:127 Normal [facility] eGFRon 06-16-2022 GFR/1.73 sq M.predicted among blacks MDRD (S/P/Bld) [Vol rate/Area] mL/min/{1.73_m2} Normal >=59 [facility] Comment on above: Order Comment: Order added by Discern Expert. Result Comment: eGFR is race adjusted. AA=. Performed By: #### 2 887683, [id number] #### [facility] [address] [place] [address] GFR/1.73 sq M.predicted among non-blacks MDRD (S/P/Bld) [Vol rate/Area] mL/min/{1.73_m2} Normal >=59 [facility] Comment on above: Order Comment: Order added by Discern Expert. Result Comment: Cinetechnician zafar kidney disease could be indicated at eGFR's of less than 60 mL/min/1.73m2. Kidney failure is indicated at less than 15 mL/min/1.73m2. Performed By: #### 2 549402, [id number] #### [facility] [address] [place] [address] Physician Orderon 06-13-2022 Physician Order [id number]#1 .00CD:127 Normal [facility] Consent for Treatmenton 05-11 Consent for Treatment [id number]#1 .00CD:127 Normal [facility] Liss 06-03-2022 ALT No additional P-5'-P [Catalytic activity/Vol] 16 Int._Unit/L Normal 6-46 [facility] Comment on above: Performed By: #### 2 288738, 9249540, 8497536, 6389050, 09067108, 1355321, 7186029 ####[facility] [address] [place] [address] Priyanka 06-03-2022 AST [Catalytic activity/Vol] 21 Int._Unit/L Normal 5-43 [facility] Comment on above: Performed By: #### 2 718482, 9116134, 4977630, 7706512, 66944014, 2445851, 6490558 ####[facility] [address] [address] BMPon 06-03-2022 Anion gap [Moles/Vol] 9 mmol/L Normal 6-16 [facility] Comment on above: Performed By: #### 2 853128, 0161020, 7501260, 4793687, 78222528, 2170753, 0163969 ####[facility] [address] [place] [address] Calcium [Mass/Vol] 9.6 mg/dL Normal 8.9-11.1 [facility] Comment on above: Performed By: #### 2 105837, 6737823, 4343287, 6681355, 12948440, 1666661, 0484320 ####[facility] [address] [place] [address] Chloride [Moles/Vol] 104 mmol/L Normal 101-111 [facility] Comment on above: Performed By: #### 2 111652, 8733260, 6446666, 2289829, 74509848, 7523275, 0919910 ####[facility] [address] [place] [address] CO2 [Moles/Vol] 29 mmol/L Normal 21-31 [facility] Comment on above: Performed By: #### 2 542292, 6652186, 6732448, 2436871, 29885998, 8186275, 8315883 ####[facility] [address] [place] [address] Creatinine [Mass/Vol] 1.3 mg/dL Normal 0.5-1.3 [facility] Comment on above: Performed By: #### 2 275314, 6204977, 9711151, 2461675, 35099738, 9730866, 0342881 ####[facility] [address] [place] [address] Glucose [Mass/Vol] 90 mg/dL Normal 55-199 [facility] Comment on above: Result Comment: If t his glucose result represents a fasting glucose, interpretation should refer to the following reference range: 55-99 mg/dL Performed By: #### 2 118241, 3006029, 1455288, 3433561, 00247177, 9226017, 7037009 ####[facility] [address] [place] [address] Potassium [Moles/Vol] 4.3 mmol/L Normal 3.5-5.3 [facility] Comment on above: Performed By: #### 2 433117, 1723997, 9929438, 9892939, 59326334, 0329848, 3893431 ####[facility] [address] [place] [address] Sodium [Moles/Vol] 138 mmol/L Normal 135-145 [facility] Comment on above: Performed By: #### 2 011554, 5751341, 6563120, 7883270, 79251641, 6960107, 3531395 ####[facility] [address] [place] [address] Urea nitrogen [Mass/Vol] 20 mg/dL Normal 5-21 [facility] Comment on above: Performed By: #### 2 294388, 1074041, 4828642, 9931063, 62836228, 8330796, 8215149 ####[facility] [address] [place] [address] Urea nitrogen/Creatinine [Mass ratio] 15 No Units Normal 10-20 [facility] Comment on above: Performed By: #### 2 189045, 3868672, 6236643, 3964554, 72035293, 2040331, 7023612 ####[facility] [address] [place] [address] CBC w/Indiceson 06-03-2022 Erythrocyte distribution width (RBC) [Ratio] 12.9 % Normal 10.9-14.2 [facility] Comment on above: Performed By: #### 2 643977, 6797043, 7630296, 9419824, 79452400, 1266634, 0151771 #### [facility] [address] [place] [address] Hematocrit (Bld) [Volume fraction] 43.4 % Normal 37.7-49.0 [facility] Comment on above: Performed By: #### 2 047126, 4315310, 8884796, 2735043, 36412572, 2416931, 2442403 #### [facility] [address] [place] [address] Hemoglobin (Bld) [Mass/Vol] 14.6 g/dL Normal 13.5-17.5 [facility] Comment on above: Performed By: #### 2 186936, 0142884, 0570589, 8994467, 69667243, 7654709, 4339860 #### [facility] [address] [place] [address] MCH (RBC) [Entitic mass] 31.7 pg Normal 27.0-34.0 [facility] Comment on above: Performed By: #### 2 457720, 4178901, 6133127, 4733106, 25590135, 7138298, 1336880 #### [facility] [address] [place] [address] MCHC (RBC) [Mass/Vol] 33.5 g/dL Normal 31.4-36.0 [facility] Comment on above: Performed By: #### 2 966871, 8635617, 0876728, 7974073, 82031866, 8819053, 8414302 #### [facility] [address] [place] [address] MCV (RBC) [Entitic vol] 94.7 fL Normal 80.0-100.0 [facility] Comment on above: Performed By: #### 2 180236, 4463475, 2855226, 4257877, 68031552, 2609749, 4348948 #### [facility] [address] [place] [address] Platelet mean volume (Bld) [Entitic vol] 8.1 fL Normal 6.4-10.8 [facility] Comment on above: Performed By: #### 2 369338, 5477042, 4640326, 5631109, 44860532, 3902188, 9445343 #### [facility] [address] [place] [address] Platelets (Bld) [#/Vol] 240.0 E9/L Normal 150.0-500.0 [facility] Comment on above: Performed By: #### 2 669785, 9580458, 8633030, 3450245, 96132675, 6221378, 7026681 #### [facility] [address] [place] [address] RBC (Bld) [#/Vol] 4.6 E12/L Normal 4.3-5.9 [facility] Comment on above: Performed By: #### 2 732162, 4364159, 2932039, 6857816, 20255154, 6158845, 5858038 #### [facility] [address] [place] [address] WBC corrected for nucl RBC Auto (Bld) [#/Vol] 6.3 E9/L Normal 4.0-11.0 [facility] Comment on above: Performed By: #### 2 495928, 2837602, 7267710, 3504482, 84568624, 4048843, 0687139 #### [facility] [address] [place] [address] Lipid Panelon 06-03-2022 Cholesterol [Mass/Vol] 205 mg/dL High 120-200 [facility] Comment on above: Performed By: #### 2 943143, 7895195, 9650375, 3397986, 08204732, 6705935, 0596324 ####[facility] [address] [place] [address] Cholesterol in HDL [Mass/Vol] 59 mg/dL Invalid Interpretation Code [facility] Comment on above: Result Comment: HDL > or equal to 60 mg/dL: Low cardiovascular risk HDL < 40 mg/dL : High cardiovascular risk Performed By: #### 2 360243, 8277736, 0421589, 5007771, 08205166, 0415789, 3064110 ####[facility] [address] [place] [address] Cholesterol in LDL [Mass/Vol] 137 mg/dL High <=129 [facility] Comment on above: Performed By: #### 2 494858, 4958192, 3971126, 1970568, 25880090, 2319686, 9582014 ####[facility] [address] [place] [address] Cholesterol in VLDL [Mass/Vol] 12 mg/dL Normal 7-40 [facility] Comment on above: Performed By: #### 2 697885, 0479568, 5936482, 2264996, 46161522, 7230406, 1722782 ####[facility] [address] [place] [address] Triglyceride [Mass/Vol] 60 mg/dL Normal <=149 [facility] Comment on above: Performed By: #### 2 081830, 5821278, 7551048, 2556837, 98199661, 3818311, 5418653 ####[facility] [address] [place] [address] TSHon 06-03-2022 TSH Qn 1.91 m[IU]/L Normal 0.34-5.60 [facility] Comment on above: Performed By: #### 2 127385, 9769579, 2041890, 0231591, 96543909, 4138100, 5003414 ####[facility] [address] [place] [address] eGFRon 06-03-2022 GFR/1.73 sq M.predicted among blacks MDRD (S/P/Bld) [Vol rate/Area] mL/min/{1.73_m2} Normal >=59 [facility] Comment on above: Order Comment: Order added by Discern Expert. Result Comment: eGFR is race adjusted. AA=. Performed By: #### 2 091372, 1463387, 2337621, 5688326, 97222173, 8210819, 3870046 ####[facility] [address] [place] [address] GFR/1.73 sq M.predicted among non-blacks MDRD (S/P/Bld) [Vol rate/Area] 55 mL/min/1.73 m2 Low >=59 [facility] Comment on above: Order Comment: Order added by Discern Expert. Result Comment: Cinetechnician zafar kidney disease could be indicated at eGFR's of less than 60 mL/min/1.73m2. Kidney failure is indicated at less than 15 mL/min/1.73m2. Performed By: #### 2 748961, 4374589, 2386364, 5459308, 50554820, 3933281, 8984674 ####[facility] [address] [place] [address] Albumin [Mass/volume] in Ser um or PlasmaOrdered By: [facility] on 02-11-2022 Albumin [Mass/Vol] 4.0 g/dL 3.2-5.5 [facility] Cholesterol [Mass/volume] in Serum or PlasmaOrdered By: [facility] on 02-11-2022 Cholesterol [Mass/Vol] 193 mg/dL 140-200 [facility] Comment on above: Chol less than 200 m g/dl low riskChol 201-239 mg/dl borderline riskChol 240 mg/dl and greater high risk Cholesterol in LDL Calc [Mas s/Vol]Ordered By: [facility] on 02-11-2022 Cholesterol in LDL [Mass/Vol] 127 mg/dL 0-100 [facility] Comment on above: LDL ATP III CLASSIFI CATIONLDL less than 100 mg/dL OptimalLDL 100-129 mg/dL Near or above optimalLDL 130-159 mg/dL Borderline highLDL 160-189 mg/dL HighLDL greater than 189 mg/dL Very high Cholesterol in VLDL Calc [Ma ss/Vol]Ordered By: [facility] on 02-11-2022 Cholesterol in VLDL [Mass/Vol] 9 mg/dL [facility] Creatinine and Glomerular fi ltration rate.predicted panel (S/P/Bld)Ordered By: [facility] on 02-11-2022 Creatinine [Mass/Vol] 1.27 mg/dL 0.64-1.27 [facility] Erythrocyte distribution wid th Auto (RBC) [Ratio]Ordered By: [facility] on 02-11-2022 Erythrocyte distribution width (RBC) [Ratio] 12.7 % 12.0-14.8 [facility] Estimated glomerular filtrat ion rate (GFR) non- AmericanOrdered By: [facility] on 02-11-2022 GFR/1.73 sq M.predicted among non-blacks MDRD (S/P/Bld) [Vol rate/Area] 57 mL/Min [facility] Hematocrit Auto (Bld) [Volum e fraction]Ordered By: [facility] on 02-11-2022 Hematocrit (Bld) [Volume fraction] 41.5 % 38.8-50.0 [facility] Hemoglobin [Mass/volume] in BloodOrdered By: [facility] on 02-11-2022 Hemoglobin (Bld) [Mass/Vol] 13.9 g/dL 13.0-17.0 [facility] MCH Auto (RBC) [Entitic mass ]Ordered By: [facility] on 02-11-2022 MCH (RBC) [Entitic mass] 31.9 pg 27.5-35.2 [facility] MCHC Auto (RBC) [Mass/Vol]Or dered By: [facility] on 02-11-2022 MCHC (RBC) [Mass/Vol] 33.6 g/dL 32.5-35.6 [facility] MCV Auto (RBC) [Entitic vol] Ordered By: [facility] on 02-11-2022 MCV (RBC) [Entitic vol] 95.0 fL 83.5-101 [facility] No Panel InformationOrdered By: [facility] on 02-11-2022 Estimated GFR () > 60 mL/Min [facility] Comment on above: GFR estimated refere nce range: According to KDOQI guidelines, <60 ml/min/1.73m2 is sufficient to diagnose a patient with chronic kidney disease. Pharmacy Creatinine Clearance (Chem N/A [facility] Triglycerides Reflex 47 mg/dL 35-149 [facility] Comment on above: TRIG ATP III CLASSIF ICATIONTRIG less than 150 mg/dL NormalTRIG 150-199 mg/dL Borderline highTRIG 200-500 mg/dL High TRIG greater than 500 mg/dL Very highStandard traceable to the Center for Disease Conrtrol and Prevention (CDC) test method. Platelet mean volume Auto (B ld) [Entitic vol]Ordered By: [facility] on 02-11-2022 Platelet mean volume (Bld) [Entitic vol] 8.5 fL 6.6-10.1 [facility] Platelets Auto (Bld) [#/Vol] Ordered By: [facility] on 02-11-2022 Platelets (Bld) [#/Vol] 233 10*3/uL 150-450 [facility] Prostate specific Ag [Mass/v olume] in Serum or PlasmaOrdered By: [facility] on 02-11-2022 Prostate specific Ag [Mass/Vol] 0.610 ng/mL 0.000-4.000 [facility] Protein [Mass/volume] in Ser um or PlasmaOrdered By: [facility] on 02-11-2022 Protein [Mass/Vol] 5.7 g/dL 6.1-7.9 [facility] RBC Auto (Bld) [#/Vol]Ordere d By: [facility] on 02-11-2022 RBC (Bld) [#/Vol] 4.36 10*6/uL 3.90-5.60 [facility] Serum or plasma alanine moon otransferase measurement without P-5'-P (enzymatic activiOrdered By: [facility] on 02-11-2022 ALT No additional P-5'-P [Catalytic activity/Vol] 19 U/L 10-60 [facility] Serum or plasma alkaline tye sphatase measurement (enzymatic activity/volume)Ordered By: [facility] on 02-11-2022 ALP [Catalytic activity/Vol] 68 U/L 32-92 [facility] Serum or plasma anion gap de terminationOrdered By: [facility] on 02-11-2022 Anion gap [Moles/Vol] 10.2 mmol/L 6.0-15.0 [facility] Serum or plasma aspartate am inotransferase measurement (enzymatic activity/volume)Ordered By: [facility] on 02-11-2022 AST [Catalytic activity/Vol] 24 U/L 10-42 [facility] Serum or plasma calcium yajaira urement (mass/volume)Ordered By: [facility] on 02-11-2022 Calcium [Mass/Vol] 9.5 mg/dL 8.2-10.2 [facility] Serum or plasma chloride anupama surement (moles/volume)Ordered By: [facility] on 02-11-2022 Chloride [Moles/Vol] 105 mmol/L 95-114 [facility] Serum or plasma glucose yajaira urement (mass/volume)Ordered By: [facility] on 02-11-2022 Glucose [Mass/Vol] 87 mg/dL 70-100 [facility] Comment on above: ADA recommended refe rence rangeRandom Glucose Reference Range is dependent on time and content of last meal. Glucose of more than 200 mg/dL in a nonstressed, ambulatory subject supports the diagnosis of Diabetes Mellitus. Serum or plasma high density lipoprotein (HDL) cholesterol measurementOrdered By: [facility] on 02-11-2022 Cholesterol in HDL [Mass/Vol] 57 mg/dL 29-71 [facility] Comment on above: HDL CHOL ATP-III CLA SSIFICATION Cardiovascular RiskHDL > or equal to 60 mg/dL LOWHDL < 40 mg/dL HIGH Serum or plasma potassium me asurement (moles/volume)Ordered By: [facility] on 02-11-2022 Potassium [Moles/Vol] 4.1 mmol/L 3.5-5.1 [facility] Serum or plasma sodium measu rement (moles/volume)Ordered By: [facility] on 02-11-2022 Sodium [Moles/Vol] 138 mmol/L 136-146 [facility] Serum or plasma total biliru bin measurement (mass/volume)Ordered By: [facility] on 02-11-2022 Bilirubin [Mass/Vol] 1.0 mg/dL 0.3-1.2 [facility] Serum or plasma total carbon dioxide measurement (moles/volume)Ordered By: [facility] on 02-11-2022 CO2 [Moles/Vol] 26.9 mmol/L 22.0-30.0 [facility] Serum or plasma total choles terol/high density lipoprotein (HDL) cholesterol mass ratOrdered By: [facility] on 02-11-2022 Cholesterol.total/Stephanie sterol in HDL [Mass ratio] 3.4 {ratio} <5.0 [facility] Serum or plasma urea nitroge n measurement (mass/volume)Ordered By: [facility] on 02-11-2022 Urea nitrogen [Mass/Vol] 15 mg/dL 12-30 [facility] WBC Auto (Bld) [#/Vol]Ordere d By: [facility] on 02-11-2022 WBC (Bld) [#/Vol] 4.5 10*3/uL 4.1-10.5 [facility] Covid-19 PCR (CVDTB)on SARS-CoV-2 (COVID-19) RNA LINDA+probe Ql (Unsp spec) Not detected Normal NOT DETECTED [facility] Comment on above: Result Comment: This test is not yet approved or cleared by the [place] FDA. When there are no FDA-approved or cleared tests available, and other criteria are met, FDA can make tests available under an emergency access mechanism called an Emergency Use Authorization (EUA). The EUA for this test is supported by the [place] of Health and Human Service's (HHS's) declaration that circumstances exist to justify the emergency use of in vitro diagnostics for the detection and/or diagnosis of the virus that causes COVID-19. This EUA will remain in effect (meaning this test can be used) for the duration of the COVID-19 declaration justifying emergency of IVDs, unless it is terminated or revoked by FDA (after which the test may no longer be used). When diagnostic testing is negative, the possibility of a false negative should be considered in the context of a patient's recent exposures and the presence of clinical signs and symptoms consistent with SARS-CoV-2. Performed By: #### C VDTB #### [facility] Laboratory [address] [address] [address] Leyda Chaudhry Encounters Encounter Date Encounter Type Care Provider Facility Start: 11-29-2023 End: 11-29-2023 [facility] Start: 03-23-2023 End: 03-23-2023 ambulatory Yoli A Tanya Facility: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 Yoli Tanya Work Phone: [facility] Work Phone: Start: 03-23-2023 End: 03-23-2023 Departed Referred MARINE SUPERINTENDENT-C Yoli Tanya Work Phone: [facility] [place] Work Phone: Start: 12-09-2022 End: 12-09-2022 Emergency department patient visit Bandar Castillo Facility:[facility] Start: 07-10-2022 End: 07-10-2022 ambulatory Terrell Martinez Facility:[facility] Start: 06-30-2022 End: 07-01-2022 ambulatory Terrell Martinez Facility:[facility] Start: 06-21-2022 End: 06-22-2022 ambulatory Terrell Martinez Facility:[facility] Start: 06-16-2022 End: 06-17-2022 ambulatory CLAUDINE SOLORIO Facility:[facility] Start: 06-03-2022 End: 06-04-2022 ambulatory CLAUDINE SOLORIO Facility:[facility] Start: 02-11-2022 End: 02-11-2022 ambulatory NON STAFF [facility] Work Phone: Start: 02-11-2022 End: 02-11-2022 Departed [facility] Work Phone: [facility] Start: 04-12-2021 End: 04-12-2021 ambulatory CLAUDINE DELGADILLO Facility: Plan of Treatment Date Care Activity Detail Author Start: 03-23-2023 Superficial Wound Culture Superficial W[facility] Culture [facility] Payers Date Payer Category Payer Self-pay [id number] 2022 Private Health Insurance [id number] 2022 Private Health Insurance [id number] 1958 Medicare [id number] 1959 Private Health Insurance CLI [id number] 1955 Unknown [id number] 1955 Unknown [id number] 1955 Unknown [id number] 1955 Unknown [id number] 1955 Unknown [id number] 1955 Unknown [id number] 1955 Unknown [id number] [id number] 1955 Unknown [id number] [id number] 1955 Unknown [id number] [id number] Private Health Insurance [facility] [id number] Unknown Unknown [id number] Social History Date Type Detail Facility Tobacco smoking stat [facility] Unknown if ever smoked [facility] Work Phone: Start: 1955 Sex Assigned At Male [facility] History and physical note 07-04-2022 Note Date & Type Note Facility 07-04-2022 Note [id number] [facility] Evaluation note Note Date & Type Note Facility Evaluation note No assessment information availa ble [facility] Work Phone: Summary Purpose Family History No Family History Records FoundNo Family History Records FoundNo Family History Records FoundNo Family History Records FoundNo Family History Records Found Advance Directives No Advanced Directives Records FoundNo Advanced Directives Records FoundNo Advanced Directives Records FoundNo Advanced Directives Records FoundNo Advanced Directives Records Found Chief Complaint and Reason for Visit Chief Complaint complete, psa, a1c Additional Source Comments (unrecognized sect ion and content) No Status Records FoundNo Status Records FoundNo Status Records FoundNo Status Records FoundNo Status Records Found INFORMATION SOURCE (unrecogn ized section and content) DATE CREATED AUTHOR 06/02/2021 [facility] DATE CREATED AUTHOR AUTHOR'S ORGANIZ ATION 08/19/2022 [facility] DATE CREATED AUTHOR AUTHOR'S ORGANIZ ATION 01/01/2023 [facility] DATE CREATED AUTHOR AUTHOR'S ORGANIZ ATION 03/29/2023 [facility] DATE CREATED AUTHOR AUTHOR'S ORGANIZ ATION 12/01/2023 [facility] Care Teams (unrecognized sec tion and content) Team Status: Inactive Member Role Status Dates [facility] Attending Provider Active NON STAFF Primary Care Provider Active Team Status: Active Member Role Status Dates NON STAFF Primary Care Provider Active Team Status: Inactive Member Role Status Dates EMILIO Edwards Attending Provider Active Goals (unrecognized section and content) Goals may be documented in a n alternate sectionGoals may be documented in an alternate section FOR RECORDS PERTAINING TO PATIENTS WHO ARE OR HAVE BEEN ENROLLED IN A CHEMICAL DEPENDENCY/SUBSTANCEABUSE PROGRAM, SOME INFORMATION MAY BE OMITTED. This clinical summary was aggregated from multiple sources. Caution should be exercised in using it in the provision of clinical care. This summary normalizes information from multiple sources, and as a consequence, information in this document may materially change the coding, format and clinical context of patient data. In addition, data may be omitted in some cases. CLINICAL DECISIONS SHOULD BE BASED ON THE PRIMARY CLINICAL RECORDS. [facility] [employer] [facility]. provides no warranty or guarantee of the accuracy or completeness of information in this document.
--- NOTE | 2023-12-06 06:45 | MR_ITS ---
[address] [address] Patient Name: ADONAY MITCHELL MRN: [id number] date: 1955 Sex: M Assigned Patient Location: MRI Current Patient Location: MRI Accession/Order Number: [id number] Exam Date: 12/06/2023 06:52 Report Date: 12/06/2023 14:36 At the request of: SONIA MAYNARD Procedure: MR foot RT wo con EXAM: MR foot RT wo con HISTORY: sesamoid fracture COMPARISON: 12/04/2023 TECHNIQUE: MRI images obtained with multiple sequences. MRI of the right foot without contrast. FINDINGS: Achilles tendon is intact. Plantar fascia is intact. No abnormal signal of the plantar musculature. Extensor and flexor tendons are intact. Anterior talofibular, posterior talofibular, and calcaneofibular ligaments are intact. Deltoid ligament fibers are intact. No significant edema of the sesamoid bones. No significant joint degeneration. Lisfranc ligament is intact. Extensor and flexor tendons are intact. MR/MR foot RT wo con IMPRESSION: 1. Normal alignment of the bones of the foot. 2. No abnormal signal of the intrinsic musculature of the foot. 3. No significant acute bone marrow edema. No definitive evidence for fracture. No acute edema of the sesamoid bones. 4. Other findings as described. Electronically authenticated by: CARLIN LOMELI Date: 12/06/2023 14:36
== END 2023-12-06 06:40 | disposition home or self-care (01) ==
LOC: MRI 06:42
PROVIDERS: Visit Provider Podiatrist Foot & Ankle Surgery
DX: S92.811A Other fracture of right foot, initial encounter for closed fracture (principal)
CPT/HCPCS: 73718

== ENCOUNTER 2024-02-25 14:13 | Outpatient (OUT) | payer MEDICARE, OTHER, SELFPAY ==
--- NOTE | 2024-02-25 14:14 | VEIN_ITS ---
The [address] [address] Patient Name: ADONAY MITCHELL MRN: [id number] date: 1955 Sex: M Assigned Patient Location: Current Patient Location: Accession/Order Number: [id number] Exam Date: 02/25/2024 14:15 Report Date: 02/27/2024 10:11 At the request of: SONIA MAYNARD Procedure: VC SEGMENTAL PRESSURES EXAM: VC SEGMENTAL PRESSURES HISTORY: R09.89 Signs and symptoms involving circulatory system COMPARISON: None. TECHNIQUE: Resting ABIs and segmental limb pressures. FINDINGS: Right resting JESSICA normal at 1.25. Left resting JESSICA normal at 1.21. No pressure gradients were noted. Waveforms are multiphasic. VEIN/VC SEGMENTAL PRESSURES IMPRESSION: Normal resting ABIs. No pressure gradients noted. Electronically authenticated by: Benjy COMBS Date: 02/27/2024 10:11
== END 2024-02-25 14:14 | disposition home or self-care (01) ==
LOC: VC 14:13
PROVIDERS: Visit Provider Podiatrist Foot & Ankle Surgery
DX: R09.89 Other specified symptoms and signs involving the circulatory and respiratory systems (principal)
CPT/HCPCS: 93923

== ENCOUNTER 2024-03-27 08:52 | Outpatient (OUT) | payer MEDICARE, SELFPAY ==
--- NOTE | 2024-03-27 09:00 | ECG_ITS ---
The [facility] Test Date: 2024-03-27 Pat Name: ADONAY MITCHELL Department: Room: - Gender: Male [employer]er [employer]: : 1955 Requested By: SONIA MAYNARD Order Number: [id number] Reading MD: KINGS NERI Measurements Intervals Brady Rate: 63 P: 73 AL: 156 QRS: 38 QRSD: 101 T: 64 QT: 391 QTc: 401 Interpretive Statements SINUS RHYTHM No previous ECG available for comparison Electronically Signed On 03-27-2024 19:43:30 EST by KINGS NERI
--- OUTSIDE RECORDS SUMMARY | 2024-03-27 09:17 | XMS_ITS | CCD ---
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 Name Role Phone CLAUDINE DELGADILLO Attending Unavailable CLAUDINE DELGADILLO Consulting CLAUDINE Huitron Admitting Unavailable [facility] Attending Provider NON STAFF Primary Care Provider UnavailEMILIO Bonilla Attending Provider Yoli Martínez Attending Unavailable Yoli Martínez Admitting Unavailable JUAN TERRAZAS Primary Care Unavailable JUAN TERRAZAS Referring Unavailable NINI, Juan Witt Admitting Unavailable Juan TERRAZAS Attending Bandar Venegas Attending Unavailable SONIA MAYNARD Referring Unavailable SONIA MAYNARD Attending Unavailable NINI, Juan Witt Admitting Unavailable NINI, Juan Witt Attending Unavailable Allergies Allergy Classification Reported Allergen(s) Allergy Type Date of Onset Reaction(s) Facility (2 sources) Codeine; Translations: [codeine] Drug Allergy [facility] Repository Problems Active Problems Problem Classification [...] Test Name Value Interpretation Reference Range Facility Nonvisit Note - PTon 024 Nonvisit Note - PT Nonvisit Note - PT Called and spoke with patient's about the ionto situation and hopeful for approval on 12-28-23. She is going to call the pharmacy to see if the medication is ready and call back to schedule. KK Normal [facility] Nonvisit Note - PTon 024 Nonvisit Note - PT Nonvisit Note - PT chart reviewed with eval prepped for scheduled eval. KK. Normal [facility] CBC w/ Auto Diffon 4 Basophils/100 WBC (Bld) 0.6 % Normal 0.0-2.0 [facility] Comment on above: Performed By: #### 2 [id number] #### [facility] [address] [place] [address] Basophils/Leukocytes Auto (Bld) [Pure # fraction] 0.0 E9/L Normal 0.0-0.2 [facility] Comment on above: Performed By: #### 2 [id number] #### [facility] [address] [place] [address] Eosinophils (Bld) [#/Vol] 0.0 E9/L Normal 0.0-0.5 [facility] Comment on above: Performed By: #### 2 [id number] #### [facility] [address] [place] [address] Eosinophils/100 WBC (Bld) 0.5 % Normal 0.0-8.0 [facility] Comment on above: Performed By: #### 2 [id number] #### [facility] [address] [place] [address] Erythrocyte distribution width (RBC) [Ratio] 12.6 % Normal 10.9-14.2 [facility] Comment on above: Performed By: #### 2 [id number] #### [facility] [address] [place] [address] Hematocrit (Bld) [Volume fraction] 41.6 % Normal 37.7-49.0 [facility] Comment on above: Performed By: #### 2 [id number] #### [facility] [address] [place] [address] Hemoglobin (Bld) [Mass/Vol] 14.7 g/dL Normal 13.5-17.5 [facility] Comment on above: Performed By: #### 2 [id number] #### [facility] [address] [place] [address] Lymphocytes (Bld) [#/Vol] 1.5 E9/L Normal 1.0-4.0 [facility] Comment on above: Performed By: #### 2 548754 #### [facility] [address] [place] [address] Lymphocytes/100 WBC (Bld) 23.2 % Normal 14.0-50.0 [facility] Comment on above: Performed By: #### 2 [id number] #### [facility] [address] [place] [address] MCH (RBC) [Entitic mass] 33.0 pg Normal 27.0-34.0 [facility] Comment on above: Performed By: #### 2 877797 #### [facility] [address] [place] [address] MCHC (RBC) [Mass/Vol] 35.4 g/dL Normal 31.4-36.0 [facility] Comment on above: Performed By: #### 2 [id number] #### [facility] [address] [place] [address] MCV (RBC) [Entitic vol] 93.3 fL Normal 80.0-100.0 [facility] Comment on above: Performed By: #### 2 603406 #### [facility] [address] [place] [address] Monocytes (Bld) [#/Vol] 0.5 E9/L Normal 0.2-1.0 [facility] Comment on above: Performed By: #### 2 774767 #### [facility] [address] [place] [address] Neutrophils (Bld) [#/Vol] 4.2 E9/L Normal 2.0-7.5 [facility] Comment on above: Performed By: #### 2 862947 #### [facility] [address] [place] [address] Neutrophils/100 WBC (Bld) 67.3 % Normal 36.0-75.0 [facility] Comment on above: Performed By: #### 2 748487 #### [facility] [address] [place] [address] Platelet 223.0 E9/L Normal 150.0-500.0 [facility] Comment on above: Performed By: #### 2 355414 #### [facility] [address] [place] [address] Platelet mean volume (Bld) [Entitic vol] 7.7 fL Normal 6.4-10.8 [facility] Comment on above: Performed By: #### 2 258428 #### [facility] [address] [place] [address] RBC (Bld) [#/Vol] 4.5 E12/L Normal 4.3-5.9 [facility] Comment on above: Performed By: #### 2 816092 #### [facility] [address] [place] [address] WBC corrected for nucl RBC Auto (Bld) [#/Vol] 6.3 E9/L Normal 4.0-11.0 [facility] Comment on above: Performed By: #### 2 714641 #### [facility] [address] [place] [address] CMPon 12-05-2023 Albumin [Mass/Vol] 4.5 g/dL Normal 3.3-5.0 [facility] Comment on above: Performed By: #### 2 022472 #### [facility] [address] [place] [address] Albumin/Globulin (S) [Mass conc ratio] 2.3 High 1.1-2.2 [facility] Comment on above: Performed By: #### 2 594186 #### [facility] [address] [place] [address] ALP [Catalytic activity/Vol] 72 Int._Unit/L Normal 21-98 [facility] Comment on above: Performed By: #### 2 163945 #### [facility] [address] [place] [address] ALT No additional P-5'-P [Catalytic activity/Vol] 13 Int._Unit/L Normal 6-46 [facility] Comment on above: Performed By: #### 2 947495 #### [facility] [address] [place] [address] Anion gap [Moles/Vol] 9 mmol/L Normal 6-16 [facility] Comment on above: Performed By: #### 2 921229 #### [facility] [address] [place] [address] AST [Catalytic activity/Vol] 18 Int._Unit/L Normal 5-43 [facility] Comment on above: Performed By: #### 2 842874 #### [facility] [address] [place] [address] Bilirubin [Mass/Vol] 1.0 mg/dL Normal 0.0-1.1 [facility] Comment on above: Performed By: #### 2 553562 #### [facility] [address] [place] [address] Calcium [Mass/Vol] 9.2 mg/dL Normal 8.9-11.1 [facility] Comment on above: Performed By: #### 2 219107 #### [facility] [address] [place] [address] Chloride [Moles/Vol] 105 mmol/L Normal 101-111 [facility] Comment on above: Performed By: #### 2 282227 #### [facility] [address] [place] [address] CO2 [Moles/Vol] 28 mmol/L Normal 21-31 [facility] Comment on above: Performed By: #### 2 704574 #### [facility] [address] [place] [address] Creatinine [Mass/Vol] 1.3 mg/dL Normal 0.5-1.3 [facility] Comment on above: Performed By: #### 2 932573 #### [facility] [address] [place] [address] Globulin (S) [Mass/Vol] 2.0 g/dL Normal 1.4-4.0 [facility] Comment on above: Performed By: #### 2 213355 #### [facility] [address] [place] [address] Glucose [Mass/Vol] 92 mg/dL Normal 55-199 [facility] Comment on above: Performed By: #### 2 563207 #### [facility] [address] [place] [address] Potassium [Moles/Vol] 4.0 mmol/L Normal 3.5-5.3 [facility] Comment on above: Performed By: #### 2 487298 #### [facility] [address] [place] [address] Protein [Mass/Vol] 6.5 g/dL Normal 6.0-7.8 [facility] Comment on above: Performed By: #### 2 847138 #### [facility] [address] [place] [address] Sodium [Moles/Vol] 138 mmol/L Normal 135-145 [facility] Comment on above: Performed By: #### 2 574350 #### [facility] [address] [place] [address] Urea nitrogen [Mass/Vol] 19 mg/dL Normal 5-21 [facility] Comment on above: Performed By: #### 2 071791 #### [facility] [address] [place] [address] Urea nitrogen/Creatinine [Mass ratio] 15 No Units Normal 10-20 [facility] Comment on above: Performed By: #### 2 998618 #### [facility] [address] [place] [address] Lipid Panelon 12-05-2023 Cholesterol [Mass/Vol] 206 mg/dL High 120-200 [facility] Comment on above: Performed By: #### 2 453571 #### [facility] [address] [place] [address] Cholesterol in HDL [Mass/Vol] 52 mg/dL Invalid Interpretation Code [facility] Comment on above: Result Comment: '>= 60 LOW RISK' '<= 40 HIGH RISK' Performed By: #### 2 434225 #### [facility] [address] [place] [address] Cholesterol in LDL [Mass/Vol] 133 mg/dL High <=129 [facility] Comment on above: Performed By: #### 2 256135 #### [facility] [address] [place] [address] Cholesterol in VLDL [Mass/Vol] 19 mg/dL Normal 7-40 [facility] Comment on above: Performed By: #### 2 573030 #### [facility] [address] [place] [address] Triglyceride [Mass/Vol] 97 mg/dL Normal <=149 [facility] Comment on above: Performed By: #### 2 552856 #### [facility] [address] [place] [address] PSA Screen, Totalon 12-05-19 24 Prostate specific Ag [Mass/Vol] 0.8 ng/mL Normal 0.1-3.5 [facility] Comment on above: Result Comment: The concentration of PSA determined by different manufacturers can vary due to differences in assay methods and reagent specificity. Values obtained from different assay methods cannot be used interchangeably. The methodology used for this result was chemiluminescence using [employer] Access [employer]brite[employer] PSA reagent. Performed By: #### 1 [id number] #### [facility] [address] [place] [address] eGFRon 12-05-2023 eGFR 60 mL/min/1.73 m2 Normal >=59 [facility] Comment on above: Order Comment: Order added by Discern Expert. Performed By: #### 1 [id number] #### [facility] [address] [place] [address] XR FOOT RIGHT (MIN 3 VIEWS)o n [...] Odessa Pires MD 11/29/23 Final result Normal [facility] Superficial Wound Cultureon 03-23-2023 Superficial Wound [...] RESISTANT TO ALL B-LACTAM DRUGS. PERFORMED BY: [place] [address] PATHOLOGIST CORPORATE SCHEDULER NOELLE PLASCENCIA M.D. Normal [facility] Comment on above: Performed By: #### C USUP #### [address] ED Note-Physicianon 01-02-20 ED Note-Physician Basic [...] and Complexity of Problems Differential Diagnosis: [] [facility] Data External documents reviewed: [] My EKG [...] Jones In 3 days 12/12/2022 EDT [address] [place] [address]- Business (1) Additional Instructions: Follow-up with Dr. jones for further evaluation of your right index finger pain. CLAUDINE SOLORIO In [address] [place] [address]- [phone] Business (1) Additional Instructions: Patient Education Crush Injury of the Hand, Myyj-xv-Idnt Contusion, Kngk-oh-Nrmf Attestation Patient seen and evaluated by the physician assistant professor of nursing. Attending physician was present in the emergency department and supervised care. This visit was performed by both the physician and an APC. I performed all aspects of the MDM as documented. This report was transcribed using voice recognition software. Every effort was made to ensure accuracy, however, inadvertently computerized battery builder mistakes may be present. Appropriate healthcare PPE w (more content not included)... Normal [facility] Comment on above: Result Comment: Elec tronically Signed By: Michel Jimenez PA-C\.br\Date and Time Signed: 12/09/22 15:01 EDT\.br\Electronically Co-Signed By: Bandar Castillo MD\.br\Date and Time Co-Signed: 01/01/23 02:17 EDT Consent for Treatmenton Consent for Treatment [id number]:[address] [facility] Discharge Instructionson Discharge Instructions [id number] .[id number]:[address] [facility] ED Clinical Summaryon 2022 ED Clinical Summary [facility] [address] [place], [place] [address] ED Clinical Summary Person Information Name: ADONAY MITCHELL Stacy/[facility] Age: 67 Years : 1955 Sex: Male Language: Urdu PCP: CLAUDINE SOLORIO CNP Marital Status: Phone: [phone] MRN: [id number] Visit Id: Visit Reason: Finger pain-swelling; Finger [...] 12/09/2022 11:57:51 12/09/2022 11:57:51 ADDRESS: [place] [phone] PHYS DOC NOTES: MEDICAL INFORMATION: Prescriptions Given: Medications to Continue with No Changes Other Medications acetaminophen-hydroco done ([place] 325 mg-5 mg oral tablet) 1-2 tab(s) Oral q4hr PRN Pain. Duration 7 days.; as needed for pain. Refills: 0. PATIENT EDUCATION INFORMATION: Instructions: Crush Injury of the Hand, Fwex-zm-Dffz; Contusion, Wqqg-ho-Niva Follow up: With: Address: When: Sammy Jones [address] [place], [place] [id number] Business (1) In 3 days 12/12/2022 Comments: Follow-up with Dr. jones for further evaluation of your right index finger pain. With: Address: When: CLAUDINE SOLORIO [address] [facility] [place] [phone] Business (1) In 3 days DIAGNOSIS: Injury of right index finger; Injury of tendon of intrinsic muscle of finger Normal [facility] ED Patient Education Noteon 12-09-2022 ED [...] cannot use soap and water, use hand nurse practitioner adult. ? Change your bandage as told by [...] by your doctor. General instructions ? Take eotp-arv-yhiavci and prescription medicines only as told by [...] given t (more content not included)... Normal [facility] ED Patient Summaryon 023 ED Patient Summary [place] [id number] Patient Discharge Instructions Person Information Name: ADONAY MITCHELL Age: 67 Years Arrival Date: 12/09/2022 10:21:17 Discharge Diagnosis: Injury of right index finger; Injury of tendon of intrinsic muscle of finger Primary Care Physician: CLAUDINE SOLORIO CNP Provider Information Primary Provider: [employer] Lead:Madi The exam and treatment you received in the Emergency Department were for an urgent problem and are not intended as complete care. It is important that you follow up with a doctor, nurse practitioner, or physician?s assistant professor of nursing for ongoing care. If your symptoms become worse or you do not improve as expected and you are unable to reach your usual health care provider, you should return to the Emergency Department. We are available 24 hours a day. ADONAY MITCHELL has been given the following list of patient education materials, prescriptions and follow-up instructions: Follow-up Instructions: With: Address: When: Sammy Jones [address] [place], [place] [id number] Business (1) In 3 days 12/12/2022 Comments: Follow-up with Dr. jones for further evaluation of your right index finger pain. With: Address: When: CLAUDINE SOLORIO [address] [place] [phone] Business (1) In 3 days In the event that this physician does not participate in your insurance network, please consult with your insurance company to find a nearby participating provider. Patient Education Materials: Crush Injury of the Hand, Qddo-yz-Vonh; Contusion, Mwvn-da-Nvku A MESSAGE TO ALL PATIENTS REGARDING OPIOIDS PRESCRIPTION OPIOIDS: WHAT YOU NEED TO KNOW Prescription opioids can be used to help relieve suwteupn-zy-xjjpdf pain and are often prescribed following a [...] and Drug Administration (www.fda.gov/Drugs/Re sourcesForYou). ? Visit www.[employer] (more content not included)... Normal [facility] XR Finger(s) Min 2 Views Rig hton 12-09-2022 XR Finger(s) Min 2 Views Right [...] mGy = na DAP = na Normal [facility] Albumin [Mass/volume] in Ser um or PlasmaOrdered By: [facility] on 02-11-2022 Albumin [Mass/Vol] 4.0 g/dL 3.2-5.5 [facility] Cholesterol [Mass/volume] in Serum or PlasmaOrdered By: [facility] on 02-11-2022 Cholesterol [Mass/Vol] 193 mg/dL 140-200 [facility] Comment on above: Chol less than 200 m g/dl low riskChol 201-239 mg/dl borderline riskChol 240 mg/dl and greater high risk Cholesterol in LDL Calc [Mas s/Vol]Ordered By: [facility] on 02-11-2022 Cholesterol in LDL [Mass/Vol] 127 mg/dL 0-100 [facility] Comment on above: LDL ATP III CLASSIFI CATIONLDL less than 100 mg/dL OptimalLDL 100-129 mg/dL Near or above optimalLDL 130-159 mg/dL Borderline highLDL 160-189 mg/dL HighLDL greater than 189 mg/dL Very high Cholesterol in VLDL Calc [Ma ss/Vol]Ordered By: [facility] on 02-11-2022 Cholesterol in VLDL [Mass/Vol] 9 mg/dL [facility] Creatinine and Glomerular fi ltration rate.predicted panel (S/P/Bld)Ordered By: [facility] on 02-11-2022 Creatinine [Mass/Vol] 1.27 mg/dL 0.64-1.[address] [facility] Erythrocyte distribution wid th Auto (RBC) [Ratio]Ordered By: OUTREACH [facility] on 02-11-2022 Erythrocyte distribution width (RBC) [Ratio] 12.7 % 12.0-14.8 [facility] Estimated glomerular filtrat ion rate (GFR) non- AmericanOrdered By: [facility] on 02-11-2022 GFR/1.73 sq M.predicted among non-blacks MDRD (S/P/Bld) [Vol rate/Area] 57 mL/Min [facility] Hematocrit Auto (Bld) [Volum e fraction]Ordered By: [facility] on 02-11-2022 Hematocrit (Bld) [Volume fraction] 41.5 % 38.8-50.0 [facility] Hemoglobin [Mass/volume] in BloodOrdered By: [facility] on 02-11-2022 Hemoglobin (Bld) [Mass/Vol] 13.9 g/dL 13.0-17.0 [facility] MCH Auto (RBC) [Entitic mass ]Ordered By: [facility] on 02-11-2022 MCH (RBC) [Entitic mass] 31.9 pg 27.5-35.2 [facility] MCHC Auto (RBC) [Mass/Vol]Or dered By: [facility] on 02-11-2022 MCHC (RBC) [Mass/Vol] 33.6 g/dL 32.5-35.[address] [facility] MCV Auto (RBC) [Entitic vol] Ordered By: OUTREACH [facility] on 02-11-2022 MCV (RBC) [Entitic vol] 95.0 fL 83.5-101 [facility] No Panel InformationOrdered By: [facility] on 02-11-2022 Estimated GFR () > 60 mL/Min [facility] Comment on above: GFR estimated refere nce range: According to KDOQI guidelines, <60 ml/min/1.73m2 is sufficient to diagnose a patient with chronic kidney disease. Pharmacy Creatinine Clearance (Chem N/A [facility] Triglycerides Reflex 47 mg/dL 35-149 [facility] Comment on above: TRIG ATP III CLASSIF ICATIONTRIG less than 150 mg/dL NormalTRIG 150-199 mg/dL Borderline highTRIG 200-500 mg/dL High TRIG greater than 500 mg/dL Very highStandard traceable to the Center for Disease Conrtrol and Prevention (CDC) test method. Platelet mean volume Auto (B ld) [Entitic vol]Ordered By: [facility] on 02-11-2022 Platelet mean volume (Bld) [Entitic vol] 8.5 fL 6.6-10.1 [facility] Platelets Auto (Bld) [#/Vol] Ordered By: [facility] on 02-11-2022 Platelets (Bld) [#/Vol] 233 10*3/uL 150-450 [facility] Prostate specific Ag [Mass/v olume] in Serum or PlasmaOrdered By: [facility] on 02-11-2022 Prostate specific Ag [Mass/Vol] 0.610 ng/mL 0.000-4.000 [facility] Protein [Mass/volume] in Ser um or PlasmaOrdered By: [facility] on 02-11-2022 Protein [Mass/Vol] 5.7 g/dL 6.1-7.9 [facility] RBC Auto (Bld) [#/Vol]Ordere d By: [facility] on 02-11-2022 RBC (Bld) [#/Vol] 4.36 10*6/uL 3.90-5.60 [facility] Serum or plasma alanine moon otransferase measurement without P-5'-P (enzymatic activiOrdered By: [facility] on 02-11-2022 ALT No additional P-5'-P [Catalytic activity/Vol] 19 U/L 10-60 [facility] Serum or plasma alkaline tye sphatase measurement (enzymatic activity/volume)Ordered By: [facility] on 02-11-2022 ALP [Catalytic activity/Vol] 68 U/L 32-92 [facility] Serum or plasma anion gap de terminationOrdered By: [facility] on 02-11-2022 Anion gap [Moles/Vol] 10.2 mmol/L 6.0-15.0 [facility] Serum or plasma aspartate am inotransferase measurement (enzymatic activity/volume)Ordered By: [facility] on 02-11-2022 AST [Catalytic activity/Vol] 24 U/L 10-42 [facility] Serum or plasma calcium yajaira urement (mass/volume)Ordered By: [facility] on 02-11-2022 Calcium [Mass/Vol] 9.5 mg/dL 8.2-10.2 [facility] Serum or plasma chloride anupama surement (moles/volume)Ordered By: [facility] on 02-11-2022 Chloride [Moles/Vol] 105 mmol/L 95-114 [facility] Serum or plasma glucose yajaira urement (mass/volume)Ordered By: OUTREACH [facility] on 02-11-2022 Glucose [Mass/Vol] 87 mg/dL 70-100 [facility] Comment on above: ADA recommended refe rence rangeRandom Glucose Reference Range is dependent on time and content of last meal. Glucose of more than 200 mg/dL in a nonstressed, ambulatory subject supports the diagnosis of Diabetes Mellitus. Serum or plasma high density lipoprotein (HDL) cholesterol measurementOrdered By: [facility] on 02-11-2022 Cholesterol in HDL [Mass/Vol] 57 mg/dL 29-71 [facility] Comment on above: HDL CHOL ATP-III CLA SSIFICATION Cardiovascular RiskHDL > or equal to 60 mg/dL LOWHDL < 40 mg/dL HIGH Serum or plasma potassium me asurement (moles/volume)Ordered By: [facility] on 02-11-2022 Potassium [Moles/Vol] 4.1 mmol/L 3.5-5.[address] [facility] Serum or plasma sodium measu rement (moles/volume)Ordered By: OUTREACH [facility] on 02-11-2022 Sodium [Moles/Vol] 138 mmol/L 136-146 [facility] Serum or plasma total biliru bin measurement (mass/volume)Ordered By: [facility] on 02-11-2022 Bilirubin [Mass/Vol] 1.0 mg/dL 0.3-1.2 [facility] Serum or plasma total carbon dioxide measurement (moles/volume)Ordered By: OUTREACH [facility] on 02-11-2022 CO2 [Moles/Vol] 26.9 mmol/L 22.0-30.0 [facility] Serum or plasma total choles terol/high density lipoprotein (HDL) cholesterol mass ratOrdered By: [facility] on 02-11-2022 Cholesterol.total/Stephanie sterol in HDL [Mass ratio] 3.4 {ratio} <5.0 [facility] Serum or plasma urea nitroge n measurement (mass/volume)Ordered By: [facility] on 02-11-2022 Urea nitrogen [Mass/Vol] 15 mg/dL 12-30 [facility] WBC Auto (Bld) [#/Vol]Ordere d By: [facility] on 02-11-2022 WBC (Bld) [#/Vol] 4.5 10*3/uL 4.1-10.5 [facility] Covid-19 PCR (CVDTBH)on SARS-CoV-2 (COVID-19) RNA LINDA+probe Ql (Unsp spec) Not detected Normal NOT DETECTED [facility] Comment on above: Result Comment: This test is not yet approved or cleared by the [place] FDA. When there are no FDA-approved or cleared tests available, and other criteria are met, FDA can make tests available under an emergency access mechanism called an Emergency Use Authorization (EUA). The EUA for this test is supported by the Spearman of Health and Human Service's (HHS's) declaration [...] consistent with SARS-CoV-2. Performed By: #### [facility] #### [facility] [address] [place] [address] Dr. Leyda Chaudhry Encounters Encounter Date Encounter Type Care Provider Facility Start: 12-19-2023 ambulatory SONIA Sue lity:[facility] Start: 12-05-2023 End: 12-05-2023 ambulatory Juan TERRAZAS Facility:[facility] Start: 11-29-2023 End: 11-29-2023 ambulatory JUAN TERRAZAS [facility] Start: 03-23-2023 End: 03-23-2023 ambulatory Yoli A Tanya Facility:[facility] Start: 03-23-2023 End: 03-23-2023 ambulatory OPERATIONS PROGRAM MANAGER-C Yoli Tanya Work Phone: [facility] Work Phone: Start: 03-23-2023 End: 03-23-2023 Departed Referred OPERATIONS PROGRAM MANAGER-C Yoli Tanya Work Phone: [facility] [place] Work Phone: Start: 12-09-2022 End: 12-09-2022 Emergency department patient visit Bandar Castillo Facility:[facility] Start: 06-30-2022 ambulatory Facility:[id number] Start: 02-11-2022 End: 02-11-2022 ambulatory NON STAFF [facility] Work Phone: Start: 02-11-2022 End: 02-11-2022 Departed [facility] Work Phone: [facility] Start: 04-12-2021 End: 04-12-2021 ambulatory CLAUDINE LEONA Facility: Plan of Treatment Date Care Activity Detail Author Start: 03-23-2023 Superficial Wound Culture Superficial Wound Culture [facility] Payers Date Payer Category Payer Self-pay [id number] 2022 Private Health Insurance [id number] 1958 Medicare [id number] 1959 Private Health Insurance CLI [id number] 1955 Unknown [id number] 1955 Unknown [id number] 1955 Unknown [id number] 1955 Unknown [id number] 1955 Unknown [id number] 1955 Unknown [id number] Private Health Insurance [facility] [id number] Unknown Unknown [id number] Social History Date Type Detail Facility Tobacco smoking stat [facility] Unknown if ever smoked [facility] Work Phone: Start: 1955 Sex Assigned At Male F [facility] Evaluation note Note Date & Type Note Facility Evaluation note No assessment information availa ble [facility] Work Phone: Summary Purpose Family [...] content) DATE CREATED AUTHOR 06/02/2021 [facility] DATE CREATED AUTHOR AUTHOR'S ORGANIZ ATION 08/19/2022 [facility] [place] DATE CREATED AUTHOR AUTHOR'S ORGANIZ ATION 03/29/2023 [facility] DATE CREATED AUTHOR AUTHOR'S ORGANIZ ATION 12/01/2023 [facility] DATE CREATED AUTHOR AUTHOR'S ORGANIZ ATION 12/07/2023 [facility] DATE CREATED AUTHOR AUTHOR'S ORGANIZ ATION 12/26/2023 [facility] Care Teams (unrecognized sec tion and [...] BE BASED ON THE PRIMARY CLINICAL RECORDS. [facility] [employer] [facility]. provides no warranty or guarantee of the accuracy or completeness of information in this document.
--- NOTE | 2024-03-27 09:36 | P.GSHP_ITS ---
History of Present Illness History of Present Illness Chief complaint: hallux limitus right foot, sesmoiditis Narrative: Patient wants for presurgical testing. The patient reports he had an injury of hyper extension of his right great toe followed by physical therapy, meloxicam, and activity modification which only offered temporary relief of his symptoms. He denies numbness, tingling, weakness, or any other complaints. Review of Systems ROS Narrative REVIEW OF SYSTEMS: Negative except as stated in HPI, ten or more systems reviewed. Constitutional: No fever, chills, weakness ENT: No sore throat or epistaxis Cardiovascular: No edema, chest pain, palpitations, or activity intolerance Respiratory: No shortness of breath, cough, or wheezing Gastrointestinal: No abdominal pain, constipation, diarrhea, or vomiting Genitourinary: No dysuria or hematuria Neurological: No numbness, tingling, weakness, or headache Psychiatric: No mood changes [facility] Medical History (Updated 03/27/24 @ 09:17 by Scarlet Malone NP) Vertigo ?R42 - Dizziness and giddiness (ICD-10) Arthritis ?M19.90 - Unspecified osteoarthritis, unspecified site (ICD-10) Headache ?R51.9 - Headache, unspecified (ICD-10) Cubital tunnel syndrome ?G56.20 - Lesion of ulnar nerve, unspecified upper limb (ICD-10) Enthesopathy ?M77.9 - Enthesopathy, unspecified (ICD-10) Foot pain ?M79.673 - Pain in unspecified foot (ICD-10) Sesamoiditis ?M25.80 - Other specified joint disorders, unspecified joint (ICD-10) Hallux limitus ?M20.5X9 - Other deformities of toe(s) (acquired), unspecified foot (ICD-10) Surgical History (Updated 03/27/24 @ 09:16 by Scarlet Malone NP) History of colonoscopy ?Z98.890 - Other specified postprocedural states (ICD-10) History of arthroscopy of knee ?Z98.890 - Other specified postprocedural states (ICD-10) S/P cubital tunnel release ?Z98.890 - Other specified postprocedural states (ICD-10) H/O wrist surgery ?Z98.890 - Other specified postprocedural states (ICD-10) History of foot surgery ?Z98.890 - Other specified postprocedural states (ICD-10) Family History (Updated 03/27/24 @ 09:14 by Scarlet Malone NP) Other Family history of cancer Family history of heart disease Social History (Updated 03/27/24 @ 09:12 by Scarlet Malone NP) Within the past year, how often did you have a drink containing alcohol: never Score interpretation: A score less than 4 is consistent with normal alcohol consumption. Smoking status: Never smoker Non-prescribed substance use: denies use Previous occupational history: Retired Highest level of school completed/degree received: high school graduate Meds Home Medications and Allergies Allergies Allergy/AdvReac Type Severity Reaction Status Date / Time codeine Allergy Migraine Verified 03/27/24 09:10 Exam Narrative Exam Narrative: Constitutional: Awake, alert, comfortable, well-appearing, nontoxic, interactive, vital signs as charted Head: Normocephalic, atraumatic Neck: Supple, normal appearance, normal range of motion, no meningeal signs, no lymphadenopathy Respiratory: No respiratory distress, breath sounds clear Cardiovascular: Regular rate and rhythm, strong and regular heart tones Musculoskeletal: Patient ambulates with an antalgic gait, mild valgus deformity right great toe with limited and painful Range of Motion:, Tenderness with palpation of the sesamoids, good capillary refill, sensation intact Skin: No rashes or induration, no lesions, only visible skin inspected Neuro: No neurological deficits, normal sensation Psychiatric: Oriented ?3, normal affect Assessment and Plan Assessment and Plan (1) Hallux limitus: (2) Sesamoiditis: (3) Foot pain: Plan Right first metatarsal phalangeal joint fusion with sesamoidectomy and bone graft as needed scheduled with Dr. Martinez April 14, 2024.
== END 2024-03-27 08:53 | disposition home or self-care (01) ==
LOC: PST 08:54
PROVIDERS: PCP Family Medicine; Visit Provider Podiatrist Foot & Ankle Surgery
DX: Z01.810 Encounter for preprocedural cardiovascular examination (principal); Z01.818 Encounter for other preprocedural examination; M20.5X1 Other deformities of toe(s) (acquired), right foot
CPT/HCPCS: 93005; G0463

== ENCOUNTER 2024-04-14 06:55 | Day surgery (SDC) | payer MEDICARE, SELFPAY ==
[2024-03-27 09:28] VITALS: BP 136/81; PULSE 68; TEMP 36.4; O2SAT 98; BMI 24.1
[2024-04-14] VITALS (10 sets, daily range): BP systolic 121–150; BP diastolic 68–89; PULSE 68–85; TEMP 36.3–36.6; O2SAT 97–100; BMI 23.7
[2024-04-14 07:07] LABS: Basophils Percent Auto 0.7 % (0.2-2.0); Eosinophils Absolute Auto 0.1 10^3/uL (0.0-0.7); Eosinophils Percent Auto 0.9 % (0.9-7.0); Hematocrit 43.4 % (42.0-54.0); Hemoglobin 14.6 g/dL (14.0-18.0); Immature Granulocytes Abs Auto 0.01 10^3/uL (0.00-0.03); Immature Granulocytes Pct Auto 0.2 % (0.0-0.5); Lymphocytes Absolute Auto 1.5 10^3/uL (1.2-3.8); Mean Corpuscular HGB Conc 33.6 g/dL (29.9-35.2); Mean Corpuscular Hemoglobin 32.2 pg (25.9-34.0); Mean Corpuscular Volume 95.8 fL (80.0-94.0); Mean Platelet Volume 9.4 fL (9.5-13.5); Monocytes Absolute Auto 0.5 10^3/uL (0.3-0.8); Monocytes Percent Auto 8.4 % (1.7-12.0); Neutrophils Absolute Auto 3.7 10^3/uL (1.4-6.5); Neutrophils Percent Auto 63.8 % (43.0-75.0); Platelet Count 228 10^3/uL (150-450); Red Blood Count 4.53 10^6/uL (4.70-6.10); Red Cell Distribution Width 11.7 % (11.0-15.0); White Blood Count 5.7 10^3/uL (4.0-11.0)
[2024-04-14 07:26] LABS: Glucometer 92 mg/dL (74-106)
[2024-04-14] MEDS: LACTATED RINGER'S SOLUTION 1,000 ML 50 ML IV ×2 (07:35→09:55)
--- NOTE | 2024-04-14 08:46 | XR_ITS ---
The [address] [address] Patient Name: ADONAY MITCHELL MRN: [id number] date: 1955 Sex: M Assigned Patient [facility] Current Patient Location: [facility] Accession/Order Number: [id number] Exam Date: 04/14/2024 12:15 Report Date: 04/14/2024 14:26 At the request of: SONIA MAYNARD Procedure: XR foot RT min 3V PROCEDURE: XR foot RT min 3V DATE: 04/14/2024 12:15 PM EST COMPARISONS: 12/04/2023 CLINICAL INDICATION: post op 1st mpj fusion; hallux limitus FINDINGS: Since the previous exam there has been fusion of the first metatarsal phalangeal joint. There is a dorsal plate fixed by screws. There is also an oblique pin across the joint space Images are limited by plantar and posterior splint material.. XR/XR foot RT min 3V IMPRESSION: Based on these somewhat limited images there is fusion of the first metatarsal phalangeal joint in good position and alignment with no evidence of hardware failure. Electronically authenticated by: CAROL KIRKLAND Date: 04/14/2024 14:26
--- NOTE | 2024-04-14 08:49 | PM.ORONB ---
Brief Operative Note Date of procedure: 04/14/24 Pre-op diagnosis general: Right hallux limitus and sesamoiditis Post-op diagnosis: same as pre-op Procedure: Procedure performed: Right first metatarsal phalangeal joint fusion with sesamoidectomy Indications for procedure: Patient is a 69-year-old male who has had worsening right foot pain for nearly 6 months predominantly over the sesamoids which is worse with activity. He failed to respond to nonsurgical treatment which included but not limited to immobilization in cam boot and surgical shoe, physical therapy, NSAIDs, shoe and activity modification. In addition to sesamoid pain he had restricted range of motion of the first metatarsal phalangeal joint which was also painful. Due to his failure to respond to nonsurgical care patient wished to proceed with surgical intervention and I recommended the above procedures. Intraoperative findings: Degenerative changes noted within the first metatarsal phalangeal joint with periarticular osteophytes. Full-thickness cartilage erosion noted on the dorsal lateral aspect of the first met head and medial central aspect. Synovitis noted around the capsule and sesamoids. Sesamoids enlarged and hypertrophic. Bone quality within normal limits Procedure in detail: Patient was identified in preoperative holding by myself which time correct side and site were marked and consent was obtained. Regional anesthesia was performed by the anesthesia team and patient was brought back the operating theater placed on table in supine position with a thigh tourniquet. Preoperative antibiotics were started and the right lower extremity was prepped and draped in usual sterile fashion. Formal timeout was performed and the operative extremity was exsanguinated and tourniquet was inflated. Incision was placed parallel to the extensor hallucis longus tendon over the first MPJ. Combination of sharp and blunt dissection gained access to the capsule of the first MPJ which was reflected. Periarticular osteophytes were removed and ligamentous structures were released to allow full access to the first metatarsal phalangeal joint which was then prepped with cup and cone reamers removing cartilage and subchondral bone. Both the proximal phalanx base and first metatarsal head was prepared for fusion in this manner then drilled with a 2.0 mm drill bit. The great toe could now be distracted and isolating the flexor tendons which was released surrounding the medial sesamoid which was then excised and passed the back table. Similarly the lateral sesamoid was released and partially excised due to fragmentation a portion of the lateral sesamoid retracted. Surgical site was irrigated with copious saline. 1 cc of bone allograft was packed into the first metatarsal phalangeal joint which was then pinned with a guidewire through a stab incision placed on the medial aspect of the great toe. Position was checked on the table as well as under fluoroscopy. Then a 3.5 mm cannulated screw was placed noting compression at the first MPJ. The dorsal bone over the first metatarsal and proximal phalanx base was then contoured with a sagittal saw and a 3.5 mm first MPJ plate was temporarily fixated. Position was checked under fluoroscopy. Then locking and nonlocking screws were placed accordingly and additional stability spanning the fusion site was obtained. Surgical site was irrigated with copious saline and the incision was then closed in layers. Tourniquet was deflated with a prompt hyperemic response. A dry sterile dressing and multilayer modified Gross posterior splint was applied. Patient tolerated the procedure and anesthesia well was transported to the recovery room with vital signs stable and brisk capillary refill to the right toes. Postoperative plan: Discharge home under 's care No walking on the right foot but patient may place partial weight to his heel for balance and transfers Keep splint clean dry and intact. Prescriptions were sent to his pharmacy using my office EMR Follow-up next week for hopeful transition to cam boot Implants: Medline 3.5 mm 1st MPJ plate and 3.5 mm cannulated screw Anesthesia: regional and General-LMA Surgeon: Christian Martinez Estimated blood loss (mL): 10 Pathology: other (sesamoids) Condition: stable Disposition: PACU
[2024-04-14] MEDS: CEFAZOLIN SODIUM 2 GM/50 ML D5W PREMIX IV (09:10)
--- NOTE | 2024-04-14 09:30 | PC.NURSE ---
0853 TIME OUT PERFORMED 0854 4 MG ZOFRAN GIVEN IV AND 2 MG OF VERSED WAS ALSO GIVEN 0 856 POPLITEAL AREA CLEANSED WITH CHLORPREP 0857 USING ULTRA SOUND TO LOCATE INJECTION SITE 0858 NEEDLE INSERTED FOR BLOCK 900 POPLITEAL BLOCK COMPLETED
[2024-04-14] MEDS: BUPIVACAINE HCL 0.5% PF 50 MG/10 ML VIAL 8 ML INJ (10:49)
[2024-04-14 11:38] LABS: Glucometer 85 mg/dL (74-106)
== END 2024-04-14 12:38 | disposition home or self-care (01) ==
PROVIDERS: PCP Family Medicine; Visit Provider Podiatrist Foot & Ankle Surgery
PROC: (CPT 28750; principal; 2024-04-14 08:30)
DX: M20.5X1 Other deformities of toe(s) (acquired), right foot (principal); M25.871 Other specified joint disorders, right ankle and foot; M77.51 Other enthesopathy of right foot and ankle
CPT/HCPCS: 28750; 36415; 64445; 73630; 76000; 82948; 85025; 88304; C1713; J0665; J0690; J1100; J1885; J2250; J2405; J2704; J2795; J3010

== ENCOUNTER 2024-05-07 10:19 | Outpatient (OUT) | payer MEDICARE, SELFPAY ==
--- NOTE | 2024-05-07 10:35 | XR_ITS ---
The [address] [address] Patient Name: ADONAY MITCHELL MRN: [id number] date: 1955 Sex: M Assigned Patient Location: [facility] Current Patient Location: Accession/Order Number: [id number] Exam Date: 05/07/2024 10:25 Report Date: 05/09/2024 06:53 At the request of: SONIA MAYNARD Procedure: XR foot RT min 3V PROCEDURE: XR foot RT min 3V HISTORY: Right Foot Pain COMPARISON: XR foot right 04/14/2024 FINDINGS: BONES:Mechanical fusion of the first metatarsophalangeal joint via dorsal plate and screws; no appreciable hardware fracture or loosening. No bone fracture dislocation. SOFT TISSUES:Mild soft tissue swelling. Cast material has been removed. EFFUSION:None visible. OTHER: Negative. XR/XR foot RT min 3V IMPRESSION: 1. Stable surgical changes without is of hardware failure or change in alignment. Electronically authenticated by: RONDA MARINO Date: 05/09/2024 06:53
--- OUTSIDE RECORDS SUMMARY | 2024-05-07 10:36 | XMS_ITS | CCD ---
Author Organization [facility] Care Team Providers Care Hospitality Manager Name Role Phone CLAUDINE DELGADILLO Attending Unavailable CLAUDINE DELGADILLO Consulting Unavailable CLAUDINE DELGADILLO Admitting Unavailable [facility] Attending Provider NON STAFF Primary Care Provider EMILIO Hernandez Attending Provider JUAN TERRAZAS Primary Care Unavailable JUAN TERRAZAS Referring Unavailable Juan TERRAZAS Admitting Unavailable Juan TERRAZAS Attending Bandar Venegas Attending SONIA Santacruz Referring SONIA Santacruz Attending Juan Perez Admitting Juan Perez Attending Sonia Santacruz DPM Attending Provider [phone] Sonia Martinez Attending Sonia Santacruz Admitting Marti Allergies Allergy Classification Reported Allergen(s) Allergy Type Date of Onset Reaction(s) Facility (2 sources) Codeine; Translations: [codeine] Drug Allergy [facility] Repository Problems Active Problems Problem Classification [...] COUGH, UNSPECIFIED; Translations: [COUGH, UNSPECIFIED] Onset: 04-17-2021 Past or Other Problems Problem Classification Problem Date Documented Da te Episodic/Chronic Unclassified (1 source) CONTACT W/AND (SUSP) EXPOS COVID-19; Translations: [CONTACT W/AND (SUSP) EXPOS COVID-19] Onset: 04-12-2021 Results Test Name Value Interpretation Reference Range Facility Pathology study report docum entOrdered By: Yesenia Soriano on 04-16-2024 Pathology study [facility] Other Phone: Ruben 04-14-2024 L - -------- Specimen: [id number] Received: 04/14/24 Status: NIA Cordon Num: [id number] Spec Type: Surgical Subm Dr: Sonia Martinez DPM, MS Tissues: A Bone Fragments - Other than Path Fracture Procedures: HE -------- Age/ Patient Sex Location Account Attending Physician -------- Adonay Mitchell 69/M LABELL [id number] Sonai Martinez DPM, -------- SPEC NUM: [id number] RECD: 04/14/24 STATUS: NIA JAVIER NUM: [id number] MICHAEL: 04/14/[address] [facility] [address]: Sonia Martinez,DPM, MS ENTERED: 04/14/[address]: Madie,Lab SPEC TYPE: Surgical DEPT: [facility]AIS [facility]ILA ENTERED BY: [id number] RECV BY: [id number] ORDERED: HE ORDERED: HE Pathological Diagnosis Right sesamoid bone, resection: Mild degenerative changes. Clinical Information Hallux limitus right foot, sesamoiditis Gross Description Part A is received in formalin labeled with the patients name, date of , and right sesamoid is and ovoid dome portion of bone, 2.5 x 1.6 x 0.7 cm, resected with fibrous tissue, up to 0.5 cm in thickness. The bone is sectioned to reveal juárez-peterson, firm and uniform cut surfaces. Putty Maker sections are submitted in a single cassette after decalcification. (1, , [id number]) CPT Codes 98913 -------- -------- Specimen: [id number] Received: 04/14/24 Status: NIA Cordon Num: [id number] Spec Type: Surgical Subm Dr: Sonia Martinez,DPM, MS Tissues: A Bone Fragments - Other than Path Fracture Procedures: HE -------- Patient: Adonay Mitchell Vasiliy [id number] (Continued) -------- Signed (signature on file) Yesenia Soriano MD 04/16/24 1333 Normal [facility] Nonvisit Note - PTon 024 Nonvisit Note - PT Nonvisit Note - PT Called and spoke with patient's about the ionto situation and hopeful for approval on 12-28-23. She is going to call the pharmacy to see if the medication is ready and call back to schedule. KK Normal [facility] Nonvisit Note - PTon 024 Nonvisit Note - PT Nonvisit Note - PT chart reviewed with eval prepped for scheduled eval. KK. Normal [facility] CBC w/ Auto Diffon 4 Basophils/100 WBC (Bld) 0.6 % Normal 0.0-2.0 [facility] Comment on above: Performed By: #### 2 [id number] #### [facility] [address] [place] [address] Basophils/Leukocytes Auto (Bld) [Pure # fraction] 0.0 E9/L Normal 0.0-0.2 [facility] Comment on above: Performed By: #### 2 [id number] #### [facility] [address] [place] [address] Eosinophils (Bld) [#/Vol] 0.0 E9/L Normal 0.0-0.5 [facility] Comment on above: Performed By: #### 2 [id number] #### [facility] [address] [place] [address] Eosinophils/100 WBC (Bld) 0.5 % Normal 0.0-8.0 [facility] Comment on above: Performed By: #### 2 [id number] #### [facility] [address] [place] [address] Erythrocyte distribution width (RBC) [Ratio] 12.6 % Normal 10.9-14.2 [facility] Comment on above: Performed By: #### 2 925231 #### [facility] [address] [place] [address] Hematocrit (Bld) [Volume fraction] 41.6 % Normal 37.7-49.0 [facility] Comment on above: Performed By: #### 2 [id number] #### [facility] [address] [place] [address] Hemoglobin (Bld) [Mass/Vol] 14.7 g/dL Normal 13.5-17.5 [facility] Comment on above: Performed By: #### 2 631308 #### [facility] [address] [place] [address] Lymphocytes (Bld) [#/Vol] 1.5 E9/L Normal 1.0-4.0 [facility] Comment on above: Performed By: #### 2 [id number] #### [facility] [address] [place] [address] Lymphocytes/100 WBC (Bld) 23.2 % Normal 14.0-50.0 [facility] Comment on above: Performed By: #### 2 158451 #### [facility] [address] [place] [address] MCH (RBC) [Entitic mass] 33.0 pg Normal 27.0-34.0 [facility] Comment on above: Performed By: #### 2 547575 #### [facility] [address] [place] [address] MCHC (RBC) [Mass/Vol] 35.4 g/dL Normal 31.4-36.0 [facility] Comment on above: Performed By: #### 2 373792 #### [facility] [address] [place] [address] MCV (RBC) [Entitic vol] 93.3 fL Normal 80.0-100.0 [facility] Comment on above: Performed By: #### 2 527239 #### [facility] [address] [place] [address] Monocytes (Bld) [#/Vol] 0.5 E9/L Normal 0.2-1.0 [facility] Comment on above: Performed By: #### 2 425274 #### [facility] [address] [place] [address] Neutrophils (Bld) [#/Vol] 4.2 E9/L Normal 2.0-7.5 [facility] Comment on above: Performed By: #### 2 265298 #### [facility] [address] [place] [address] Neutrophils/100 WBC (Bld) 67.3 % Normal 36.0-75.0 [facility] Comment on above: Performed By: #### 2 047073 #### [facility] [address] [place] [address] Platelet 223.0 E9/L Normal 150.0-500.0 [facility] Comment on above: Performed By: #### 2 741651 #### [facility] [address] [place] [address] Platelet mean volume (Bld) [Entitic vol] 7.7 fL Normal 6.4-10.8 [facility] Comment on above: Performed By: #### 2 534324 #### [facility] [address] [place] [address] RBC (Bld) [#/Vol] 4.5 E12/L Normal 4.3-5.9 [facility] Comment on above: Performed By: #### 2 354358 #### [facility] [address] [place] [address] WBC corrected for nucl RBC Auto (Bld) [#/Vol] 6.3 E9/L Normal 4.0-11.0 [facility] Comment on above: Performed By: #### 2 724439 #### [facility] [address] [place] [address] CMPon 12-05-2023 Albumin [Mass/Vol] 4.5 g/dL Normal 3.3-5.0 [facility] Comment on above: Performed By: #### 2 551157 #### [facility] [address] [place] [address] Albumin/Globulin (S) [Mass conc ratio] 2.3 High 1.1-2.2 [facility] Comment on above: Performed By: #### 2 760926 #### [facility] [address] [place] [address] ALP [Catalytic activity/Vol] 72 Int._Unit/L Normal 21-98 [facility] Comment on above: Performed By: #### 2 126778 #### [facility] [address] [place] [address] ALT No additional P-5'-P [Catalytic activity/Vol] 13 Int._Unit/L Normal 6-46 [facility] Comment on above: Performed By: #### 2 371732 #### [facility] [address] [place] [address] Anion gap [Moles/Vol] 9 mmol/L Normal 6-16 [facility] Comment on above: Performed By: #### 2 100640 #### [facility] [address] [place] [address] AST [Catalytic activity/Vol] 18 Int._Unit/L Normal 5-43 [facility] Comment on above: Performed By: #### 2 235834 #### [facility] [address] [place] [address] Bilirubin [Mass/Vol] 1.0 mg/dL Normal 0.0-1.1 [facility] Comment on above: Performed By: #### 2 417627 #### [facility] [address] [place] [address] Calcium [Mass/Vol] 9.2 mg/dL Normal 8.9-11.1 [facility] Comment on above: Performed By: #### 2 193736 #### [facility] [address] [place] [address] Chloride [Moles/Vol] 105 mmol/L Normal 101-111 [facility] Comment on above: Performed By: #### 2 060008 #### [facility] [address] [place] [address] CO2 [Moles/Vol] 28 mmol/L Normal 21-31 [facility] Comment on above: Performed By: #### 2 256642 #### [facility] [address] [place] [address] Creatinine [Mass/Vol] 1.3 mg/dL Normal 0.5-1.3 [facility] Comment on above: Performed By: #### 2 187566 #### [facility] [address] [place] [address] Globulin (S) [Mass/Vol] 2.0 g/dL Normal 1.4-4.0 [facility] Comment on above: Performed By: #### 2 441404 #### [facility] [address] [place] [address] Glucose [Mass/Vol] 92 mg/dL Normal 55-199 [facility] Comment on above: Performed By: #### 2 155880 #### [facility] [address] [place] [address] Potassium [Moles/Vol] 4.0 mmol/L Normal 3.5-5.3 [facility] Comment on above: Performed By: #### 2 062646 #### [facility] [address] [place] [address] Protein [Mass/Vol] 6.5 g/dL Normal 6.0-7.8 [facility] Comment on above: Performed By: #### 2 226375 #### [facility] [address] [place] [address] Sodium [Moles/Vol] 138 mmol/L Normal 135-145 [facility] Comment on above: Performed By: #### 2 081874 #### [facility] [address] [place] [address] Urea nitrogen [Mass/Vol] 19 mg/dL Normal 5-21 [facility] Comment on above: Performed By: #### 2 715160 #### [facility] [address] [place] [address] Urea nitrogen/Creatinine [Mass ratio] 15 No Units Normal 10-20 [facility] Comment on above: Performed By: #### 2 532398 #### [facility] [address] [place] [address] Lipid Panelon 12-05-2023 Cholesterol [Mass/Vol] 206 mg/dL High 120-200 [facility] Comment on above: Performed By: #### 2 012743 #### [facility] [address] [place] [address] Cholesterol in HDL [Mass/Vol] 52 mg/dL Invalid Interpretation Code [facility] Comment on above: Result Comment: '>= 60 LOW RISK' '<= 40 HIGH RISK' Performed By: #### 2 294521 #### [facility] [address] [place] [address] Cholesterol in LDL [Mass/Vol] 133 mg/dL High <=129 [facility] Comment on above: Performed By: #### 2 572587 #### [facility] [address] [place] [address] Cholesterol in VLDL [Mass/Vol] 19 mg/dL Normal 7-40 [facility] Comment on above: Performed By: #### 2 990454 #### [facility] [address] [place] [address] Triglyceride [Mass/Vol] 97 mg/dL Normal <=149 [facility] Comment on above: Performed By: #### 2 474991 #### [facility] [address] [place] [address] PSA Screen, Totalon 12-05-19 24 Prostate specific Ag [Mass/Vol] 0.8 ng/mL Normal 0.1-3.5 [facility] Comment on above: Result Comment: The concentration of PSA determined by different manufacturers can vary due to differences in assay methods and reagent specificity. Values obtained from different assay methods cannot be used interchangeably. The methodology used for this result was chemiluminescence using [employer]'s Access Hybritech PSA reagent. Performed By: #### 1 [id number] #### [facility] [address] [place] [address] eGFRon 12-05-2023 eGFR 60 mL/min/1.73 m2 Normal >=59 [facility] Comment on above: Order Comment: Order added by Discern Expert. Performed By: #### 1 [id number] #### [facility] [address] [place] [address] XR FOOT RIGHT (MIN 3 VIEWS)o n [...] Odessa Pires MD 11/29/23 Final result Normal [facility] ED Note-Physicianon 01-02-20 ED Note-Physician Basic Information [...] and Complexity of Problems Differential Diagnosis: [] [facility] Data External documents reviewed: [] My EKG [...] Jones In 3 days 12/12/2022 EDT [address] [place] [address]- Business (1) Additional Instructions: Follow-up with Dr. jones for further evaluation of your right index finger pain. CLAUDINE SOLORIO In [address] [place] [phone] Business (1) Additional Instructions: Patient Education Crush Injury of the Hand, Rlot-hv-Hayz Contusion, Kurm-py-Bael Attestation Patient seen and evaluated by the physician photographer's assistant. Attending physician was present in the emergency department and supervised care. This visit was performed by both the physician and an APC. I performed all aspects of the MDM as documented. This report was transcribed using voice recognition software. Every effort was made to ensure accuracy, however, inadvertently computerized export freight manager mistakes may be present. Appropriate healthcare PPE w (more content not included)... Normal [facility] Comment on above: Result Comment: Elec tronically Signed By: Michel Jimenez PA-C\.br\Date and Time Signed: 12/09/22 15:01 EDT\.br\Electronically Co-Signed By: Bandar Castillo MD\.br\Date and Time Co-Signed: 01/01/23 02:17 EDT Consent for Treatmenton Consent for Treatment [id number] .00CD:127 [facility] Discharge Instructionson Discharge Instructions [id number] .[id number]:127 [facility] ED Clinical Summaryon 2022 ED Clinical Summary [place] [id number] ED Clinical Summary Person Information Name: ADONAY MITCHELL Stacy/[facility] Age: 67 Years : 1955 Sex: Male Language: Albanian PCP: CLAUDINE SOLORIO CNP Marital Status: Phone: [phone] Visit Id: Visit Reason: Finger pain-swelling; Finger [...] 12/09/2022 11:57:51 12/09/2022 11:57:51 12/09/2022 11:57:51 ADDRESS: [address] [facility] [id number] [facility] DOC NOTES: MEDICAL INFORMATION: Prescriptions Given: Medications to Continue with No Changes Other Medications acetaminophen-hydroco done ([place] 325 mg-5 mg oral tablet) 1-2 tab(s) Oral q4hr PRN Pain. Duration 7 days.; as needed for pain. Refills: 0. PATIENT EDUCATION INFORMATION: Instructions: Crush Injury of the Hand, Yhtd-ls-Dqrq; Contusion, Yeco-og-Lshm Follow up: With: Address: When: Sammy Jones [address] [place] [address] Business (1) In 3 days 12/12/2022 Comments: Follow-up with Dr. jones for further evaluation of your right index finger pain. With: Address: When: CLAUDINE SOLORIO [address] [place] [phone] Business (1) In 3 days DIAGNOSIS: Injury of right index finger; Injury of tendon of intrinsic muscle of finger Normal [facility] ED Patient Education Noteon 12-09-2022 ED [...] cannot use soap and water, use hand mail carrier technician. ? Change your bandage as told by [...] by your doctor. General instructions ? Take rjnx-iqu-xnefoag and prescription medicines only as told by [...] given t (more content not included)... Normal [facility] ED Patient Summaryon 023 ED Patient Summary [place] [id number] Patient Discharge Instructions Person Information Name: TAYLERBrooke ADONAY Amanda Age: 67 Years Arrival Date: 12/09/2022 10:21:17 Discharge Diagnosis: Injury of right index finger; Injury of tendon of intrinsic muscle of finger Primary Care Physician: CLAUDINE SOLORIO CNP Provider Information Primary Provider: Advanced Crown [employer] Machine Set Up Mechanic:None The exam and treatment you received in the Emergency Department were for an urgent problem and are not intended as complete care. It is important that you follow up with a doctor, nurse practitioner, or physician?s photographer's assistant for ongoing care. If your symptoms [...] Follow-up Instructions: With: Address: When: Sammy Jones [address] [place] [address] Polar (1) In 3 days 12/12/2022 Comments: Follow-up with Dr. jones for further evaluation of your right index finger pain. With: Address: When: CLAUDINE SOLORIO [address] [place] [phone] Polar (1) In 3 days In the event that this physician does not participate in your insurance network, please consult with your insurance company to find a nearby participating provider. Patient Education Materials: Crush Injury of the Hand, Xkny-nf-Baad; Contusion, Kwvk-vi-Dgkb A MESSAGE TO ALL PATIENTS REGARDING OPIOIDS PRESCRIPTION OPIOIDS: WHAT YOU NEED TO KNOW Prescription opioids can be used to help relieve jsrcwkwo-cx-tlpkuc pain and are often prescribed following a [...] and Drug Administration (www.fda.gov/Drugs/Re sourcesForYou). ? Visit [email or web address] (more content not included)... Normal [facility] XR Finger(s) Min 2 Views [facility] 12-09-2022 XR Finger(s) Min 2 Views Right [...] mGy = na DAP = na Normal [facility] Albumin [Mass/volume] in Ser um or PlasmaOrdered By: OUTREACH [facility] on 02-11-2022 Albumin [Mass/Vol] 4.0 g/dL 3.2-5.5 [facility] Cholesterol [Mass/volume] in Serum or PlasmaOrdered By: OUTREACH [facility] on 02-11-2022 Cholesterol [Mass/Vol] 193 mg/dL 140-200 [facility] Comment on above: Chol less than 200 m g/dl low riskChol 201-239 mg/dl borderline riskChol 240 mg/dl and greater high risk Cholesterol in LDL Calc [Mas s/Vol]Ordered By: [facility] on 02-11-2022 Cholesterol in LDL [Mass/Vol] 127 mg/dL 0-100 [facility] Comment on above: LDL ATP III CLASSIFI CATIONLDL less than 100 mg/dL OptimalLDL 100-129 mg/dL Near or above optimalLDL 130-159 mg/dL Borderline highLDL 160-189 mg/dL HighLDL greater than 189 mg/dL Very high Cholesterol in VLDL Calc [Ma ss/Vol]Ordered By: OUTREACH [facility] on 02-11-2022 Cholesterol in VLDL [Mass/Vol] 9 mg/dL [facility] Creatinine and Glomerular fi ltration rate.predicted panel (S/P/Bld)Ordered By: OUTREACH [facility] on 02-11-2022 Creatinine [Mass/Vol] 1.27 mg/dL 0.64-1.27 [facility] Erythrocyte distribution wid th Auto (RBC) [Ratio]Ordered By: [facility] on 02-11-2022 Erythrocyte distribution width (RBC) [Ratio] 12.7 % 12.0-14.8 [facility] Estimated glomerular filtrat ion rate (GFR) non- AmericanOrdered By: OUTREACH [facility] on 02-11-2022 GFR/1.73 sq M.predicted among non-blacks MDRD (S/P/Bld) [Vol rate/Area] 57 mL/Min [facility] Hematocrit Auto (Bld) [Volum e fraction]Ordered By: [facility] on 02-11-2022 Hematocrit (Bld) [Volume fraction] 41.5 % 38.8-50.0 [facility] Hemoglobin [Mass/volume] in BloodOrdered By: [facility] on 02-11-2022 Hemoglobin (Bld) [Mass/Vol] 13.9 g/dL 13.0-17.0 [facility] MCH Auto (RBC) [Entitic mass ]Ordered By: [facility] on 02-11-2022 MCH (RBC) [Entitic mass] 31.9 pg 27.5-35.2 [facility] MCHC Auto (RBC) [Mass/Vol]Or dered By: [facility] on 02-11-2022 MCHC (RBC) [Mass/Vol] 33.6 g/dL 32.5-35.6 [facility] MCV Auto (RBC) [Entitic vol] Ordered By: [facility] on 02-11-2022 MCV (RBC) [Entitic vol] 95.0 fL 83.5-101 F [facility] No Panel InformationOrdered By: [facility] on 02-11-2022 Estimated GFR () > 60 mL/Min [facility] Comment on above: GFR estimated refere nce range: According to KDOQI guidelines, <60 ml/min/1.73m2 is sufficient to diagnose a patient with chronic kidney disease. Pharmacy Creatinine Clearance (Chem N/A [facility] Triglycerides Reflex 47 mg/dL 35-149 [facility] Comment on above: TRIG ATP III CLASSIF ICATIONTRIG less than 150 mg/dL NormalTRIG 150-199 mg/dL Borderline highTRIG 200-500 mg/dL High TRIG greater than 500 mg/dL Very highStandard traceable to the Center for Disease Conrtrol and Prevention (CDC) test method. Platelet mean volume Auto (B ld) [Entitic vol]Ordered By: [facility] on 02-11-2022 Platelet mean volume (Bld) [Entitic vol] 8.5 fL 6.6-10.1 [facility] Platelets Auto (Bld) [#/Vol] Ordered By: [facility] on 02-11-2022 Platelets (Bld) [#/Vol] 233 10*3/uL 150-450 [facility] Prostate specific Ag [Mass/v olume] in Serum or PlasmaOrdered By: [facility] on 02-11-2022 Prostate specific Ag [Mass/Vol] 0.610 ng/mL 0.000-4.000 [facility] Protein [Mass/volume] in Ser um or PlasmaOrdered By: [facility] on 02-11-2022 Protein [Mass/Vol] 5.7 g/dL 6.1-7.9 [facility] RBC Auto (Bld) [#/Vol]Ordere d By: [facility] on 02-11-2022 RBC (Bld) [#/Vol] 4.36 10*6/uL 3.90-5.60 [facility] Serum or plasma alanine moon otransferase measurement without P-5'-P (enzymatic activiOrdered By: [facility] on 02-11-2022 ALT No additional P-5'-P [Catalytic activity/Vol] 19 U/L 10-60 [facility] Serum or plasma alkaline tye sphatase measurement (enzymatic activity/volume)Ordered By: [facility] on 02-11-2022 ALP [Catalytic activity/Vol] 68 U/L 32-92 [facility] Serum or plasma anion gap de terminationOrdered By: [facility] on 02-11-2022 Anion gap [Moles/Vol] 10.2 mmol/L 6.0-15.0 [facility] Serum or plasma aspartate am inotransferase measurement (enzymatic activity/volume)Ordered By: [facility] on 02-11-2022 AST [Catalytic activity/Vol] 24 U/L 10-42 [facility] Serum or plasma calcium yajaira urement (mass/volume)Ordered By: [facility] on 02-11-2022 Calcium [Mass/Vol] 9.5 mg/dL 8.2-10.2 [facility] Serum or plasma chloride anupama surement (moles/volume)Ordered By: [facility] on 02-11-2022 Chloride [Moles/Vol] 105 mmol/L 95-114 [facility] Serum or plasma glucose yajaira urement (mass/volume)Ordered By: [facility] on 02-11-2022 Glucose [Mass/Vol] 87 mg/dL 70-100 [facility] Comment on above: ADA recommended refe rence rangeRandom Glucose Reference Range is dependent on time and content of last meal. Glucose of more than 200 mg/dL in a nonstressed, ambulatory subject supports the diagnosis of Diabetes Mellitus. Serum or plasma high density lipoprotein (HDL) cholesterol measurementOrdered By: [facility] on 02-11-2022 Cholesterol in HDL [Mass/Vol] 57 mg/dL 29- [facility] Comment on above: HDL CHOL ATP-III CLA SSIFICATION Cardiovascular RiskHDL > or equal to 60 mg/dL LOWHDL < 40 mg/dL HIGH Serum or plasma potassium me asurement (moles/volume)Or[facility] By: [facility] on 02-11-2022 Potassium [Moles/Vol] 4.1 mmol/L 3.5-5.1 [facility] Serum or plasma sodium measu rement (moles/volume)Ordered By: [facility] on 02-11-2022 Sodium [Moles/Vol] 138 mmol/L 136-146 [facility] Serum or plasma total biliru bin measurement (mass/volume)Ordered By: [facility] on 02-11-2022 Bilirubin [Mass/Vol] 1.0 mg/dL 0.3-1.2 [facility] Serum or plasma total carbon dioxide measurement (moles/volume)Ordered By: [facility] on 02-11-2022 CO2 [Moles/Vol] 26.9 mmol/L 22.0-30.0 [facility] Serum or plasma total choles terol/high density lipoprotein (HDL) cholesterol mass ratOrdered By: [facility] on 02-11-2022 Cholesterol.total/Stephanie sterol in HDL [Mass ratio] 3.4 {ratio} <5.0 [facility] Serum or plasma urea nitroge n measurement (mass/volume)Ordered By: [facility] on 02-11-2022 Urea nitrogen [Mass/Vol] 15 mg/dL 12-30 [facility] WBC Auto (Bld) [#/Vol]Ordere d By: [facility] on 02-11-2022 WBC (Bld) [#/Vol] 4.5 10*3/uL 4.1-10.5 [facility] Covid-19 PCR (CVDTBH)on SARS-CoV-2 (COVID-19) RNA LINDA+probe Ql (Unsp spec) Not detected Normal NOT DETECTED [facility] Comment on above: Result Comment: This test is not yet approved or cleared by the [place] FDA. When there are no FDA-approved or cleared tests available, and other criteria are met, FDA can make tests available under an emergency access mechanism called an Emergency Use Authorization (EUA). The EUA for this test is supported by the [employer] Intern of Health and Human Service's (HHS's) declaration [...] consistent with SARS-CoV-2. Performed By: #### [facility] #### [facility] [address] [address] [address] Leyda Chaudhry Encounters Encounter Date Encounter Type Care Provider Facility Start: 04-14-2024 End: 04-14-2024 ambulatory Sonia Martinez [facility] Work Phone: Start: 04-14-2024 End: 04-14-2024 Departed Referred Sonia Martinez DPM Work Phone: [facility] Start: 12-19-2023 End: 03-31-2024 ambulatory SONIA MARTINEZ Facility:[facility] Start: 12-05-2023 End: 12-05-2023 ambulatory Juan TERRAZAS Facility:[facility] Start: 11-29-2023 End: 11-29-2023 ambulatory JUAN TERRAZAS [facility] Start: 03-23-2023 End: 03-23-2023 ambulatory [employer]ING[employer] MACHINE OPERATOR-C Yoli Martínez Work Phone: [facility] Work Phone: Start: 03-23-2023 End: 03-23-2023 Departed Referred HINGING MACHINE OPERATOR-C Yolidae Martínez Work Phone: [facility] [place] Work Phone: Start: 12-09-2022 End: 12-09-2022 Emergency department patient visit Bandar Castillo Facility:[facility] Start: 06-30-2022 ambulatory Facility:1 [id number] Start: 02-11-2022 End: 02-11-2022 ambulatory NON STAFF [facility] Work Phone: Start: 02-11-2022 End: 02-11-2022 Departed Referred [facility] Work Phone: [facility] Start: 04-12-2021 End: 04-12-2021 ambulatory CLAUDINE DELGADILLO Facility: Plan of Treatment Date Care Activity Detail Author Start: 03-23-2023 Superficial Wound Culture Superficial Wound Culture [facility] Payers Date Payer Category Payer Self-pay [id number] 2022 Private Health Insurance [id number] 1958 Medicare [id number] 1958 Private Health Insurance CLI [id number] 1955 Unknown [id number] 1955 Unknown [id number] 1955 Unknown [id number] 1955 Unknown [id number] 1955 Unknown [id number] 1955 Unknown [id number] Private Health Insurance [facility] [id number] Unknown Unknown [id number] Social History Date Type Detail Facility [facility] if ever [facility] Work Phone: Start: 1955 Sex Assigned At Male F [facility] if ever smoked [facility] Work Phone: Start: 04-15-2024 Sex Male (finding) [facility] Evaluation note Note Date & Type Note Facility Evaluation note No assessment information availa ble [facility] Work Phone: Summary Purpose Family History No Family History Records FoundNo Family History Records FoundNo Family History Records FoundNo Family History Records FoundNo Family History Records FoundNo Family History Records FoundNo Family History Records FoundNo Family History Records FoundNo Family History Records FoundNo Family History Records Found Advance Directives No Advanced Directives Records Found Advance Directive Response Recorded Date/ Time Advance Directives No March 1:54pm Chief Complaint and Reason for Visit Chief Complaint complete, psa, a1c Chief Complaint Admit Date Unknown April 14, 2024 10 :33am Additional Source Comments (unrecognized sect ion and content) No Status Records FoundNo Status Records FoundNo Status Records FoundNo Status Records FoundNo Status Records FoundNo Status Records FoundNo Status Records FoundNo Status Records FoundNo Status Records FoundNo Status Records Found INFORMATION SOURCE (unrecogn ized section and content) DATE CREATED AUTHOR 06/02/2021 [facility] DATE CREATED AUTHOR AUTHOR'S ORGANIZ ATION 08/19/2022 [facility] DATE CREATED AUTHOR AUTHOR'S ORGANIZ ATION 12/01/2023 [facility] DATE CREATED AUTHOR AUTHOR'S ORGANIZ ATION [facility]20[facility] DATE CREATED AUTHOR AUTHOR'S ORGANIZ ATION 04/02/2024 [facility] DATE CREATED AUTHOR AUTHOR'S ORGANIZ ATION 04/20/2024 [facility] Care Teams (unrecognized sec tion and content) Team Status: Inactive Member Role Status Dates [facility] Attending Provider Active NON STAFF Primary Care Provider Active Team Status: Active Member Role Status Dates NON STAFF Primary Care Provider Active Team Status: Inactive Member Role Status Dates EMILIO Edwards Attending Provider Active Team Status: Inactive Member Role Status Dates Sonia Martinez DPM [place] Attending Provider Active Start: April 14, 2024 End: April 14, 2024 Goals (unrecognized section and content) Goals may be documented in a n alternate sectionGoals may be documented in an alternate sectionGoals may be documented in an [...] BE BASED ON THE PRIMARY CLINICAL RECORDS. [facility]. provides no warranty or guarantee of the accuracy or completeness of information in this document.
== END 2024-05-07 10:20 | disposition home or self-care (01) ==
LOC: RAD 10:19
PROVIDERS: PCP Family Medicine; Visit Provider Podiatrist Foot & Ankle Surgery
DX: M79.671 Pain in right foot (principal); M24.674 Ankylosis, right foot
CPT/HCPCS: 73630

== ENCOUNTER 2024-05-27 11:07 | Outpatient (OUT) | payer MEDICARE, SELFPAY ==
--- NOTE | 2024-05-27 | XR_ITS ---
The [address] [address] Patient Name: ADONAY MITCHELL MRN: [id number] date: 1955 Sex: M Assigned Patient Location: [facility] Current Patient Location: [facility] Accession/Order Number: [id number] Exam Date: 05/28/2024 22:35 Report Date: 05/28/2024 22:37 At the request of: SONIA MAYNARD DPM Procedure: XR foot RT min 3V XR foot RT min 3V 05/27/2024 11:17 AM SIGNS AND SYMPTOMS: ^RIGHT FOOT PAIN, postop x3 weeks PROTOCOL: Frontal, lateral, and oblique radiographs of the right foot COMPARISON: 05/07/2024 FINDINGS: There is plate and screw fixation across the first metatarsophalangeal joint space. There is no hardware complication or change in alignment. There is diffuse soft tissue swelling similar to the prior study. The joint spaces are otherwise preserved. XR/XR foot RT min 3V IMPRESSION: Unchanged hardware fixation of the first metatarsophalangeal joint. Similar diffuse soft tissue swelling. Impression dictated by: Po Riggs M.D.05/28/2024 10:37 PM Dictation Location: [place] [address] Electronically authenticated by: [id number] Y Date: 05/28/2024 22:37
== END 2024-05-27 11:08 | disposition home or self-care (01) ==
LOC: RAD 11:07
PROVIDERS: PCP Family Medicine; Visit Provider Podiatrist Foot & Ankle Surgery
DX: M79.671 Pain in right foot (principal); Z98.890 Other specified postprocedural states
CPT/HCPCS: 73630

== ENCOUNTER 2024-06-10 10:49 | Outpatient (OUT) | payer MEDICARE, SELFPAY ==
--- NOTE | 2024-06-10 10:55 | XR_ITS ---
The [address] [address] Patient Name: ADONAY MITCHELL MRN: [id number] date: 1955 Sex: M Assigned Patient Location: [facility] Current Patient Location: [facility] Accession/Order Number: [id number] Exam Date: 06/10/2024 15:20 Report Date: 06/10/2024 15:22 At the request of: SONIA MAYNARD DPM Procedure: XR foot RT min 3V RIGHT FOOT - 3 views CLINICAL DATA: Foot pain, erythema and swelling at the first toe at the incision site. Recent surgery. COMPARISON: 05/27/2024 AP, lateral and oblique views were obtained. There is redemonstration of a dorsal plate and multiple screws at the first metatarsal phalangeal joint. The hardware appears intact and unchanged from the prior. There is no developing fracture or dislocation. Mild soft tissue swelling is seen at the surgery site. There is no subcutaneous air or radiopaque foreign bodies. XR/XR foot RT min 3V IMPRESSION: STABLE POSTOPERATIVE CHANGES AT THE FIRST TOE. Impression dictated by: Chrystal Denise M.D.06/10/2024 3:22 PM Dictation Location: [employer] Electronically authenticated by: [id number] Y Date: 06/10/2024 15:22
--- OUTSIDE RECORDS SUMMARY | 2024-06-10 11:04 | XMS_ITS | CCD ---
Author Organization [facility] Care Team Providers Care Rn Heart Name Role Phone CLAUDINE DELGADILLO Attending Unavailable CLAUDINE DELGADILLO Consulting Unavailable CLAUDINE DELGADILLO Admitting Unavailable [facility], [facility] Attending Provider NON STAFF Primary Care Provider EMILIO Hernandez Attending Provider JUAN TERRAZAS Primary Care Unavailable JUAN TERRAZAS Referring Unavailable Juan TERRAZAS Admitting Unavailable Juan TERRAZAS Attending Bandar Venegas Attending SONIA Santacruz Referring SONIA Santacruz Attending Unavailable Juan TERRAZAS Admitting Juan Perez Attending Sonia Santacruz DPM Attending Provider Sonia Martinez Attending Sonia Santacruz Admitting Marti Allergies Allergy Classification Reported Allergen(s) Allergy Type Date of Onset Reaction(s) Facility (2 sources) Codeine; Translations: [codeine] Drug Allergy [facility] Repository Problems Active Problems Problem Classification [...] By: Yesenia Soriano on 04-16-2024 Pathology study [facility] Other Phone: Ruben 04-14-2024 L - -------- Specimen: [id number] Received: 04/14/24 Status: NIA Cordon Num: [id number] Spec Type: Surgical Subm Dr: Sonia Martinez DPM, MS Tissues: A Bone Fragments - Other than Path Fracture Procedures: HE -------- Age/ Patient Sex Location Account Attending Physician -------- Adonay Mitchell 69/M LABELL [id number] Sonia Martinez DPM, -------- SPEC NUM: [id number] RECD: 04/14/24 STATUS: NIA JAVIER NUM: [id number] MICHAEL: 04/14/[address] [facility] [address]: Sonia Martinez,DPM, MS ENTERED: 04/14/[address]: Madie,Lab SPEC TYPE: Surgical DEPT: [facility] ENTERED BY: [id number] RECV BY: [id number] ORDERED: HE ORDERED: HE Pathological Diagnosis Right [...] reveal juárez-peterson, firm and uniform cut surfaces. Deputy Sheriff/Investigator sections are submitted in a single cassette after decalcification. (1, , BS25-5) CPT Codes 17784 -------- -------- Specimen: [id number] Received: 04/14/24 Status: NIA Cordon Num: [id number] Spec Type: Surgical Subm Dr: Sonia Martinez,DPM, MS Tissues: A Bone Fragments - Other than Path Fracture Procedures: HE -------- Patient: Adonay Mitchell Vasiliy [id number] (Continued) -------- Signed (signature on file) Yesenia Soriano MD 04/16/24 1333 Normal [facility] Nonvisit Note - PTon 024 Nonvisit Note - PT Nonvisit Note - PT Called and spoke with patient's about the ionto situation and hopeful for approval on 12-28-23. She is going to call the pharmacy to see if the medication is ready and call back to schedule. KK Normal [facility] Nonvisit Note - PTon 024 Nonvisit Note - PT Nonvisit Note - PT chart reviewed with eval prepped for scheduled eval. KK. Normal [facility] CBC w/ Auto Diffon 4 Basophils/100 WBC (Bld) 0.6 % Normal 0.0-2.0 [facility] Comment on above: Performed By: #### 2 [id number] #### [facility] [address] [place] [address] Basophils/Leukocytes Auto (Bld) [Pure # fraction] 0.0 E9/L Normal 0.0-0.2 [facility] Comment on above: Performed By: #### 2 [id number] #### [facility] [address] [place] [address] Eosinophils (Bld) [#/Vol] 0.0 E9/L Normal 0.0-0.5 [facility] Comment on above: Performed By: #### 2 [id number] #### [facility] [address] [place] [address] Eosinophils/100 WBC (Bld) 0.5 % Normal 0.0-8.0 [facility] Comment on above: Performed By: #### 2 [id number] #### [facility] [address] [place] [address] Erythrocyte distribution width (RBC) [Ratio] 12.6 % Normal 10.9-14.2 [facility] Comment on above: Performed By: #### 2 265490 #### [facility] [address] [place] [address] Hematocrit (Bld) [Volume fraction] 41.6 % Normal 37.7-49.0 [facility] Comment on above: Performed By: #### 2 [id number] #### [facility] [address] [place] [address] Hemoglobin (Bld) [Mass/Vol] 14.7 g/dL Normal 13.5-17.5 [facility] Comment on above: Performed By: #### 2 [id number] #### [facility] [address] [place] [address] Lymphocytes (Bld) [#/Vol] 1.5 E9/L Normal 1.0-4.0 [facility] Comment on above: Performed By: #### 2 120580 #### [facility] [address] [place] [address] Lymphocytes/100 WBC (Bld) 23.2 % Normal 14.0-50.0 [facility] Comment on above: Performed By: #### 2 873701 #### [facility] [address] [place] [address] MCH (RBC) [Entitic mass] 33.0 pg Normal 27.0-34.0 [facility] Comment on above: Performed By: #### 2 [id number] #### [facility] [address] [place] [address] MCHC (RBC) [Mass/Vol] 35.4 g/dL Normal 31.4-36.0 [facility] Comment on above: Performed By: #### 2 586238 #### [facility] [address] [place] [address] MCV (RBC) [Entitic vol] 93.3 fL Normal 80.0-100.0 [facility] Comment on above: Performed By: #### 2 329924 #### [facility] [address] [place] [address] Monocytes (Bld) [#/Vol] 0.5 E9/L Normal 0.2-1.0 [facility] Comment on above: Performed By: #### 2 451846 #### [facility] [address] [place] [address] Neutrophils (Bld) [#/Vol] 4.2 E9/L Normal 2.0-7.5 [facility] Comment on above: Performed By: #### 2 214060 #### [facility] [address] [place] [address] Neutrophils/100 WBC (Bld) 67.3 % Normal 36.0-75.0 [facility] Comment on above: Performed By: #### 2 822858 #### [facility] [address] [place] [address] Platelet 223.0 E9/L Normal 150.0-500.0 [facility] Comment on above: Performed By: #### 2 168103 #### [facility] [address] [place] [address] Platelet mean volume (Bld) [Entitic vol] 7.7 fL Normal 6.4-10.8 [facility] Comment on above: Performed By: #### 2 060009 #### [facility] [address] [place] [address] RBC (Bld) [#/Vol] 4.5 E12/L Normal 4.3-5.9 [facility] Comment on above: Performed By: #### 2 013675 #### [facility] [address] [place] [address] WBC corrected for nucl RBC Auto (Bld) [#/Vol] 6.3 E9/L Normal 4.0-11.0 [facility] Comment on above: Performed By: #### 2 265746 #### [facility] [address] [place] [address] CMPon 12-05-2023 Albumin [Mass/Vol] 4.5 g/dL Normal 3.3-5.0 [facility] Comment on above: Performed By: #### 2 084018 #### [facility] [address] [place] [address] Albumin/Globulin (S) [Mass conc ratio] 2.3 High 1.1-2.2 [facility] Comment on above: Performed By: #### 2 516816 #### [facility] [address] [place] [address] ALP [Catalytic activity/Vol] 72 Int._Unit/L Normal 21-98 [facility] Comment on above: Performed By: #### 2 591659 #### [facility] [address] [place] [address] ALT No additional P-5'-P [Catalytic activity/Vol] 13 Int._Unit/L Normal 6-46 [facility] Comment on above: Performed By: #### 2 378083 #### [facility] [address] [place] [address] Anion gap [Moles/Vol] 9 mmol/L Normal 6-16 [facility] Comment on above: Performed By: #### 2 401594 #### [facility] [address] [place] [address] AST [Catalytic activity/Vol] 18 Int._Unit/L Normal 5-43 [facility] Comment on above: Performed By: #### 2 966312 #### [facility] [address] [place] [address] Bilirubin [Mass/Vol] 1.0 mg/dL Normal 0.0-1.1 [facility] Comment on above: Performed By: #### 2 266624 #### [facility] [address] [place] [address] Calcium [Mass/Vol] 9.2 mg/dL Normal 8.9-11.1 [facility] Comment on above: Performed By: #### 2 279362 #### [facility] [address] [place] [address] Chloride [Moles/Vol] 105 mmol/L Normal 101-111 [facility] Comment on above: Performed By: #### 2 153044 #### [facility] [address] [place] [address] CO2 [Moles/Vol] 28 mmol/L Normal 21-31 [facility] Comment on above: Performed By: #### 2 211506 #### [facility] [address] [place] [address] Creatinine [Mass/Vol] 1.3 mg/dL Normal 0.5-1.3 [facility] Comment on above: Performed By: #### 2 514405 #### [facility] [address] [place] [address] Globulin (S) [Mass/Vol] 2.0 g/dL Normal 1.4-4.0 [facility] Comment on above: Performed By: #### 2 962728 #### [facility] [address] [place] [address] Glucose [Mass/Vol] 92 mg/dL Normal 55-199 [facility] Comment on above: Performed By: #### 2 060419 #### [facility] [address] [place] [address] Potassium [Moles/Vol] 4.0 mmol/L Normal 3.5-5.3 [facility] Comment on above: Performed By: #### 2 330096 #### [facility] [address] [place] [address] Protein [Mass/Vol] 6.5 g/dL Normal 6.0-7.8 [facility] Comment on above: Performed By: #### 2 404201 #### [facility] [address] [place] [address] Sodium [Moles/Vol] 138 mmol/L Normal 135-145 [facility] Comment on above: Performed By: #### 2 621358 #### [facility] [address] [place] [address] Urea nitrogen [Mass/Vol] 19 mg/dL Normal 5-21 [facility] Comment on above: Performed By: #### 2 674218 #### [facility] [address] [place] [address] Urea nitrogen/Creatinine [Mass ratio] 15 No Units Normal 10-20 [facility] Comment on above: Performed By: #### 2 511307 #### [facility] [address] [place] [address] Lipid Panelon 12-05-2023 Cholesterol [Mass/Vol] 206 mg/dL High 120-200 [facility] Comment on above: Performed By: #### 2 555105 #### [facility] [address] [place] [address] Cholesterol in HDL [Mass/Vol] 52 mg/dL Invalid Interpretation Code [facility] Comment on above: Result Comment: '>= 60 LOW RISK' '<= 40 HIGH RISK' Performed By: #### 2 294828 #### [facility] [address] [place] [address] Cholesterol in LDL [Mass/Vol] 133 mg/dL High <=129 [facility] Comment on above: Performed By: #### 2 489802 #### [facility] [address] [place] [address] Cholesterol in VLDL [Mass/Vol] 19 mg/dL Normal 7-40 [facility] Comment on above: Performed By: #### 2 195937 #### [facility] [address] [place] [address] Triglyceride [Mass/Vol] 97 mg/dL Normal <=149 [facility] Comment on above: Performed By: #### 2 085807 #### [facility] [address] [place] [address] PSA Screen, Totalon 12-05-19 24 Prostate specific Ag [Mass/Vol] 0.8 ng/mL Normal 0.1-3.5 [facility] Comment on above: Result Comment: The concentration of PSA determined by different manufacturers can vary due to differences in assay methods and reagent specificity. Values obtained from different assay methods cannot be used interchangeably. The methodology used for this result was chemiluminescence using [employer] PSA reagent. Performed By: #### 1 [id number] #### [facility] [address] [place] [address] eGFRon 12-05-2023 eGFR 60 mL/min/1.73 m2 Normal >=59 [facility] Comment on above: Order Comment: Order added by Discern Expert. Performed By: #### 1 [id number] #### [facility] [address] [place] [address] XR FOOT RIGHT (MIN 3 VIEWS)o n [...] 11/29/23 Final result Normal [facility] ED Note-Physicianon 01-02-20 ED Note-Physician Basic [...] and Complexity of Problems Differential Diagnosis: [] [facility] Data External documents reviewed: [] My [...] Jones In 3 days 12/12/2022 EDT [address] [place] [address]- Business (1) Additional Instructions: Follow-up with Dr. jones for further evaluation of your right index finger pain. CLAUDINE SOLORIO In 3 days [address] [facility] [phone] Business (1) Additional Instructions: Patient Education Crush Injury of the Hand, Cxzk-ki-Bdun Contusion, Fxcd-er-Ydka Attestation Patient seen and evaluated by the physician insurance underwriting assistant. Attending physician was present in the emergency department and supervised care. This visit was performed by both the physician and an APC. I performed all aspects of the MDM as documented. This report was transcribed using voice recognition software. Every effort was made to ensure accuracy, however, inadvertently computerized dairy nutrition specialist mistakes may be present. Appropriate healthcare PPE w (more content not included)... Normal [facility] Comment on above: Result Comment: Elec tronically Signed By: Michel Jimenez PA-C\.br\Date and Time Signed: 12/09/22 15:01 EDT\.br\Electronically Co-Signed By: Bandar Castillo MD\.br\Date and Time Co-Signed: 01/01/23 02:17 EDT Consent for Treatmenton Consent for Treatment [id number] .[id number]:127 [facility] Discharge Instructionson Discharge Instructions [id number] .[id number]:127 [facility] ED Clinical Summaryon 2022 ED Clinical Summary [place] [id number] ED Clinical Summary Person Information Name: ADONAY MITCHELL [facility] Age: 67 Years : 1955 Sex: Male Language: Qatari PCP: CLAUDINE SOLORIO CNP Marital Status: Phone: [phone] Visit Id: Visit Reason: Finger pain-swelling; Finger [...] 12/09/2022 11:57:51 12/09/2022 11:57:51 ADDRESS: [address] [facility] [id number] [facility] DOC NOTES: MEDICAL INFORMATION: Prescriptions Given: Medications to Continue with No Changes Other Medications acetaminophen-hydroco done ([place] 325 mg-5 mg oral tablet) 1-2 tab(s) Oral q4hr PRN Pain. Duration 7 days.; as needed for pain. Refills: 0. PATIENT EDUCATION INFORMATION: Instructions: Crush Injury of the Hand, Jocm-yd-Uatm; Contusion, Xdqt-bl-Hnoq Follow up: With: Address: When: Sammy Jones [address] [place] [address] Business (1) In 3 days 12/12/2022 Comments: Follow-up with Dr. jones for further evaluation of your right index finger pain. With: Address: When: CLAUDINE SOLORIO [address] [facility] [phone] Business (1) In 3 days DIAGNOSIS: Injury of right index finger; Injury of tendon of intrinsic muscle of finger Normal [facility] ED Patient Education Noteon 12-09-2022 ED [...] cannot use soap and water, use hand tool engineer. ? Change your bandage as told by [...] by your doctor. General instructions ? Take qrcr-wyb-aouszjh and prescription medicines only as told by [...] t (more content not included)... Normal [facility] ED Patient Summaryon 023 ED Patient Summary [place] [id number] Patient Discharge Instructions Person Information Name: TAYLERBrooke ADONAY Amanda Age: 67 Years Arrival Date: 12/09/2022 10:21:17 Discharge Diagnosis: Injury of right index finger; Injury of tendon of intrinsic muscle of finger Primary Care Physician: CLAUDINE SOLORIO CNP Provider Information Primary Provider: Advanced Hoop Riveter:None The exam and treatment you received in the Emergency Department were for an urgent problem and are not intended as complete care. It is important that you follow up with a doctor, nurse practitioner, or physician?s insurance underwriting assistant for ongoing care. If your symptoms [...] Instructions: With: Address: When: Sammy Jones [address] [place] [address] [employer] (1) In 3 days 12/12/2022 Comments: Follow-up with Dr. jones for further evaluation of your right index finger pain. With: Address: When: CLAUDINE SOLORIO [address] [facility] [phone] [employer] (1) In 3 days In the event that this physician does not participate in your insurance network, please consult with your insurance company to find a nearby participating provider. Patient Education Materials: Crush Injury of the Hand, Rblr-zf-Fxfs; Contusion, Npnw-cl-Ypvq A MESSAGE TO ALL PATIENTS REGARDING OPIOIDS PRESCRIPTION OPIOIDS: WHAT YOU NEED TO KNOW Prescription opioids can be used to help relieve gniajdfg-sd-rsoihz pain and are often prescribed following a [...] and Drug Administration (www.fda.gov/Drugs/Re sourcesForYou). ? Visit [email or web address] (more content not included)... Normal [facility] XR Finger(s) Min 2 Views [facility] 12-09-2022 XR Finger(s) Min 2 Views Right [...] = na DAP = na Normal [facility] Albumin [Mass/volume] in Ser um or PlasmaOrdered By: [facility] on 02-11-2022 Albumin [Mass/Vol] 4.0 g/dL 3.2-5.5 [facility] Cholesterol [Mass/volume] in Serum or PlasmaOrdered By: [facility] on 02-11-2022 Cholesterol [Mass/Vol] 193 mg/dL 140-200 [facility] Comment on above: Chol less than 200 m g/dl low riskChol 201-239 mg/dl borderline riskChol 240 mg/dl and greater high risk Cholesterol in LDL Calc [Mas s/Vol]Ordered By: [facility] on 02-11-2022 Cholesterol in LDL [Mass/Vol] 127 mg/dL 0-[address] [facility] Comment on above: LDL ATP III CLASSIFI CATIONLDL less than 100 mg/dL OptimalLDL 100-129 mg/dL Near or above optimalLDL 130-159 mg/dL Borderline highLDL 160-189 mg/dL HighLDL greater than 189 mg/dL Very high Cholesterol in VLDL Calc [Ma ss/Vol]Ordered By: [facility] on 02-11-2022 Cholesterol in VLDL [Mass/Vol] 9 mg/dL [facility] Creatinine and Glomerular fi ltration rate.predicted panel (S/P/Bld)Ordered By: [facility] on 02-11-2022 Creatinine [Mass/Vol] 1.27 mg/dL 0.64-1.27 [facility] Erythrocyte distribution wid th Auto (RBC) [Ratio]Ordered By: [facility] on 02-11-2022 Erythrocyte distribution width (RBC) [Ratio] 12.7 % 12.0-14.[address] [facility] Estimated glomerular filtrat ion rate (GFR) non- AmericanOrdered By: [facility] on 02-11-2022 GFR/1.73 sq M.predicted among non-blacks MDRD (S/P/Bld) [Vol rate/Area] 57 mL/Min [facility] Hematocrit Auto (Bld) [Volum e fraction]Ordered By: [facility] on 02-11-2022 Hematocrit (Bld) [Volume fraction] 41.5 % 38.8-50.[address] [facility] Hemoglobin [Mass/volume] in BloodOrdered By: [facility] on 02-11-2022 Hemoglobin (Bld) [Mass/Vol] 13.9 g/dL 13.0-17.[address] [facility] MCH Auto (RBC) [Entitic mass ]Ordered By: [facility] on 02-11-2022 MCH (RBC) [Entitic mass] 31.9 pg 27.5-35.[address] [facility] MCHC Auto (RBC) [Mass/Vol]Or dered By: [facility] on 02-11-2022 MCHC (RBC) [Mass/Vol] 33.6 g/dL 32.5-35.6 [facility] MCV Auto (RBC) [Entitic vol] Ordered By: [facility] on 02-11-2022 MCV (RBC) [Entitic vol] 95.0 fL 83.5-101 [facility] No Panel InformationOrdered By: [facility] on 02-11-2022 Estimated GFR () > 60 mL/Min [facility] Comment on above: GFR estimated refere nce range: According to KDOQI guidelines, <60 ml/min/1.73m2 is sufficient to diagnose a patient with chronic kidney disease. Pharmacy Creatinine Clearance (Chem N/A [facility] Triglycerides Reflex 47 mg/dL 35-149 [facility] Comment on above: TRIG ATP III CLASSIF ICATIONTRIG less than 150 mg/dL NormalTRIG 150-199 mg/dL Borderline highTRIG 200-500 mg/dL High TRIG greater than 500 mg/dL Very highStandard traceable to the Center for Disease Conrtrol and Prevention (CDC) test method. Platelet mean volume Auto (B ld) [Entitic vol]Ordered By: [facility] on 02-11-2022 Platelet mean volume (Bld) [Entitic vol] 8.5 fL 6.6-10.[address] [facility] Platelets Auto (Bld) [#/Vol] Ordered By: [facility] on 02-11-2022 Platelets (Bld) [#/Vol] 233 10*3/uL 150-[address] [facility] Prostate specific Ag [Mass/v olume] in Serum or PlasmaOrdered By: [facility] on 02-11-2022 Prostate specific Ag [Mass/Vol] 0.610 ng/mL 0.000-4.[address] [facility] Protein [Mass/volume] in Ser um or PlasmaOrdered By: [facility] on 02-11-2022 Protein [Mass/Vol] 5.7 g/dL 6.1-7.9 [facility] RBC Auto (Bld) [#/Vol]Ordere d By: [facility] on 02-11-2022 RBC (Bld) [#/Vol] 4.36 10*6/uL 3.90-5.60 [facility] Serum or plasma alanine moon otransferase measurement without P-5'-P (enzymatic activiOrdered By: [facility] on 02-11-2022 ALT No additional P-5'-P [Catalytic activity/Vol] 19 U/L 10-[address] [facility] Serum or plasma alkaline tye sphatase measurement (enzymatic activity/volume)Ordered By: [facility] on 02-11-2022 ALP [Catalytic activity/Vol] 68 U/L 32-[address] [facility] Serum or plasma anion gap de terminationOrdered By: [facility] on 02-11-2022 Anion gap [Moles/Vol] 10.2 mmol/L 6.0-15.0 [facility] Serum or plasma aspartate am inotransferase measurement (enzymatic activity/volume)Ordered By: [facility] on 02-11-2022 AST [Catalytic activity/Vol] 24 U/L 10-[address] [facility] Serum or plasma calcium yajaira urement (mass/volume)Ordered By: [facility] on 02-11-2022 Calcium [Mass/Vol] 9.5 mg/dL 8.2-10.2 [facility] Serum or plasma chloride anupama surement (moles/volume)Ordered By: [facility] on 02-11-2022 Chloride [Moles/Vol] 105 mmol/L 95-114 [facility] Serum or plasma glucose yajaira urement (mass/volume)Ordered By: [facility] on 02-11-2022 Glucose [Mass/Vol] 87 mg/dL 70-100 [facility] Comment on above: ADA recommended refe rence rangeRandom Glucose Reference Range is dependent on time and content of last meal. Glucose of more than 200 mg/dL in a nonstressed, ambulatory subject supports the diagnosis of Diabetes Mellitus. Serum or plasma high density lipoprotein (HDL) cholesterol measurementOrdered By: [facility] on 02-11-2022 Cholesterol in HDL [Mass/Vol] 57 mg/dL 29- [facility] Comment on above: HDL CHOL ATP-III CLA SSIFICATION Cardiovascular RiskHDL > or equal to 60 mg/dL LOWHDL < 40 mg/dL HIGH Serum or plasma potassium me asurement (moles/volume)Ordered By: [facility] on 02-11-2022 Potassium [Moles/Vol] 4.1 mmol/L 3.5-5.1 [facility] Serum or plasma sodium measu rement (moles/volume)Ordered By: [facility] on 02-11-2022 Sodium [Moles/Vol] 138 mmol/L 136-146 [facility] Serum or plasma total biliru bin measurement (mass/volume)Ordered By: [facility] on 02-11-2022 Bilirubin [Mass/Vol] 1.0 mg/dL 0.3-1.2 [facility] Serum or plasma total carbon dioxide measurement (moles/volume)Ordered By: [facility] on 02-11-2022 CO2 [Moles/Vol] 26.9 mmol/L 22.0-30.0 [facility] Serum or plasma total choles terol/high density lipoprotein (HDL) cholesterol mass ratOrdered By: [facility] on 02-11-2022 Cholesterol.total/Stephanie sterol in HDL [Mass ratio] 3.4 {ratio} <5.[address] [facility] Serum or plasma urea nitroge n measurement (mass/volume)Ordered By: [facility] on 02-11-2022 Urea nitrogen [Mass/Vol] 15 mg/dL 12-[address] [facility] WBC Auto (Bld) [#/Vol]Ordere d By: [facility] on 02-11-2022 WBC (Bld) [#/Vol] 4.5 10*3/uL 4.1-10.5 [facility] Covid-19 PCR (CVDTBH)on SARS-CoV-2 (COVID-19) RNA LINDA+probe Ql (Unsp spec) Not detected Normal NOT DETECTED [facility] Comment on above: Result Comment: This test is not yet approved or cleared by the [place] FDA. When there are no FDA-approved or cleared tests available, and other criteria are met, FDA can make tests available under an emergency access mechanism called an Emergency Use Authorization (EUA). The EUA for this test is supported by the Business Technology Teacher of Health and Human Service's (HHS's) declaration [...] consistent with SARS-CoV-2. Performed By: #### [facility] #### [facility] [address] [address] [address] Leyda Chaudhry Encounters Encounter Date Encounter Type Care Provider Facility Start: 04-14-2024 End: 04-14-2024 ambulatory Sonia Martinez [facility] Work Phone: Start: 04-14-2024 End: 04-14-2024 Departed Referred Sonia Martinez DPM Work Phone: [facility] Start: 12-19-2023 End: 03-31-2024 ambulatory SONIA MARTINEZ Facility:[facility] Start: 12-05-2023 End: 12-05-2023 ambulatory Juan TERRAZAS Facility:[facility] Start: 11-29-2023 End: 11-29-2023 ambulatory JUAN TERRAZAS [facility] Start: 03-23-2023 End: 03-23-2023 ambulatory MANAGER MARKETING-C Yoli Martínez Work Phone: [facility] Work Phone: Start: 03-23-2023 End: 03-23-2023 Departed Referred MANAGER MARKETING-C Yolidae Martínez Work Phone: [facility] [place] Work Phone: Start: 12-09-2022 End: 12-09-2022 Emergency department patient visit Bandar Castillo Facility:[facility] Start: 06-30-2022 ambulatory Facility:1 [id number] Start: 02-11-2022 End: 02-11-2022 ambulatory NON STAFF [facility] Work Phone: Start: 02-11-2022 End: 02-11-2022 Departed Referred [facility] Work Phone: [facility] Start: 04-12-2021 End: 04-12-2021 ambulatory CLAUDINE DELGADILLO Facility: Plan of Treatment Date Care Activity Detail Author Start: 03-23-2023 Superficial Wound Culture Superficial Wound Culture [facility] Payers Date Payer Category Payer Self-pay [id number] 2022 Private Health Insurance [id number] 1958 Medicare [id number] 1959 Private Health Insurance CLI [id number] 1955 Unknown [id number] 1955 Unknown [id number] 1955 Unknown [id number] 1955 Unknown [id number] 1956 Unknown [id number] 1955 Unknown [id number] [facility] [id number] Unknown Unknown [id number] Social History Date Type Detail Facility [facility] Work Phone: Start: 1955 Sex Assigned At Male [facility] if ever smoked [facility] Work Phone: Start: 04-15-2024 Sex Male (finding) [facility] Evaluation note Note Date & Type Note Facility Evaluation note No assessment information availa ble [facility] Work Phone: Summary Purpose Family [...] DATE CREATED AUTHOR AUTHOR'S ORGANIZ ATION 08/19/2022 [facility] DATE CREATED AUTHOR AUTHOR'S ORGANIZ ATION [facility] DATE CREATED AUTHOR AUTHOR'S ORGANIZ ATION [facility]/07[facility]2023 [facility] DATE CREATED AUTHOR AUTHOR'S ORGANIZ ATION 04/02/2024 [facility] DATE CREATED AUTHOR AUTHOR'S ORGANIZ ATION 04/20/2024 [facility] Care Teams (unrecognized sec tion [...] BE BASED ON THE PRIMARY CLINICAL RECORDS. [facility]. provides no warranty or guarantee of the accuracy or completeness of information in this document.
== END 2024-06-10 10:50 | disposition home or self-care (01) ==
LOC: RAD 10:49
PROVIDERS: PCP Family Medicine; Visit Provider Podiatrist Foot & Ankle Surgery
DX: M79.671 Pain in right foot (principal); Z98.890 Other specified postprocedural states
CPT/HCPCS: 73630

== ENCOUNTER 2024-09-25 10:01 | Outpatient (OUT) | payer MEDICARE, SELFPAY ==
--- NOTE | 2024-09-25 | XR_ITS ---
The [address] [address] Patient Name: ADONAY MITCHELL MRN: [id number] date: 1955 Sex: M Assigned Patient Location: [facility] Current Patient Location: [facility] Accession/Order Number: [id number] Exam Date: 09/25/2024 10:29 Report Date: 09/25/2024 10:35 At the request of: SONIA MAYNARD DPM Procedure: XR foot RT min 3V RIGHT FOOT - 3 views CLINICAL DATA: Right foot pain. History of surgery 6 months ago. COMPARISON: 06/10/2024 Weightbearing AP, lateral and oblique views were obtained. There is prior fusion at the first metatarsal phalangeal joint with plates and screws similar to the prior. Similar mild deformity and subluxation is noted at the proximal interphalangeal joint of the second toe. There is no acute fracture or dislocation. There are no significant soft tissue abnormalities. XR/XR foot RT min 3V IMPRESSION: STABLE POSTOPERATIVE CHANGES INVOLVING THE FIRST TOE. NO ACUTE BONY FINDINGS. Impression dictated by: Chrystal Denise M.D. 09/25/2024 10:35 AM Dictation Location: [place] [address] Electronically authenticated by: [id number] Y Date: 09/25/2024 10:35
--- OUTSIDE RECORDS SUMMARY | 2024-09-25 10:05 | XMS_ITS | Encounter Summary ---
Author Organization [facility] Address [address] [place] [address] Care Team Providers Care Flight Radio Officer Name Role Phone Francois Mendez Primary Care Provider + Source Comments In the event this information is protected by the Federal Confidentiality of Alcohol and Drug AbusePatient Records regulations: The Federal rules restrict any use of the information to criminally investigate or prosecute any alcohol or drug abuse patient.[facility] Encounter Details Date Type Department Care Team (Late st Contact Info) Description 01/08/2021 [place] [address] Provider, [facility] Medicare Coverage of Physical Exams Social History Tobacco Use Types Packs/Day Years Used Date Smoking Tobacco: Never Alcohol Use Standard Drinks/Week Comments No 0 (1 standard drink = 0.6 oz pur e alcohol) Sex and Gender Information Value Date Recorded Sex Assigned at Not on file Legal Sex Male 9:17 AM EST Gender Identity Not on file Sexual Orientation Not on file documented as of this encounter Functional Status * Are you deaf or do you have serious difficulty hearing? Answer Date of Assessment Author No 06/09/2014 1:33 PM Anna Valencia Ma * Are you blind or do you have serious difficulty seeing, even when wearing glasses? Answer Date of Assessment Author No 06/09/2014 1:33 PM Anna Valencia Ma * Do you have serious difficulty walking or climbing stairs? Answer Date of Assessment Author No 06/09/2014 1:33 PM Anna Valencia Ma * Do you have difficulty dressing or bathing? Answer Date of Assessment Author No 06/09/2014 1:33 PM Anna Valencia Ma * Because of a physical, mental, or emotional condition, do you have difficulty doing errands alone such as visiting a doctor's office or shopping? Answer Date of Assessment Author No 06/09/2014 1:33 PM Anna Valencia Ma documented as of this encounter Mental Status * Because of a physical, mental, or emotional condition, do you have serious difficulty concentrating, remembering, or making decisions? Answer Entry Date Author No 06/09/2014 1:33 PM Anna Valencia Ma documented in this encounter Plan of Treatment Not on file documented as of this encounter Visit Diagnoses Not on filedocumented in this encounter Care Teams Flight Radio Officer Relationship Specialty Start Date End Date Francois Mendez [address] [place] [address] PCP - General 07/19/00 documented as of this encounter
--- OUTSIDE RECORDS SUMMARY | 2024-09-25 10:05 | XMS_ITS | Clinical Summary ---
Author Organization [facility] Address [address] [place] [address] Care Team Providers Care Financial Analysis Manager Name Role Phone Juan Moreira DO Primary Care Provider [phone] Allergies Active Allergy Reactions Criticality Noted Date Comments Codeine Other (See Comments) 12/20/2012 Severe migranes Medications methylPREDNISolo ne (MEDROL DOSEPACK) 4 MG tabletIndication s:Right foot pain Take by mouth. 1 kit 11/29/2023 Active Active Problems No known active problems Encounters Date Type Department Care Team Description 06/27/2024 Abstract [facility] Primary Care [address] [place] [address] Juan Moreira DO from Last 3 Months Immunizations Immunization Administration Dates Next Due TDaP, ADACEL (age 10y-64y), BOOSTRIX (age 10y+), IM, 0.5mL 12/09/2016 Family History Medical History Relation Name Comments Atrial Fibrillation Father Father Cancer Father Father High Cholesterol Father Father Arthritis Mother Nette Huizar Immune Disorder Mother Nette Huizar Lupus Mother Nette Huizar Osteoarthritis Mother Nette Huizar Colon Cancer Paternal Grandmother Amanda Huizar Relation Name Status Comments Father Father Mother Nette Huizar Paternal Grandmother Amanda Huizar Social History Tobacco Use Types Packs/Day Years Used Date Smoking Tobacco: Never Smokeless Tobacco: Never Tobacco Cessation:Counseling Given: No Alcohol Use Standard Drinks/Week Comments Never 0 (1 standard drink = 0.6 oz pur e alcohol) Humiliation, Afraid, Rape, and Kick questionnair e Answer Date Recorded Within the last year, have y ou been afraid of your partner or ex-partner? No 01/10/2023 Within the last year, have y ou been humiliated or emotionally abused in other ways by your partner or ex-partner? No Within the last year, have y ou been kicked, hit, slapped, or otherwise physically hurt by your partner or ex-partner? No 01/10/2023 Within the last year, have y ou been raped or forced to have any kind of sexual activity by your partner or ex-partner? No 01/10/2023 AUDIT-C Answer Date Recorded Q1: How often do you have a drink containing alcohol? Never 11/30/2023 Q2: How many drinks containi ng alcohol do you have on a typical day when you are drinking? Patient does not drink Q3: How often do you have si x or more drinks on one occasion? Never 11/30/2023 Overall Financial Resource Strain (CARDIA) Answe r Date Recorded How hard is it for you to pa y for the very basics like food, housing, medical care, and heating? Not hard at all 01/12/2023 PHQ-2 Answer Date Recorded PHQ-9 Total Score 0 11/30/2023 Exercise Vital Sign Answer Date Recorde d On average, how many days pe r week do you engage in moderate to strenuous exercise (like a brisk walk)? 0 days 11/30/2023 On average, how many minutes do you engage in exercise at this level? 0 min 11/30/2023 Hunger Vital Sign Answer Date Recorded Within the past 12 months, y ou worried that your food would run out before you got the money to buy more. Never true 01/13/20 Within the past 12 months, t he food you bought just didn't last and you didn't have money to get more. Never true 01/12/2023 PRAPARE - Transportation Answer Date Re corded Lack of Transportation (Medical) Not on file 01/12/2023 In the past 12 months, has l ack of transportation kept you from meetings, work, or from getting things needed for daily living? No 01/12/2023 Housing Stability Vital Sign Answer Kit e Recorded Unable to Pay for Housing in the Last Year Not o n file 01/12/2023 Number of Places Lived in the Last Year Not on f ile 01/12/2023 In the last 12 months, was t here a time when you did not have a steady place to sleep or slept in a prison (including now)? No 01/12/2023 Food Insecurity Answer Date Recorded Within the past 12 months, y ou worried that your food would run out before you got the money to buy more. 1 01/12/2023 Within the past 12 months, t he food you bought just didn't last and you didn't have money to get more. 1 01/12/2023 Sex and Gender Information Value Date Recorded Sex Assigned at Not on file Legal Sex Male 1:45 PM EST Gender Identity Not on file Sexual Orientation Not on file Last Filed Vital Signs Vital Sign Reading Time Taken Comments Blood Pressure 112/78 11/29/2023 9:34 AM EDT Pulse 59 01/28/2018 11:53 AM EDT Temperature 36.3 C (97.4 F) 11/29/2023 9:34 AM EDT Respiratory Rate 16 01/28/2018 11:53 AM EDT Oxygen Saturation 99% 01/28/2018 11:53 AM EDT Inhaled Oxygen Concentration - - Weight 79.4 kg (175 lb) 11/29/2023 9:34 AM EDT Height 180.3 cm (5' 11 ) 11/29/2023 9:34 AM EDT Body Mass Index 24.41 11/29/2023 9:34 AM EDT Plan of Treatment Health Maintenance Due Date Last Done Comments Hepatitis C screen 01/08/1974 FIT/FOBT: Average risk 01/08/2001 Fecal-DNA (Cologuard): [place] ge risk 01/08/2001 Sigmoidoscopy/CT colonography 01/08/2001 Pneumococcal 50+ years Vacci ne (1 of 1 - PCV) 01/08/2006 Shingles vaccine (1 of 2) 01/08/2006 COVID-19 Vaccine ( - 2023-2 5 season) 2023 Colonoscopy 02/07/2024 02/06/2014, 02/06/2014 Colorectal Cancer Screen 02/07/2024 Flu vaccine (Season Ended) 2024 Depression Screen 11/29/2024 11/30/2023, 11/30/2023 Annual Wellness Visit (Medicare) 11/30/2024 11/30/2023 DTaP/Tdap/Td vaccine (2 - Td or Tdap) 12/09/2026 12/09/2016 Lipids 12/04/2028 12/05/2023 Respiratory Syncytial Virus (RSV) or age 60 yrs+ (1 - 1-dose 75+ series) 01/08/2031 Hepatitis A vaccine Aged Out No longe r eligible based on patient's age to complete this topic Hepatitis B vaccine Aged Out No longe r eligible based on patient's age to complete this topic Hib vaccine Aged Out No longer eligi ble based on patient's age to complete this topic Meningococcal (ACWY) vaccine Aged Out No longer eligible based on patient's age to complete this topic Meningococcal B vaccine Aged Out No l onger eligible based on patient's age to complete this topic Polio vaccine Aged Out No longer elig ible based on patient's age to complete this topic Procedures Procedure Name Priority Date/Time Associated Diagnosis Comments LIPID PANEL Routine 12/05/2023 12:57 PM EDT COLONOSCOPY Routine 02/06/2014 from Last 3 Months or Most Recently Relevant to Health Maintenance Results * Lipid Panel (12/05/2023 12:57 PM EDT) Blood BLOOD SPECIMEN / Unknown Juan Moreira DO CHEMISTRY ORDERABLES Final Re sult * COLONOSCOPY (02/06/2014) Dc Laurent DO HEALTH MAINTENANCE Final Resu lt from Last 3 Months or Most Recently Relevant to Health Maintenance Insurance MEDICARE AETNA [facility]IC[facility] Directives Healthcare Agents on File Name Relationship [facility] Eva Bhupendra Spouse Primary Decision Maker Care Teams Financial Analysis Manager Relationship Specialty Start Date End Date Juan Moreira DO [address] [place] [address] PCP - General Family Medicine 01/12/23
--- OUTSIDE RECORDS SUMMARY | 2024-09-25 10:06 | XMS_ITS | Encounter Summary ---
Author Organization [facility] Address [address] [facility] [place] [address] Care Team Providers Care Social Worker Psychiatric Name Role Phone Joselin Gould MD Unavailable [phone] Encounter Details Date Type Department Care Team (Late st Contact Info) Description 12/10/2022 Abstract [facility] [address] [address] [place] [address] Cresecnio Singletary, DPM FACFAS [address] [place] [address] Social History Tobacco Use Types Packs/Day Years Used Date Smoking Tobacco: Never Smokeless Tobacco: Never Alcohol Use Standard Drinks/Week Comments Yes 0 (1 standard drink = 0.6 oz pur e alcohol) Sex and Gender Information Value Date Recorded Sex Assigned at Not on file Legal Sex Male 6:45 PM EDT Gender Identity Not on file Sexual Orientation Not on file documented as of this encounter Plan of Treatment Not on file documented as of this encounter Visit Diagnoses Not on filedocumented in this encounter Care Teams Social Worker Psychiatric Relationship Specialty Start Date End Date Joselin Gould MD [address] [place] [address] Primary Care Provider Family Medicine 12/14/22 documented as of this encounter
--- OUTSIDE RECORDS SUMMARY | 2024-09-25 10:06 | XMS_ITS | Clinical Summary ---
Author Organization [facility] Address [address] [place] [address] Care Team Providers Care Senior Investment Manager Name Role Phone Joselin Gould MD Unavailable [phone] Allergies Active Allergy Reactions Criticality Noted Date Comments Codeine Headache 12/20/2012 Severe migranes Other Reaction(s): Other (See Comments), Other: See Comments Medications No known medications Active Problems Problem Noted Date Diagnosed Date Contusion of right middle finger without damage to nail 12/18/2022 Contusion of right index finger without damage t o nail 12/18/2022 Complex tear of triangular fibrocartilage of lef t wrist 09/20/2022 Localized primary osteoarthritis of left wrist 0 09/20/2022 Family History Medical History Relation Name Comments Cancer Father Heart disease Father Relation Name Status Comments Father Paternal Grandfather Sibling Social History Tobacco Use Types Packs/Day Years [...] Sign Reading Time Taken Comments Blood Pressure 119/76 06/23/2020 12:00 PM EDT Pulse - - Temperature 36 C (96.8 F) 12/14/2022 9:43 AM EDT Respiratory Rate - - Oxygen Saturation - - Inhaled Oxygen Concentration - - Weight 77.6 kg (171 lb) 12/14/2022 9:43 AM EDT Height 181.6 cm (5' 11.5 ) 12/14/2022 9:43 AM ED T Body Mass Index 23.52 12/14/2022 9:43 AM EDT Plan of Treatment Not on file Insurance MEDICARE AETNA Care Teams Senior Investment Manager Relationship Specialty Start Date End Date Joselin Gould MD [address] [place] [id number] Primary Care Provider Family Medicine 12/14/22
--- OUTSIDE RECORDS SUMMARY | 2024-09-25 10:06 | XMS_ITS | Clinical Summary ---
Author Organization [facility] Address [address] [place] [address] Phone Care Team Providers Care Remnants Cutter Name Role Phone Unavailable Primary Care Provider Unavailabl e Social History Tobacco Use Types Packs/Day Years Used Date Smoking Tobacco: Never Assessed Sex and Gender Information Value Date Recorded Sex Assigned at Not on file Legal Sex Male 11:37 AM EST Gender Identity Not on file Sexual Orientation Not on file Plan of Treatment Health Maintenance Due Date Last Done Comments CT Colonography 1955 Colonoscopy 1955 Colorectal Cancer Screening 1955 FIT-DNA (Cologuard) 1955 FIT 1955 Lipid Panel 1955 Sigmoidoscopy 1955 Yearly Adult Physical 1955 Hepatitis C Screening 01/08/1974 DTaP/Tdap/Td Vaccines (1 - Tdap) 01/08/1978 Pneumococcal Vaccine (1 of 1 - PCV) 01/08/2006 Zoster Vaccines (1 of 2) 01/08/2006 COVID-19 Vaccine (1 - 2023-2 5 season) 2023 Influenza Vaccine (Season Ended) 2024 RSV High Risk: (Elderly (60+ ) or Population) (1 - 1-dose 75+ series) 01/08/2031 HIB Vaccines Aged Out No longer eligi ble based on patient's age to complete this topic HPV Vaccines Aged Out No longer eligi ble based on patient's age to complete this topic Hepatitis A Vaccines Aged Out No long er eligible based on patient's age to complete this topic Hepatitis B Vaccines Aged Out No long er eligible based on patient's age to complete this topic IPV Vaccines Aged Out No longer eligi ble based on patient's age to complete this topic Meningococcal Vaccine Aged Out No alexey hieu eligible based on patient's age to complete this topic Rotavirus Vaccines Aged Out No longer eligible based on patient's age to complete this topic
--- OUTSIDE RECORDS SUMMARY | 2024-09-25 10:06 | XMS_ITS | Encounter Summary ---
Author Organization [facility] Address [address] [place] [address] Care Team Providers Care Infection Control Specialist Name Role Phone Juan Moreira DO Primary Care Provider [phone] Encounter Details Date Type Department Care Team (Late st Contact Info) Description 05/09/2024 Orders Only [facility] Primary Care [address] [place], [place] [id number] ProviderNaren MD Social History Tobacco Use Types Packs/Day Years Used Date Smoking Tobacco: Never Smokeless Tobacco: Never Alcohol Use Standard Drinks/Week Comments Never 0 [...] place to sleep or slept in a penitentiary (including now)? No 01/12/2023 Food Insecurity Answer [...] on file documented as of this encounter Procedures Procedure Name Priority Date/Time Associated Diagnosis Comments XR FOOT RIGHT (MIN 3 VIEWS) Routine 05/07/2024 11:58 AM EST documented in this encounter Results * XR FOOT RIGHT (MIN 3 VIEWS) (05/07/2024 11:58 AM EST) Anatomical Region Laterality Modality Foot, Ankle Radiographic Yamilka ging us Historical Provider MD [facility] Final Result documented in this encounter Visit Diagnoses Not on filedocumented in this encounter Additional Health Concerns Assessment Noted Time A fall risk assessment has been complete d for the patient 11/30/2023 11:47 AM EDT documented as of this encounter Care Teams Infection Control Specialist Relationship Specialty Start Date End Date Juan Moreira DO [address] [place], [place] [id number] PCP - General Family Medicine 01/12/23 documented as of this encounter
--- OUTSIDE RECORDS SUMMARY | 2024-09-25 10:06 | XMS_ITS | Continuity of Care Document ---
Author Organization [facility] Address [facility] [address] [place] [address] Phone [phone] Care Team Providers Care Paper Colorer Name Role Phone CHRISSY MOSER M.D. Care Team Information Ornamental Metal Worker Apprentice Unavailable Medications Active Medications SIG Qnty Indications Ordering Provider Date [id number] Tablets take 6, 5, 4, 3, 2, 1 tabs daily for 6 days 21tabs Chrissy Moser M.D. 01/04/2011
--- OUTSIDE RECORDS SUMMARY | 2024-09-25 10:06 | XMS_ITS | Clinical Summary ---
Author Organization [facility] Address [address] [place] [id number] Care Team Providers Care Tire And Lube Technician Name Role Phone Francois Mendez Primary Care Provider + Allergies Active Allergy Reactions Criticality Noted Date Comments Codeine Other: See Comments 12/20/2012 Severe migranes Medications nebivolol (BYSTOLIC) 5 mg tablet Take 5 mg by mouth once daily. Active HERBAL DRUGS ORAL Take 300 mg by mouth twice daily. Active pyridoxine (VITAMIN B-6) 100 mg tablet Take 100 mg by mouth once daily. Active ascorbic acid (VITAMIN C) 500 mg tablet Take 500 mg by mouth once daily. Active TENS Units elle Bid prn 1 Device 0 4 Active OMEGA-3 FATTY ACIDS (FISH OIL CONCENTRATE ORAL) Take by mouth. Active VOLTAREN 1 % topical gel APPLY TO AFFECTED AREA DIRECTED 100 g 2 6 Active Active Problems Problem Noted Date Diagnosed Date Other synovitis and tenosynovitis 07/17/2013 Overview (07/17/2013): [facility] Contusion of elbow 08/20/2012 Overview (07/17/2013): [facility] Lesion of ulnar nerve 08/20/2012 Overview (07/17/2013): [facility] Brachial neuritis or radiculitis 08/20/2012 Overview (07/17/2013): [facility] Lateral epicondylitis 08/20/2012 Overview (07/17/2013): [facility] Synovitis and tenosynovitis 08/20/2012 Family History Medical History Relation Comments None Brother 3 None Daughter 2 Alzheimer's Disease Father Cancer Father Alzheimer's Disease Mother None Son 2 Relation Status Comments Brother 1 Alive Brother 2 Alive Brother 3 Daughter 1 Alive Daughter 2 Father Maternal Grandfather Maternal Grandmother Mother Alive Paternal Grandfather Paternal Grandmother Son 1 Alive Son 2 Social History Tobacco Use Types Packs/Day Years [...] Sign Reading Time Taken Comments Blood Pressure 101/75 02/19/2014 10:06 AM EST Pulse 64 02/19/2014 10:06 AM EST Temperature 36.6 C (97.9 F) 02/13/2014 8:26 AM EST Respiratory Rate 18 02/13/2014 8:26 AM EST Oxygen Saturation 100% 02/19/2014 10:06 AM EST Inhaled Oxygen Concentration - - Weight 83.5 kg (184 lb) 02/19/2014 10:06 AM EST Height 182.9 cm (6') 02/19/2014 10:06 AM EST Body Mass Index 24.95 02/19/2014 10:06 AM EST Plan of Treatment Health Maintenance Due Date Last Done Comments Anxiety Screening 01/08/1974 Depression Screening 01/08/1974 Hepatitis C Screening 01/08/1974 DTaP,Tdap,Td Vaccine (1 - Tdap) 01/08/1975 Lipid Screening 01/08/1991 CT Colonography 01/08/2001 Cologuard (FIT-DNA) 01/08/2001 Colonoscopy 01/08/2001 Colorectal Cancer Screening 01/08/2001 Diabetes Screening 01/08/2001 Fecal Occult Blood 01/08/2001 Prostate Cancer Screening Discussion 01/08/2001 Sigmoidoscopy 01/08/2001 Pneumococcal Vaccine: 50+ (1 of 1 - PCV) 01/08/2006 Shingrix Vaccine (1 of 2) 01/08/2006 Covid-19 Vaccine ( - 2023-25 season) 2023 Advance Directive Discussion 04/09/2024 Influenza Vaccine (Season Ended) 2024 RSV Vaccine (1 - 1-dose 75+ series) 01/08/2031 Medical Devices Implanted Type Area Airconditioning Drafting Officer Device Identifier Shelf Expiration Date Model / Serial / Lot [id number] 7mm Axoguard Tiss 40mm - [id number] Implanted:Qty: 1 on 12/27/2012 at [facility] Implant Right: Bone - Elbow AXOGEN 05/09/2014 [id number] / / [id number] Insurance [facility] Care Teams Tire And Lube Technician Relationship Specialty Start Date End Date Francois Mendez [address] [place] [id number] [facility] - General 07/19/00
--- OUTSIDE RECORDS SUMMARY | 2024-09-25 10:23 | XMS_ITS | CCD ---
Author Organization [facility] Care Team Providers Care Gauge Controller Name Role Phone CLAUDINE DELGADILLO Attending Unavailable CLAUDINE DELGADILLO Consulting Unavailable CLAUDINE DELGADILLO Admitting Unavailable [facility] Attending Provider NON STAFF Primary Care Provider EMILIO Hernandez Attending Provider JUAN TERRAZAS Primary Care Unavailable JUAN TERRAZAS Referring Unavailable Juan TERRAZAS Admitting Unavailable Juan TERRAZAS Attending Bandar Venegas Attending SONIA Santacruz Referring SONIA Santacruz Attending Unavailable Juan TERRAZAS Admitting Juan Perez Attending Sonia Santacruz DPM Attending Provider [phone] Sonia Martinez Attending Sonia Santacruz Admitting Marti Allergies Allergy Classification Reported Allergen(s) Allergy Type Date of Onset Reaction(s) Facility (2 sources) Codeine; Translations: [codeine] Drug Allergy [facility] Repository Problems Active Problems Problem Classification Problem [...] By: Yesenia Soriano on 04-16-2024 Pathology study [facility] Other Phone: Ruben 04-14-2024 L - -------- Specimen: [id number] Received: 04/14/24 Status: NIA Cordon Num: [id number] Spec Type: Surgical Subm Dr: Sonia Martinez DPM, MS Tissues: A Bone Fragments - Other than Path Fracture Procedures: HE -------- Age/ Patient Sex Location Account Attending Physician -------- Adonay Mitchell 69/M LABELL [id number] Sonia Martinez DPM, -------- SPEC NUM: [id number] RECD: 04/14/24 STATUS: NIA JAVIER NUM: [id number] MICHAEL: 04/14/[address] [facility] [address]: Sonia Martinez,DPM, MS ENTERED: 04/14/[address]: Madie,Lab SPEC TYPE: Surgical DEPT: [facility] ENTERED BY: [id number] RECV BY: [id number] ORDERED: HE ORDERED: HE Pathological Diagnosis Right [...] reveal juárez-peterson, firm and uniform cut surfaces. Quantitative Research Analyst sections are submitted in a single cassette after decalcification. (1, , BS25-5) CPT Codes 86588 -------- -------- Specimen: [id number] Received: 04/14/24 Status: NIA Cordon Num: [id number] Spec Type: Surgical Subm Dr: Sonia Martinez,DPM, MS Tissues: A Bone Fragments - Other than Path Fracture Procedures: HE -------- Patient: Adonay Mitchell Vasiliy [id number] (Continued) -------- Signed (signature on file) Yesenia Soriano MD 04/16/24 1333 Normal [facility] Nonvisit Note - PTon 024 Nonvisit Note - PT Nonvisit Note - PT Called and spoke with patient's about the ionto situation and hopeful for approval on 12-28-23. She is going to call the pharmacy to see if the medication is ready and call back to schedule. KK [facility] Nonvisit Note - PTon 024 Nonvisit Note - PT Nonvisit Note - PT chart reviewed with eval prepped for scheduled eval. KK. [facility] CBC w/ Auto Diffon 4 Basophils/100 WBC (Bld) 0.6 % Normal 0.0-2.0 [facility] Comment on above: Performed By: #### 2 [id number] #### [facility] [address] [place] [address] Basophils/Leukocytes Auto (Bld) [Pure # fraction] 0.0 E9/L Normal 0.0-0.2 [facility] Comment on above: Performed By: #### 2 [id number] #### [facility] [address] [place] [address] Eosinophils (Bld) [#/Vol] 0.0 E9/L Normal 0.0-0.5 [facility] Comment on above: Performed By: #### 2 [id number] #### [facility] [address] [place] [address] Eosinophils/100 WBC (Bld) 0.5 % Normal 0.0-8.0 [facility] Comment on above: Performed By: #### 2 [id number] #### [facility] [address] [place] [address] Erythrocyte distribution width (RBC) [Ratio] 12.6 % Normal 10.9-14.2 [facility] Comment on above: Performed By: #### 2 841936 #### [facility] [address] [place] [address] Hematocrit (Bld) [Volume fraction] 41.6 % Normal 37.7-49.0 [facility] Comment on above: Performed By: #### 2 399344 #### [facility] [address] [place] [address] Hemoglobin (Bld) [Mass/Vol] 14.7 g/dL Normal 13.5-17.5 [facility] Comment on above: Performed By: #### 2 998337 #### [facility] [address] [place] [address] Lymphocytes (Bld) [#/Vol] 1.5 E9/L Normal 1.0-4.0 [facility] Comment on above: Performed By: #### 2 557306 #### [facility] [address] [place] [address] Lymphocytes/100 WBC (Bld) 23.2 % Normal 14.0-50.0 [facility] Comment on above: Performed By: #### 2 854716 #### [facility] [address] [place] [address] MCH (RBC) [Entitic mass] 33.0 pg Normal 27.0-34.0 [facility] Comment on above: Performed By: #### 2 112618 #### [facility] [address] [place] [address] MCHC (RBC) [Mass/Vol] 35.4 g/dL Normal 31.4-36.0 [facility] Comment on above: Performed By: #### 2 519037 #### [facility] [address] [place] [address] MCV (RBC) [Entitic vol] 93.3 fL Normal 80.0-100.0 [facility] Comment on above: Performed By: #### 2 365407 #### [facility] [address] [place] [address] Monocytes (Bld) [#/Vol] 0.5 E9/L Normal 0.2-1.0 [facility] Comment on above: Performed By: #### 2 462779 #### [facility] [address] [place] [address] Neutrophils (Bld) [#/Vol] 4.2 E9/L Normal 2.0-7.5 [facility] Comment on above: Performed By: #### 2 102303 #### [facility] [address] [place] [address] Neutrophils/100 WBC (Bld) 67.3 % Normal 36.0-75.0 [facility] Comment on above: Performed By: #### 2 873817 #### [facility] [address] [place] [address] Platelet 223.0 E9/L Normal 150.0-500.0 [facility] Comment on above: Performed By: #### 2 199445 #### [facility] [address] [place] [address] Platelet mean volume (Bld) [Entitic vol] 7.7 fL Normal 6.4-10.8 [facility] Comment on above: Performed By: #### 2 878899 #### [facility] [address] [place] [address] RBC (Bld) [#/Vol] 4.5 E12/L Normal 4.3-5.9 [facility] Comment on above: Performed By: #### 2 800139 #### [facility] [address] [place] [address] WBC corrected for nucl RBC Auto (Bld) [#/Vol] 6.3 E9/L Normal 4.0-11.0 [facility] Comment on above: Performed By: #### 2 790986 #### [facility] [address] [place] [address] CMPon 12-05-2023 Albumin [Mass/Vol] 4.5 g/dL Normal 3.3-5.0 [facility] Comment on above: Performed By: #### 2 070919 #### [facility] [address] [place] [address] Albumin/Globulin (S) [Mass conc ratio] 2.3 High 1.1-2.2 [facility] Comment on above: Performed By: #### 2 469134 #### [facility] [address] [place] [address] ALP [Catalytic activity/Vol] 72 Int._Unit/L Normal 21-98 [facility] Comment on above: Performed By: #### 2 [id number] #### [facility] [address] [place] [address] ALT No additional P-5'-P [Catalytic activity/Vol] 13 Int._Unit/L Normal 6-46 [facility] Comment on above: Performed By: #### 2 [id number] #### [facility] [address] [place] [address] Anion gap [Moles/Vol] 9 mmol/L Normal 6-16 [facility] Comment on above: Performed By: #### 2 931025 #### [facility] [address] [place] [address] AST [Catalytic activity/Vol] 18 Int._Unit/L Normal 5-43 [facility] Comment on above: Performed By: #### 2 560110 #### [facility] [address] [place] [address] Bilirubin [Mass/Vol] 1.0 mg/dL Normal 0.0-1.1 [facility] Comment on above: Performed By: #### 2 641061 #### [facility] [address] [place] [address] Calcium [Mass/Vol] 9.2 mg/dL Normal 8.9-11.1 [facility] Comment on above: Performed By: #### 2 017570 #### [facility] [address] [place] [address] Chloride [Moles/Vol] 105 mmol/L Normal 101-111 [facility] Comment on above: Performed By: #### 2 123802 #### [facility] [address] [place] [address] CO2 [Moles/Vol] 28 mmol/L Normal 21-31 [facility] Comment on above: Performed By: #### 2 384164 #### [facility] [address] [place] [address] Creatinine [Mass/Vol] 1.3 mg/dL Normal 0.5-1.3 [facility] Comment on above: Performed By: #### 2 542279 #### [facility] [address] [place] [address] Globulin (S) [Mass/Vol] 2.0 g/dL Normal 1.4-4.0 [facility] Comment on above: Performed By: #### 2 947682 #### [facility] [address] [place] [address] Glucose [Mass/Vol] 92 mg/dL Normal 55-199 [facility] Comment on above: Performed By: #### 2 653283 #### [facility] [address] [place] [address] Potassium [Moles/Vol] 4.0 mmol/L Normal 3.5-5.3 [facility] Comment on above: Performed By: #### 2 298075 #### [facility] [address] [place] [address] Protein [Mass/Vol] 6.5 g/dL Normal 6.0-7.8 [facility] Comment on above: Performed By: #### 2 900357 #### [facility] [address] [place] [address] Sodium [Moles/Vol] 138 mmol/L Normal 135-145 [facility] Comment on above: Performed By: #### 2 268362 #### [facility] [address] [place] [address] Urea nitrogen [Mass/Vol] 19 mg/dL Normal 5-21 [facility] Comment on above: Performed By: #### 2 777125 #### [facility] [address] [place] [address] Urea nitrogen/Creatinine [Mass ratio] 15 No Units Normal 10-20 [facility] Comment on above: Performed By: #### 2 690890 #### [facility] [address] [place] [address] Lipid Panelon 12-05-2023 Cholesterol [Mass/Vol] 206 mg/dL High 120-200 [facility] Comment on above: Performed By: #### 2 894401 #### [facility] [address] [place] [address] Cholesterol in HDL [Mass/Vol] 52 mg/dL Invalid Interpretation Code [facility] Comment on above: Result Comment: '>= 60 LOW RISK' '<= 40 HIGH RISK' Performed By: #### 2 478227 #### [facility] [address] [place] [address] Cholesterol in LDL [Mass/Vol] 133 mg/dL High <=129 [facility] Comment on above: Performed By: #### 2 291804 #### [facility] [address] [place] [address] Cholesterol in VLDL [Mass/Vol] 19 mg/dL Normal 7-40 [facility] Comment on above: Performed By: #### 2 382711 #### [facility] [address] [place] [address] Triglyceride [Mass/Vol] 97 mg/dL Normal <=149 [facility] Comment on above: Performed By: #### 2 775371 #### [facility] [address] [place] [address] PSA Screen, Totalon 12-05-19 24 Prostate specific Ag [Mass/Vol] 0.8 ng/mL Normal 0.1-3.5 [facility] Comment on above: Result Comment: The concentration of PSA determined by different manufacturers can vary due to differences in assay methods and reagent specificity. Values obtained from different assay methods cannot be used interchangeably. The methodology used for this result was chemiluminescence using [employer]'s Access Hybritech PSA reagent. Performed By: #### 1 [id number] #### [facility] [address] [place] [address] eGFRon 12-05-2023 eGFR 60 mL/min/1.73 m2 Normal >=59 [facility] Comment on above: Order Comment: Order added by Discern Expert. Performed By: #### 1 [id number] #### [facility] [address] [place] [address] XR FOOT RIGHT (MIN 3 VIEWS)o n [...] Pires MD 11/29/23 Final result Normal [facility] ED Note-Physicianon 01-02-20 ED Note-Physician Basic [...] and Complexity of Problems Differential Diagnosis: [] [facility] Data External documents reviewed: [] My [...] Jones In 3 days 12/12/2022 EDT [address] [place] [address]- Business (1) Additional Instructions: Follow-up with Dr. jones for further evaluation of your right index finger pain. CLAUDINE SOLORIO In 3 days [address] [place] [phone] Business (1) Additional Instructions: Patient Education Crush Injury of the Hand, Przp-cj-Bobr Contusion, Rsmg-wx-Xbdi Attestation Patient seen and evaluated by the physician clinical trials assistant. Attending physician was present in the emergency department and supervised care. This visit was performed by both the physician and an APC. I performed all aspects of the MDM as documented. This report was transcribed using voice recognition software. Every effort was made to ensure accuracy, however, inadvertently computerized fire marshal mistakes may be present. Appropriate healthcare PPE w (more content not included)... [facility] Comment on above: Result Comment: Elec tronically Signed By: Michel Jimenez PA-C\.br\Date and Time Signed: 12/09/22 15:01 EDT\.br\Electronically Co-Signed By: aBndar Castillo MD\.br\Date and Time Co-Signed: 01/01/23 02:17 EDT Consent for Treatmenton Consent for Treatment [id number] .00CD:127 [facility] Discharge Instructionson Discharge Instructions [id number] .[id number]:127 [facility] ED Clinical Summaryon 2022 ED Clinical Summary [place] [id number] ED Clinical Summary Person Information Name: ADONAY MITCHELL Stacy/[facility] Age: 67 Years : 1955 Sex: Male Language: Citizen Of [place] PCP: CLAUDINE SOLORIO CNP Marital Status: Phone: [phone] Visit Id: Visit Reason: Finger pain-swelling; Finger [...] 12/09/2022 11:57:51 12/09/2022 11:57:51 AD[address]ESS: [address] [facility] [id number] [facility] DOC NOTES: MEDICAL INFORMATION: Prescriptions Given: Medications to Continue with No Changes Other Medications acetaminophen-hydroco done (Galt 325 mg-5 mg oral tablet) 1-2 tab(s) Oral q4hr PRN Pain. Duration 7 days.; as needed for pain. Refills: 0. PATIENT EDUCATION INFORMATION: Instructions: Crush Injury of the Hand, Izdg-sp-Tppe; Contusion, Lhek-ou-Cpas Follow up: With: Address: When: Sammy Jones [address] [place] [address] Business (1) In 3 days 12/12/2022 Comments: Follow-up with Dr. jones for further evaluation of your right index finger pain. With: Address: When: CLAUDINE SOLORIO [address] [place] [phone] Business (1) In 3 days DIAGNOSIS: Injury of right index finger; Injury of tendon of intrinsic muscle of finger [facility] ED Patient Education Noteon 12-09-2022 ED Patient [...] cannot use soap and water, use hand academic associate. ? Change your bandage as told by [...] by your doctor. General instructions ? Take kcys-jtt-dorboxl and prescription medicines only as told by [...] given t (more content not included)... [facility] ED Patient Summaryon 023 ED Patient Summary [place] [id number] Patient Discharge Instructions Person Information Name: TAYLERBrooke ADONAY Amanda Age: 67 Years Arrival Date: 12/09/2022 10:21:17 Discharge Diagnosis: Injury of right index finger; Injury of tendon of intrinsic muscle of finger Primary Care Physician: CLAUDINE SOLORIO CNP Provider Information Primary Provider: Advanced Weather Teacher:None The exam and treatment you received in the Emergency Department were for an urgent problem and are not intended as complete care. It is important that you follow up with a doctor, nurse practitioner, or physician?s clinical trials assistant for ongoing care. If your symptoms [...] Instructions: With: Address: When: Sammy Jones [address] [place] [address] [employer] (1) In 3 days 12/12/2022 Comments: Follow-up with Dr. jones for further evaluation of your right index finger pain. With: Address: When: CLAUDINE SOLORIO [address] [place] [phone] [employer] (1) In 3 days In the event that this physician does not participate in your insurance network, please consult with your insurance company to find a nearby participating provider. Patient Education Materials: Crush Injury of the Hand, Jqny-tm-Lnoe; Contusion, Prfx-ab-Ectm A MESSAGE TO ALL PATIENTS REGARDING OPIOIDS PRESCRIPTION OPIOIDS: WHAT YOU NEED TO KNOW Prescription opioids can be used to help relieve hylxyqzx-gg-axgvzn pain and are often prescribed following a [...] and Drug Administration (www.fda.gov/Drugs/Re sourcesForYou). ? Visit [employer] (more content not included)... [facility] XR Finger(s) Min 2 Views [facility] 12-09-2022 XR Finger(s) Min 2 Views [...] mGy = na DAP = na [facility] Albumin [Mass/volume] in Ser um or PlasmaOrdered By: [facility] on 02-11-2022 Albumin [Mass/Vol] 4.0 g/dL 3.2-5.5 [facility] Cholesterol [Mass/volume] in Serum or PlasmaOrdered By: [facility] on 02-11-2022 Cholesterol [Mass/Vol] 193 mg/dL 140-200 [facility] Comment on above: Chol less than 200 m g/dl low riskChol 201-239 mg/dl borderline riskChol 240 mg/dl and greater high risk Cholesterol in LDL Calc [Mas s/Vol]Ordered By: [facility] on 02-11-2022 Cholesterol in LDL [Mass/Vol] 127 mg/dL 0-100 [facility] Comment on above: LDL ATP III CLASSIFI CATIONLDL less than 100 mg/dL OptimalLDL 100-129 mg/dL Near or above optimalLDL 130-159 mg/dL Borderline highLDL 160-189 mg/dL HighLDL greater than 189 mg/dL Very high Cholesterol in VLDL Calc [Ma ss/Vol]Ordered By: [facility] on 02-11-2022 Cholesterol in VLDL [Mass/Vol] 9 mg/dL [facility] Creatinine and Glomerular fi ltration rate.predicted panel (S/P/Bld)Ordered By: [facility] on 02-11-2022 Creatinine [Mass/Vol] 1.27 mg/dL 0.64-1.27 [facility] Erythrocyte distribution wid th Auto (RBC) [Ratio]Ordered By: [facility] on 02-11-2022 Erythrocyte distribution width (RBC) [Ratio] 12.7 % 12.0-14.8 [facility] Estimated glomerular filtrat ion rate (GFR) non- AmericanOrdered By: [facility] on 02-11-2022 GFR/1.73 sq M.predicted among non-blacks MDRD (S/P/Bld) [Vol rate/Area] 57 mL/Min [facility] Hematocrit Auto (Bld) [Volum e fraction]Ordered By: [facility] on 02-11-2022 Hematocrit (Bld) [Volume fraction] 41.5 % 38.8-50.0 [facility] Hemoglobin [Mass/volume] in BloodOrdered By: [facility] on 02-11-2022 Hemoglobin (Bld) [Mass/Vol] 13.9 g/dL 13.0-17.0 [facility] MCH Auto (RBC) [Entitic mass ]Ordered By: [facility] on 02-11-2022 MCH (RBC) [Entitic mass] 31.9 pg 27.5-35.2 [facility] MCHC Auto (RBC) [Mass/Vol]Or dered By: [facility] on 02-11-2022 MCHC (RBC) [Mass/Vol] 33.6 g/dL 32.5-35.6 [facility] MCV Auto (RBC) [Entitic vol] Ordered By: [facility] on 02-11-2022 MCV (RBC) [Entitic vol] 95.0 fL 83.5-101 [facility] No Panel InformationOrdered By: [facility] on 02-11-2022 Estimated GFR () > 60 mL/Min [facility] Comment on above: GFR estimated refere nce range: According to KDOQI guidelines, <60 ml/min/1.73m2 is sufficient to diagnose a patient with chronic kidney disease. Pharmacy Creatinine Clearance (Chem N/A [facility] Triglycerides Reflex 47 mg/dL 35-149 [facility] Comment on above: TRIG ATP III CLASSIF ICATIONTRIG less than 150 mg/dL NormalTRIG 150-199 mg/dL Borderline highTRIG 200-500 mg/dL High TRIG greater than 500 mg/dL Very highStandard traceable to the Center for Disease Conrtrol and Prevention (CDC) test method. Platelet mean volume Auto (B ld) [Entitic vol]Ordered By: [facility] on 02-11-2022 Platelet mean volume (Bld) [Entitic vol] 8.5 fL 6.6-10.1 [facility] Platelets Auto (Bld) [#/Vol] Ordered By: [facility] on 02-11-2022 Platelets (Bld) [#/Vol] 233 10*3/uL 150-450 [facility] Prostate specific Ag [Mass/v olume] in Serum or PlasmaOrdered By: [facility] on 02-11-2022 Prostate specific Ag [Mass/Vol] 0.610 ng/mL 0.000-4.000 [facility] Protein [Mass/volume] in Ser um or PlasmaOrdered By: [facility] on 02-11-2022 Protein [Mass/Vol] 5.7 g/dL 6.1-7.9 [facility] RBC Auto (Bld) [#/Vol]Ordere d By: [facility] on 02-11-2022 RBC (Bld) [#/Vol] 4.36 10*6/uL 3.90-5.60 [facility] Serum or plasma alanine moon otransferase measurement without P-5'-P (enzymatic activiOrdered By: [facility] on 02-11-2022 ALT No additional P-5'-P [Catalytic activity/Vol] 19 U/L 10-60 [facility] Serum or plasma alkaline tye sphatase measurement (enzymatic activity/volume)Ordered By: [facility] on 02-11-2022 ALP [Catalytic activity/Vol] 68 U/L 32-92 [facility] Serum or plasma anion gap de terminationOrdered By: [facility] on 02-11-2022 Anion gap [Moles/Vol] 10.2 mmol/L 6.0-15.0 [facility] Serum or plasma aspartate am inotransferase measurement (enzymatic activity/volume)Ordered By: [facility] on 02-11-2022 AST [Catalytic activity/Vol] 24 U/L 10-42 [facility] Serum or plasma calcium yajaira urement (mass/volume)Ordered By: [facility] on 02-11-2022 Calcium [Mass/Vol] 9.5 mg/dL 8.2-10.2 [facility] Serum or plasma chloride anupama surement (moles/volume)Ordered By: [facility] on 02-11-2022 Chloride [Moles/Vol] 105 mmol/L 95-114 [facility] Serum or plasma glucose yajaira urement (mass/volume)Ordered By: [facility] on 02-11-2022 Glucose [Mass/Vol] 87 mg/dL 70-100 [facility] Comment on above: ADA recommended refe rence rangeRandom Glucose Reference Range is dependent on time and content of last meal. Glucose of more than 200 mg/dL in a nonstressed, ambulatory subject supports the diagnosis of Diabetes Mellitus. Serum or plasma high density lipoprotein (HDL) cholesterol measurementOrdered By: [facility] on 02-11-2022 Cholesterol in HDL [Mass/Vol] 57 mg/dL 29- [facility] Comment on above: HDL CHOL ATP-III CLA SSIFICATION Cardiovascular RiskHDL > or equal to 60 mg/dL LOWHDL < 40 mg/dL HIGH Serum or plasma potassium me asurement (moles/volume)Ordered By: [facility] on 02-11-2022 Potassium [Moles/Vol] 4.1 mmol/L 3.5-5.1 [facility] Serum or plasma sodium measu rement (moles/volume)Ordered By: [facility] on 02-11-2022 Sodium [Moles/Vol] 138 mmol/L 136-146 [facility] Serum or plasma total biliru bin measurement (mass/volume)Ordered By: [facility] on 02-11-2022 Bilirubin [Mass/Vol] 1.0 mg/dL 0.3-1.2 [facility] Serum or plasma total carbon dioxide measurement (moles/volume)Ordered By: [facility] on 02-11-2022 CO2 [Moles/Vol] 26.9 mmol/L 22.0-30.0 [facility] Serum or plasma total choles terol/high density lipoprotein (HDL) cholesterol mass ratOrdered By: [facility] on 02-11-2022 Cholesterol.total/Stephanie sterol in HDL [Mass ratio] 3.4 {ratio} <5.0 [facility] Serum or plasma urea nitroge n measurement (mass/volume)Ordered By: [facility] on 02-11-2022 Urea nitrogen [Mass/Vol] 15 mg/dL 12-30 [facility] WBC Auto (Bld) [#/Vol]Ordere d By: [facility] on 02-11-2022 WBC (Bld) [#/Vol] 4.5 10*3/uL 4.1-10.5 [facility] Covid-19 PCR (CVDTBH)on SARS-CoV-2 (COVID-19) RNA LINDA+probe Ql (Unsp spec) Not detected Normal NOT DETECTED [facility] Hospital Comment on above: Result Comment: This test is not yet approved or cleared by the [place] FDA. When there are no FDA-approved or cleared tests available, and other criteria are met, FDA can make tests available under an emergency access mechanism called an Emergency Use Authorization (EUA). The EUA for this test is supported by the Body Die Maker of Health and Human Service's (HHS's) declaration [...] consistent with SARS-CoV-2. Performed By: #### [facility] #### [facility] [address] [address] [address] Leyda Chaudhry Encounters Encounter Date Encounter Type Care Provider Facility Start: 04-14-2024 End: 04-14-2024 ambulatory Sonia Martinez [facility] Work Phone: Start: 04-14-2024 End: 04-14-2024 Departed Referred Sonia Martinez DPM Work Phone: [facility] Start: 12-19-2023 End: 03-31-2024 ambulatory SONIA MARTINEZ Facility:[facility] Start: 12-05-2023 End: 12-05-2023 ambulatory Juan TERRAZAS Facility:[facility] Start: 11-29-2023 End: 11-29-2023 ambulatory JUAN TERRAZAS [facility] Start: 03-23-2023 End: 03-23-2023 ambulatory PULMONARY FELLOW-C Yoli Martínez Work Phone: [facility] Work Phone: Start: 03-23-2023 End: 03-23-2023 Departed Referred PULMONARY FELLOW-C Yolidae Martínez Work Phone: [facility] Main [place] Work Phone: Start: 12-09-2022 End: 12-09-2022 Emergency department patient visit Bandar Castillo Facility:[facility] Start: 06-30-2022 ambulatory Facility:1 9637 Start: 02-11-2022 End: 02-11-2022 ambulatory NON STAFF [facility] Work Phone: Start: 02-11-2022 End: 02-11-2022 Departed Referred [facility] Work Phone: [facility] Start: 04-12-2021 End: 04-12-2021 ambulatory CLAUDINE DELGADILLO Facility: Plan of Treatment Date Care Activity Detail Author Start: 03-23-2023 Superficial Wound Culture Superficial Wound Culture [facility] Payers Date Payer Category Payer Self-pay [id number] 2022 Private Health Insurance [id number] 1958 Medicare [id number] 1959 Private Health Insurance CLI [id number] 1955 Unknown [id number] 1955 Unknown [id number] 1955 Unknown [id number] 1955 Unknown [id number] 1955 Unknown [id number] 1955 Unknown [id number] [facility] Health [email or web address] [id number] Unknown Unknown [id number] Social History Date Type Detail [facility] Work Phone: Start: 1955 Sex Assigned At Male [facility] Work Phone: Start: 04-15-2024 Sex Male (finding) [facility] Evaluation note Note Date & Type Note Facility Evaluation note No assessment information availa ble [facility] Work Phone: Summary Purpose [...] DATE CREATED AUTHOR AUTHOR'S ORGANIZ ATION 08/19/2022 [facility] DATE CREATED AUTHOR AUTHOR'S ORGANIZ ATION [facility]/01/2023 [facility] DATE CREATED AUTHOR AUTHOR'S ORGANIZ ATION [facility]20[facility] DATE CREATED AUTHOR AUTHOR'S ORGANIZ ATION 04/02/2024 [facility] DATE CREATED AUTHOR AUTHOR'S ORGANIZ ATION 04/20/2024 [facility] Care Teams (unrecognized sec tion [...] BE BASED ON THE PRIMARY CLINICAL RECORDS. [facility]. provides no warranty or guarantee of the accuracy or completeness of information in this document.
== END 2024-09-25 10:02 | disposition home or self-care (01) ==
PROVIDERS: PCP Family Medicine; Visit Provider Podiatrist Foot & Ankle Surgery
DX: M79.671 Pain in right foot (principal); Z98.890 Other specified postprocedural states
CPT/HCPCS: 73630

== ENCOUNTER 2025-01-05 14:12 | Outpatient (OUT) | payer MEDICARE, SELFPAY ==
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
--- OUTSIDE RECORDS SUMMARY | 2025-01-05 14:15 | XMS_ITS | Clinical Summary ---
Author Organization [facility] Address [address] [place] [address] Care Team Providers Care Shingle Bolt Cutter Name Role Phone Joselin Gould MD Unavailable [phone] Allergies Active Allergy Reactions Criticality Noted Date [...] primary osteoarthritis of left wrist 0 09/20/2022 Encounters Date Type Department Care Team Description 12/02/2024 10:15 AM EDT Office Visit [facility] [address] [place] [id number] Terrell Martinez DO Right wrist pain (Primary Dx); De Quervain's tenosynovitis; [facility] arthritis 12/02/2024 8:00 AM EDT Ancillary Procedure [facility] [address] [place] [address] 12/02/2024 Travel 11/25/2024 Travel from Last 3 Months Family History Medical History Relation Name Comments Cancer Father father Heart disease Father father Relation Name Status Comments Father father Paternal Grandfather Sibling Social History Tobacco Use Types Packs/Day Years Used Date Smoking Tobacco: Never Smokeless Tobacco: Never Tobacco Cessation:Counseling Given: Not Answered Alcohol Use Standard Drinks/Week Comments Not Currently 0 (1 standard drink = 0.6 oz [...] - Inhaled Oxygen Concentration - - Weight 80.3 kg (177 lb) 12/02/2024 10:09 AM EDT Height 177.8 cm (5' 10 ) 12/02/2024 10:09 AM EDT Body Mass Index 25.4 12/02/2024 10:09 AM EDT Plan of Treatment Not on file Procedures Procedure Name Priority Date/Time Associated Diagnosis Comments MEDIUM JOINT ARTHROCENTESIS Routine 12/02/2024 11:10 AM EDT Right wrist pain XR WRIST 3+ VIEWS RIGHT Routine 12/03/19 7:54 AM EDT Right wrist pain from Last 3 Months Results * M Inj/Asp (12/02/2024 11:10 AM EDT) Narrative Bridget Sorensen MA - 12/02/2024 11:10 AM EDT Bridget Sorensen MA 12/02/2024 2:08 PM M Inj/Asp on 12/02/2024 11:10 AM Indications: pain Details: 25 G needle, ultrasound-guided Medications: 1 mL betamethasone acetate-betamethasone sodium phosphate 6 (3-3) MG/ML us Terrell Martinez DO IN CLINIC/BEDSIDE ORDERABLES Final Result * XR wrist 3+ views right (12/02/2024 7:54 AM EDT) Anatomical Region Laterality Modality Upper Extremities, Wrist Right Radiogr aphic Imaging Narrative 12/02/2024 1:12 PM EDT Imaging Result: Multiple view x-ray of the right hand and wrist shows 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 There is also zlkc-dt-occfwyvr osteoarthritic changes of the digits. Alignment is maintained. No fracture, dislocation, tumor, infection seen. us Terrell Martinez DO IMG XR PROCEDURES Final Resu lt from Last 3 Months Insurance MEDICARE AET Care Teams Shingle Bolt Cutter Relationship Specialty Start Date End Date Joselin Gould MD [address] [place] [id number] Primary Care Provider Family Medicine 12/14/22
--- OUTSIDE RECORDS SUMMARY | 2025-01-05 14:15 | XMS_ITS | Clinical Summary ---
Author Organization [facility] Address [address] [place] [address] Phone Care Team Providers Care Coke Oven Patcher Name Role Phone Unavailable Primary Care Provider [...] 1955 Sigmoidoscopy 1955 Yearly Adult Physical 1955 MMR Vaccines (1 of 1 - Stand purnima series) 01[birth year]08/1956 Hepatitis C Screening 01/08/1974 DTaP/Tdap/Td Vaccines (1 - Tdap) 01/08/1978 PSA Prostate Cancer Screening 01/08/2006 Pneumococcal Vaccine (1 of 1 - PCV) 01/08/2006 Zoster Vaccines (1 of 2) 01/08/2006 COVID-19 Vaccine (1 - 2023-2 5 season) 2024 Influenza Vaccine (#1) 2024 RSV High Risk: (Elderly (60+ ) [...]
--- OUTSIDE RECORDS SUMMARY | 2025-01-05 14:15 | XMS_ITS | Clinical Summary ---
Author Organization [facility] Address [address] [place] [id number] Care Team Providers Care Performance Makeup Artist Name Role Phone Francois Mendez Primary Care [...] Other synovitis and tenosynovitis 07/17/2013 Overview (07/17/2013): [facility] Contusion of elbow 08/20/2012 Overview (07/17/2013): [facility] Lesion of ulnar nerve 08/20/2012 Overview (07/17/2013): [facility] Brachial neuritis or radiculitis 08/20/2012 Overview (07/17/2013): [facility] Lateral epicondylitis 08/20/2012 Overview (07/17/2013): [facility] Synovitis and tenosynovitis 08/20/2012 Family History Medical [...] 01/08/2006 Shingrix Vaccine (1 of 2) 01/08/2006 Advance Directive Discussion 04/09/2024 Influenza Vaccine (#1) 2024 RSV Vaccine (1 - 1-dose 75+ series) 01/08/2031 Medical Devices Implanted Type Area Newspaper Editor Device Identifier Shelf Expiration Date Model / Serial / Lot [id number] 7mm Axoguard Tiss 40mm - [id number] Implanted:Qty: 1 on 12/27/2012 at [facility] Implant Right: Bone - Elbow AXOGEN 05/09/2014 [id number] / / [id number] Insurance [facility] Care Teams Performance Makeup Artist Relationship Specialty Start Date End Date Francois Mendez [address] [place] [address] PCP - General 07/19/00
--- OUTSIDE RECORDS SUMMARY | 2025-01-05 14:15 | XMS_ITS | Encounter Summary ---
Author Organization [facility] Address [address] [place] [address] Care Team Providers Care Coil Tester Name Role Phone Joselin Gould MD Unavailable [phone] Encounter Details Date Type Department Care Team ([facility] st Contact Info) Description 12/10/2022 Abstract [facility] [address] [place] [address] Cresencio Singletary, DPM FACFAS [address] [place] [id number] Social History Tobacco Use Types Packs/Day Years [...] on filedocumented in this encounter Care Teams Coil Tester Relationship Specialty Start Date End Date Joselin Gould MD [address] [place] [place], [place] [id number] Primary Care Provider Family Medicine 12/14/22 documented as of this encounter
--- NOTE | 2025-01-05 14:23 | ECG_ITS ---
[facility] Test Date: 2025-01-05 Pat Name: ADONAY MITCHELL Department: Room: - Gender: Male Child Nurse: : [id number] Requested By: SONIA MAYNARD Order Number: [id number] Reading MD: MARGARITO CERRATO Measurements Intervals [place] Rate: 65 P: 64 [place]: 152 QRS: 39 QRSD: 108 T: 56 QT: 390 QTc: 406 Interpretive Statements SINUS RHYTHM Compared to ECG 03/27/2024 09:28:11 No significant changes Electronically Signed On 01-05-2025 15:32:33 EDT by MARGARITO CERRATO
== END 2025-01-05 14:13 | disposition home or self-care (01) ==
LOC: PST 14:13
PROVIDERS: PCP Family Medicine; Visit Provider Podiatrist Foot & Ankle Surgery
DX: Z01.810 Encounter for preprocedural cardiovascular examination (principal); T84.098A Other mechanical complication of other internal joint prosthesis, initial encounter
CPT/HCPCS: 93005

== ENCOUNTER 2025-01-13 06:07 | Day surgery (SDC) | payer MEDICARE, SELFPAY ==
[2025-01-05 14:31] VITALS: BP 133/83; PULSE 71; TEMP 36.6; O2SAT 98; BMI 24.7
[2025-01-13] VITALS (12 sets, daily range): BP systolic 112–137; BP diastolic 70–86; PULSE 65–76; TEMP 36.1–36.3; O2SAT 16–99; BMI 23.8
--- OUTSIDE RECORDS SUMMARY | 2025-01-13 06:10 | XMS_ITS | CCD ---
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 Role Phone JOSELIN DELGADILLO Attending Unavailable JOSELIN DELGADILLO Consulting JOSELIN Huitron Admitting Unavailable [facility], Outreach Attending Provider NON STAFF Primary Care Provider EMILIO Hernandez Attending Provider [phone] JUAN TRERAZAS Primary Care Unavailable JUAN TERRAZAS Referring Unavailable Juan TERRAZAS Admitting Unavailable Juan TERRAZAS Attending Unavailable Bandar Castillo Attending Unavailable Sonia Martinez DPM Attending Provider Sonia Martinez Attending Sonia Snatacruz Admitting SONIA Santacruz Attending Unavailable SONIA MARTINEZ Referring Unavailable Juan TERRAZAS Admitting Unavailable Juan TERRAZAS Attending Unavailable Yoko Lynn Attending Unavailable Joselin Solorio MD Unavailable LUIS ARMANDO DRAPER Referring LUIS ARMANDO Montoya Attending Marti Allergies Allergy Classification Reported Allergen(s) Allergy Type Date of Onset Reaction(s) Facility (4 sources) Codeine; Translations: [codeine] Drug Allergy 12-20-2012 [facility] Repository Medications Completed/Discontinued Medications Medication Drug Class(es) Dates Sig (Normalized) Sig (Original) betamethasone 3 mg/ml / betamethasone acetate 3 mg/ml injectable suspension (4 sources) Corticosteroid Start: 12-02-2024 End: 12-02-2024 betamethasone acetate-betamethason e sodium phosphate (Celestone) injection 1 mL Start: 12-02-2024 End: 12-02-2024 1 mL, Intra-articular, Once PRN Procedure, Starting on Sun12/02/24 at 1110, For 1 dose ciprofloxacin 3 mg/ml ophthalmic solution (2 sources) Quinolone Antimicrobial Start: 10-31-2024 End: 12-02-2024 take 2 drop(s) into the eye(s) four times daily ciprofloxacin (Ciloxan) 0.3 % ophthalmic solution 2 DROP(S) OPTH FOUR TIMES DAILY,X5 DAY(S),INSTR:LEFT EYE 10/31/2024 12/02/2024 Discontinued (Therapy completed) meloxicam 15 mg oral tablet (2 sources) Nonsteroidal Anti-inflammatory Drug End: 12-02-2024 take 1 tablet by mouth once daily meloxicam (Mobic) 15 MG tablet Take 15 mg by mouth Daily 12/02/2024 Discontinued (Therapy completed) triamcinolone acetonide 1 mg/ml topical cream (2 sources) Corticosteroid Start: 11-25-2024 End: 12-02-2024 triamcinolone (Kenalog) 0.1 % cream PLEASE SEE ATTACHED FOR DETAILED DIRECTIONS 11/25/2024 12/02/2024 Discontinued (Therapy completed) Problems Active Problems Problem Classification Problem Date Documented Date Episodic/Chronic Headache; including migraine (1 source) Headache; including migraine; Translations: [HEADACHE UNSPECIFIED] Onset: 04-17-2021 Osteoarthritis (4 sources) Arthropathy of joint of hand; Translations: [Primary osteoarthritis, unspecified hand] Onset: 09-20-2022 12-02-2024 Chronic Other connective tissue disease (1 source) Pain in right foot; Translations: [Pain in right foot] Onset: 11-29-2023 Episodic Other connective tissue disease (2 sources) Radial styloid tenosynovitis; Translations: [Radial styloid tenosynovitis [de Quervain]] 12-02-2024 Episodic Other non-traumatic joint disorders (4 sources) Pain of right wrist; Translations: [Pain in right wrist] 12-02-2024 Episodic Other upper respiratory infections (1 source) Acute pharyngitis, unspecified; Translations: [ACUTE PHARYNGITIS UNSPECIFIED] Onset: 04-17-2021 Episodic Unclassified (3 sources) CONTACT W/AND (SUSP) EXPOS COVID-19; Translations: [CONTACT W/AND (SUSP) EXPOS COVID-19] Onset: 04-17-2021 Unclassified (1 source) COUGH, UNSPECIFIED; Translations: [COUGH, UNSPECIFIED] Onset: 04-17-2021 Past or Other Problems Problem Classification Problem Date Documented Date Episodic/Chronic Sprains and strains (2 sources) Triangular fibrocartilage tear; Translations: [Other specified sprain of left wrist, initial encounter] Onset: 09-20-2022 09-20-2022 Episodic Superficial injury; contusion (4 sources) Contusion of right middle finger; Translations: [Contusion of right middle finger without damage to nail, initial encounter] Onset: 12-18-2022 12-18-2022 Episodic Unclassified (1 source) CONTACT W/AND (SUSP) EXPOS COVID-19; Translations: [CONTACT W/AND (SUSP) EXPOS COVID-19] Onset: 04-12-2021 Results Test Name Value Interpretation Reference Range Facility No Panel Informationon 12-02 Bridget Sorensen MA 12/02/2024 2:08 PM M Inj/Asp on 12/02/2024 11:10 AM Indications: pain Details: 25 G needle, ultrasound-guided Medications: 1 mL betamethasone acetate-betamethasone sodium phosphate 6 (3-3) MG/ML [facility] XR Wrist - right 3 Viewson 0 12-02-2024 Imaging Result: Multiple view x-ray of the right hand and wrist shows 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 There is also ixdu-cd-waflyhgk osteoarthritic changes of the digits. Alignment is maintained. No fracture, dislocation, tumor, infection seen. [facility] Radiology Study observation (narrative) [facility] Ambulatory Visit Summaryon 0 10-31-2024 Ambulatory Visit Summary Ambulatory Visit Summary ADONAY MITCHELL :1955 Visit Date:10/31/2024 Ambulatory Visit Instructions Your Care Team Attending Physician - Leah JONES, Shilpa Primary Care Physician - Juan TERRAZAS DO [...] signed up for this yet, please contact [employer] at [phone] to get signed up today. Language Information Language assistance services are available as needed. Normal [facility] Family Medicine Office/Clini c Noteon 10-31-2024 Family Medicine Office/Clinic Note Family Medicine Office/Clinic Note Chief Complaint left eye irritation HPI [...] with voice recognition software. Occasional wrong-word or ???agfna-l-vahm??? substitutions may have occurred due to the [...] rinsing out. He has not used any rabd-rka-fgxcrwb medications. Review of Systems PHQ Score Initial [...] 5 mL, Refill(s) 0, LEFT eye, [id number], 180, cm, 10/31/24 16:57:00 EDT, Height/Length Dosing, 81.5, kg, 10/31/24 16:57:00 EDT, Weight Dosing Follow-up With When Contact Information Juan TERRAZAS DO [address] [facility] [place] [address]- [phone] Additional Instructions: Patient Education Corneal Abrasion, Kjot-lp-Daqo Problem List/Past Medical History Ongoing Contusion of [...] Date Status diphtheria/pertussis, acel/tetanus adult 12/09/2016 Recorded Normal [facility] Comment on above: Result Comment: Elec tronically Signed By: Leah JONES, Shilpa\.br\Date and Time Signed: 10/31/24 17:15 EDT Pathology study report docum entOrdered By: Yesenia Soriano on 04-16-2024 Pathology study [facility] Other Phone: Ruben 04-14-2024 L - -------- Specimen: [id number] Received: 04/14/24 Status: NIA Cordon Num: [id number] Spec Type: Surgical Subm Dr: Sonia Martinez,[place], [place] Tissues: A Bone Fragments - Other than Path Fracture Procedures: HE -------- Age/ Patient Sex Location Account Attending Physician -------- Adonay Mitchell 69/M LABELL [id number] Sonia Martinez DPM, -------- SPEC NUM: [id number] RECD: 04/14/24 STATUS: NIA CORDON NUM: [id number] MICHAEL: 04/14/[address] [facility] [address]: Sonia Martinez DPM, [place] ENTERED: 04/14/[address] [facility] [address]: Madie,Lab SPEC TYPE: Surgical DEPT: [facility] ENTERED BY: [id number] RECV BY: [id number] ORDERED: HE ORDERED: HE Pathological Diagnosis Right [...] reveal juárez-peterson, firm and uniform cut surfaces. Heading Up Machine Operator sections are submitted in a single cassette after decalcification. (1, , [id number]) CPT Codes 13633 -------- -------- Specimen: [id number] Received: 04/14/24 Status: NIA Cordon Num: [id number] Spec Type: Surgical Subm Dr: Sonia Martinez,[place], [place] Tissues: A Bone Fragments - Other than Path Fracture Procedures: HE -------- Patient: Adonay Mitchell [id number] (Continued) -------- Signed (signature on file) Yesenia Soriano MD 04/16/24 1333 Normal [facility] Nonvisit Note - PTon 024 Nonvisit Note - PT Nonvisit Note - PT Called and spoke with patient's about the ionto situation and hopeful for approval on 12-28-23. She is going to call the pharmacy to see if the medication is ready and call back to schedule. KK Normal [facility] Nonvisit Note - PTon 024 Nonvisit Note - PT Nonvisit Note - PT chart reviewed with eval prepped for scheduled eval. KK. Normal [facility] CBC w/ Auto Diffon 4 Basophils/100 WBC (Bld) 0.6 % Normal 0.0-2.0 [facility] Comment on above: Performed By: #### 2 [id number] #### [facility] [address] [place] [address] Basophils/Leukocytes Auto (Bld) [Pure # fraction] 0.0 E9/L Normal 0.0-0.2 [facility] Comment on above: Performed By: #### 2 [id number] #### [facility] [address] [place] [address] Eosinophils (Bld) [#/Vol] 0.0 E9/L Normal 0.0-0.5 [facility] Comment on above: Performed By: #### 2 [id number] #### [facility] [address] [place] [address] Eosinophils/100 WBC (Bld) 0.5 % Normal 0.0-8.0 [facility] Comment on above: Performed By: #### 2 [id number] #### [facility] [address] [place] [address] Erythrocyte distribution width (RBC) [Ratio] 12.6 % Normal 10.9-14.2 [facility] Comment on above: Performed By: #### 2 [id number] #### [facility] [address] [place] [address] Hematocrit (Bld) [Volume fraction] 41.6 % Normal 37.7-49.0 [facility] Comment on above: Performed By: #### 2 305489 #### [facility] [address] [place] [address] Hemoglobin (Bld) [Mass/Vol] 14.7 g/dL Normal 13.5-17.5 [facility] Comment on above: Performed By: #### 2 754855 #### [facility] [address] [place] [address] Lymphocytes (Bld) [#/Vol] 1.5 E9/L Normal 1.0-4.0 [facility] Comment on above: Performed By: #### 2 186394 #### [facility] [address] [place] [address] Lymphocytes/100 WBC (Bld) 23.2 % Normal 14.0-50.0 [facility] Comment on above: Performed By: #### 2 537863 #### [facility] [address] [place] [address] MCH (RBC) [Entitic mass] 33.0 pg Normal 27.0-34.0 [facility] Comment on above: Performed By: #### 2 530157 #### [facility] [address] [place] [address] MCHC (RBC) [Mass/Vol] 35.4 g/dL Normal 31.4-36.0 [facility] Comment on above: Performed By: #### 2 416653 #### [facility] [address] [place] [address] MCV (RBC) [Entitic vol] 93.3 fL Normal 80.0-100.0 [facility] Comment on above: Performed By: #### 2 573512 #### [facility] [address] [place] [address] Monocytes (Bld) [#/Vol] 0.5 E9/L Normal 0.2-1.0 [facility] Comment on above: Performed By: #### 2 [id number] #### [facility] [address] [place] [address] [place] [address] Neutrophils (Bld) [#/Vol] 4.2 E9/L Normal 2.0-7.5 [facility] Comment on above: Performed By: #### 2 556690 #### [facility] [address] [place] [address] Neutrophils/100 WBC (Bld) 67.3 % Normal 36.0-75.0 [facility] Comment on above: Performed By: #### 2 598355 #### [facility] [address] [place] [address] Platelet 223.0 E9/L Normal 150.0-500.0 [facility] Comment on above: Performed By: #### 2 547148 #### [facility] [address] [place] [address] Platelet mean volume (Bld) [Entitic vol] 7.7 fL Normal 6.4-10.8 [facility] Comment on above: Performed By: #### 2 157323 #### [facility] [address] [place] [address] RBC (Bld) [#/Vol] 4.5 E12/L Normal 4.3-5.9 [facility] Comment on above: Performed By: #### 2 719071 #### [facility] [address] [place] [address] WBC corrected for nucl RBC Auto (Bld) [#/Vol] 6.3 E9/L Normal 4.0-11.0 [facility] Comment on above: Performed By: #### 2 961808 #### [facility] [address] [place] [address] CMPon 12-05-2023 Albumin [Mass/Vol] 4.5 g/dL Normal 3.3-5.0 [facility] Comment on above: Performed By: #### 2 100103 #### [facility] [address] [place] [address] Albumin/Globulin (S) [Mass conc ratio] 2.3 High 1.1-2.2 [facility] Comment on above: Performed By: #### 2 942699 #### [facility] [address] [place] [address] ALP [Catalytic activity/Vol] 72 Int._Unit/L Normal 21-98 [facility] Comment on above: Performed By: #### 2 513802 #### [facility] [address] [place] [address] ALT No additional P-5'-P [Catalytic activity/Vol] 13 Int._Unit/L Normal 6-46 [facility] Comment on above: Performed By: #### 2 233143 #### [facility] [address] [place] [address] Anion gap [Moles/Vol] 9 mmol/L Normal 6-16 [facility] Comment on above: Performed By: #### 2 392652 #### [facility] [address] [place] [address] AST [Catalytic activity/Vol] 18 Int._Unit/L Normal 5-43 [facility] Comment on above: Performed By: #### 2 432673 #### [facility] [address] [place] [address] Bilirubin [Mass/Vol] 1.0 mg/dL Normal 0.0-1.1 [facility] Comment on above: Performed By: #### 2 788828 #### [facility] [address] [place] [address] Calcium [Mass/Vol] 9.2 mg/dL Normal 8.9-11.1 [facility] Comment on above: Performed By: #### 2 302746 #### [facility] [address] [place] [address] Chloride [Moles/Vol] 105 mmol/L Normal 101-111 [facility] Comment on above: Performed By: #### 2 136115 #### [facility] [address] [place] [address] CO2 [Moles/Vol] 28 mmol/L Normal 21-31 [facility] Comment on above: Performed By: #### 2 602059 #### [facility] [address] [place] [address] Creatinine [Mass/Vol] 1.3 mg/dL Normal 0.5-1.3 [facility] Comment on above: Performed By: #### 2 982135 #### [facility] [address] [place] [address] Globulin (S) [Mass/Vol] 2.0 g/dL Normal 1.4-4.0 [facility] Comment on above: Performed By: #### 2 702664 #### [facility] [address] [place] [address] Glucose [Mass/Vol] 92 mg/dL Normal 55-199 [facility] Comment on above: Performed By: #### 2 297322 #### [facility] [address] [place] [address] Potassium [Moles/Vol] 4.0 mmol/L Normal 3.5-5.3 [facility] Comment on above: Performed By: #### 2 786504 #### [facility] [address] [place] [address] Protein [Mass/Vol] 6.5 g/dL Normal 6.0-7.8 [facility] Comment on above: Performed By: #### 2 077245 #### [facility] [address] [place] [address] Sodium [Moles/Vol] 138 mmol/L Normal 135-145 [facility] Comment on above: Performed By: #### 2 051114 #### [facility] [address] [place] [address] Urea nitrogen [Mass/Vol] 19 mg/dL Normal 5-21 [facility] Comment on above: Performed By: #### 2 350674 #### [facility] [address] [place] [address] Urea nitrogen/Creatinine [Mass ratio] 15 No Units Normal 10-20 [facility] Comment on above: Performed By: #### 2 639920 #### [facility] [address] [place] [address] Lipid Panelon 12-05-2023 Cholesterol [Mass/Vol] 206 mg/dL High 120-200 [facility] Comment on above: Performed By: #### 2 302768 #### [facility] [address] [place] [address] Cholesterol in HDL [Mass/Vol] 52 mg/dL Invalid Interpretation Code [facility] Comment on above: Result Comment: '>= 60 LOW RISK' '<= 40 HIGH RISK' Performed By: #### 2 [id number] #### [facility] [address] [place] [address] Cholesterol in LDL [Mass/Vol] 133 mg/dL High <=129 [facility] Comment on above: Performed By: #### 2 009335 #### [facility] [address] [place] [address] Cholesterol in VLDL [Mass/Vol] 19 mg/dL Normal 7-40 [facility] Comment on above: Performed By: #### 2 322103 #### [facility] [address] [place] [address] Triglyceride [Mass/Vol] 97 mg/dL Normal <=149 [facility] Comment on above: Performed By: #### 2 [id number] #### [facility] [address] [place] [address] PSA Screen, Totalon 12-05-19 24 Prostate specific Ag [Mass/Vol] 0.8 ng/mL Normal 0.1-3.5 [facility] Comment on above: Result Comment: The concentration of PSA determined by different manufacturers can vary due to differences in assay methods and reagent specificity. Values obtained from different assay methods cannot be used interchangeably. The methodology used for this result was chemiluminescence using [employer] Access [employer] PSA reagent. Performed By: #### 1 [id number] #### [facility] [address] [place] [address] eGFRon 12-05-2023 eGFR 60 mL/min/1.73 m2 Normal >=59 [facility] Comment on above: Order Comment: Order added by Discern Expert. Performed By: #### 1 [id number] #### [facility] [address] [place] [address] XR FOOT RIGHT (MIN 3 VIEWS)o n [...] Odessa Pires MD 11/29/23 Final result Normal [facility] ED Note-Physicianon 01-02-20 ED Note-Physician Basic Information Time Seen: Tony VOGEL, Michel Seay 12/09/2022 10:25 Chief Complaint pt reports right [...] and Complexity of Problems Differential Diagnosis: [] [facility] Data External documents reviewed: [] My [...] Jones In 3 days 12/12/2022 EDT [address] [place] [address] Business (1) Additional Instructions: Follow-up with Dr. jones for further evaluation of your right index finger pain. JOSELIN SOLORIO In [address] [place] [phone] Business (1) Additional Instructions: Patient Education Crush Injury of the Hand, Oebx-fc-Vxbp Contusion, Aebs-ll-Aetx Attestation Patient seen and evaluated by the physician assistant professor of german. Attending physician was present in the emergency department and supervised care. This visit was performed by both the physician and an APC. I performed all aspects of the MDM as documented. This report was transcribed using voice recognition software. Every effort was made to ensure accuracy, however, inadvertently computerized rn ccu mistakes may be present. Appropriate healthcare PPE w (more content not included)... Normal [facility] Comment on above: Result Comment: Elec tronically Signed By: Michel Jimenez PA-C\.br\Date and Time Signed: 12/09/22 15:01 EDT\.br\Electronically Co-Signed By: Bandar Castillo MD\.br\Date and Time Co-Signed: 01/01/23 02:17 EDT Consent for Treatmenton Consent for Treatment [id number] .[id number]:127 Normal [facility] Discharge Instructionson Discharge Instructions [id number] .[id number]:127 Normal [facility] ED Clinical Summaryon 2022 ED Clinical Summary [address] [address] ED Clinical Summary Person Information Name: ADONAY MITCHELL Stacy/New_Onemo Age: 67 Years : 1955 Sex: Male Language: Thai PCP: JOSELIN SOLORIO CNP Marital Status: Phone: [phone] Visit Id: Visit Reason: Finger pain-swelling; Finger [...] 12/09/2022 11:57:51 12/09/2022 11:57:51 12/09/2022 11:57:51 ADDRESS: [facility] [id number] [facility] DOC NOTES: MEDICAL INFORMATION: Prescriptions Given: Medications to Continue with No Changes Other Medications acetaminophen-hydroco done (Milan 325 mg-5 mg oral tablet) 1-2 tab(s) Oral q4hr PRN Pain. Duration 7 days.; as needed for pain. Refills: 0. PATIENT EDUCATION INFORMATION: Instructions: Crush Injury of the Hand, Kugn-gi-Lhld; Contusion, Lwsw-gv-Jlzs Follow up: With: Address: When: Sammy Jones [address] [phone] Business (1) In 3 days 12/12/2022 Comments: Follow-up with Dr. jones for further evaluation of your right index finger pain. 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 ? Change your bandage as told by [...] by your doctor. General instructions ? Take egwy-kec-fepymrh and prescription medicines only as told by [...] given t (more content not included)... Normal [facility] ED Patient Summaryon 023 ED Patient Summary [facility] [address] [place], [place] [address] Patient Discharge Instructions Person Information Name: ADONAY MITCHELL Age: 67 Years Arrival Date: 12/09/2022 10:21:17 Discharge Diagnosis: Injury of right index finger; Injury of tendon of intrinsic muscle of finger Primary Care Physician: JOSELIN SOLORIO CNP Provider Information Primary Provider: Advanced Floor Director:None The exam and treatment you received in the Emergency Department were for an urgent problem and are not intended as complete care. It is important that you follow up with a doctor, nurse practitioner, or physician?s assistant professor of german for ongoing care. If your symptoms become [...] Instructions: With: Address: When: Sammy Jones [address] [phone] Business (1) In 3 days 12/12/2022 Comments: Follow-up with Dr. jones for further evaluation of your right index finger pain. With: Address: When: JOSELIN SOLORIO [address] [facility] [place] [phone] Business (1) In 3 days In the event that this physician does not participate in your insurance network, please consult with your insurance company to find a nearby participating provider. Patient Education Materials: Crush Injury of the Hand, Qavq-dq-Xzmv; Contusion, Jlyl-wf-Vqch A MESSAGE TO ALL PATIENTS REGARDING OPIOIDS PRESCRIPTION OPIOIDS: WHAT YOU NEED TO KNOW Prescription opioids can be used to help relieve zusvdtre-gg-kotuqx pain and are often prescribed following a [...] and Drug Administration (www.fda.gov/Drugs/Re sourcesForYou). ? Visit www.cd (more content not included)... Normal [facility] XR Finger(s) Min 2 Views Rig carenon 12-09-2022 XR Finger(s) Min 2 Views Right [...] mGy = na DAP = na Normal [facility] Albumin [Mass/volume] in Ser um or PlasmaOrdered By: [facility]RE[facility] COMMUNITY on 02-11-2022 Albumin [Mass/Vol] 4.0 g/dL 3.2-5.5 [facility] Cholesterol [Mass/volume] in Serum or PlasmaOrdered By: OUTREACH COMMUNITY on 02-11-2022 Cholesterol [Mass/Vol] 193 mg/dL 140-[address] [facility] Comment on above: Chol less than 200 m g/dl low riskChol 201-239 mg/dl borderline riskChol 240 mg/dl and greater high risk Cholesterol in LDL Calc [Mas s/Vol]Ordered By: [facility] on 02-11-2022 Cholesterol in LDL [Mass/Vol] 127 mg/dL 0-100 [facility] Comment on above: LDL ATP III CLASSIFI CATIONLDL less than 100 mg/dL OptimalLDL 100-129 mg/dL Near or above optimalLDL 130-159 mg/dL Borderline highLDL 160-189 mg/dL HighLDL greater than 189 mg/dL Very high Cholesterol in VLDL Calc [Ma ss/Vol]Ordered By: [facility]RE[facility] on 02-11-2022 Cholesterol in VLDL [Mass/Vol] 9 mg/dL [facility] Creatinine and Glomerular fi ltration rate.predicted panel (S/P/Bld)Ordered By: OUTREACH [facility] on 02-11-2022 Creatinine [Mass/Vol] 1.27 mg/dL 0.64-1.27 [facility] Erythrocyte distribution wid th Auto (RBC) [Ratio]Ordered By: [facility] on 02-11-2022 Erythrocyte distribution width (RBC) [Ratio] 12.7 % 12.0-14.8 [facility] Estimated glomerular filtrat ion rate (GFR) non- AmericanOrdered By: [facility] on 02-11-2022 GFR/1.73 sq M.predicted among non-blacks MDRD (S/P/Bld) [Vol rate/Area] 57 mL/Min [facility] Hematocrit Auto (Bld) [Volum e fraction]Ordered By: [facility] on 02-11-2022 Hematocrit (Bld) [Volume fraction] 41.5 % 38.8-50.0 [facility] Hemoglobin [Mass/volume] in BloodOrdered By: [facility] on 02-11-2022 Hemoglobin (Bld) [Mass/Vol] 13.9 g/dL 13.0-17.0 [facility] MCH Auto (RBC) [Entitic mass ]Ordered By: OUTREACH [facility] on 02-11-2022 MCH (RBC) [Entitic mass] 31.9 pg 27.5-35.2 [facility] MCHC Auto (RBC) [Mass/Vol]Or dered By: OUTREACH [facility] on 02-11-2022 MCHC (RBC) [Mass/Vol] 33.6 g/dL 32.5-35.6 [facility] MCV Auto (RBC) [Entitic vol] Ordered By: OUTREACH [facility] on 02-11-2022 MCV (RBC) [Entitic vol] 95.0 fL 83.5-101 F [facility] No Panel InformationOrdered By: OUTREACH [facility] on 02-11-2022 Estimated GFR () > 60 mL/Min [facility] Comment on above: GFR estimated refere nce range: According to KDOQI guidelines, <60 ml/min/1.73m2 is sufficient to diagnose a patient with chronic kidney disease. Pharmacy Creatinine Clearance (Chem N/A [facility] Triglycerides Reflex 47 mg/dL 35-149 [facility] Comment on above: TRIG ATP III CLASSIF ICATIONTRIG less than 150 mg/dL NormalTRIG 150-199 mg/dL Borderline highTRIG 200-500 mg/dL High TRIG greater than 500 mg/dL Very highStandard traceable to the Center for Disease Conrtrol and Prevention (CDC) test method. Platelet mean volume Auto (B ld) [Entitic vol]Ordered By: [facility] on 02-11-2022 Platelet mean volume (Bld) [Entitic vol] 8.5 fL 6.6-10.1 [facility] Platelets Auto (Bld) [#/Vol] Ordered By: [facility] on 02-11-2022 Platelets (Bld) [#/Vol] 233 10*3/uL 150-450 [facility] Prostate specific Ag [Mass/v olume] in Serum or PlasmaOrdered By: [facility] on 02-11-2022 Prostate specific Ag [Mass/Vol] 0.610 ng/mL 0.000-4.000 [facility] Protein [Mass/volume] in Ser um or PlasmaOrdered By: [facility] on 02-11-2022 Protein [Mass/Vol] 5.7 g/dL 6.1-7.9 [facility] RBC Auto (Bld) [#/Vol]Ordere d By: [facility] on 02-11-2022 RBC (Bld) [#/Vol] 4.36 10*6/uL 3.90-5.60 [facility] Serum or plasma alanine moon otransferase measurement without P-5'-P (enzymatic activiOrdered By: [facility] on 02-11-2022 ALT No additional P-5'-P [Catalytic activity/Vol] 19 U/L 10-60 [facility] Serum or plasma alkaline tye sphatase measurement (enzymatic activity/volume)Ordered By: [facility] on 02-11-2022 ALP [Catalytic activity/Vol] 68 U/L 32-92 [facility] Serum or plasma anion gap de terminationOrdered By: [facility] on 02-11-2022 Anion gap [Moles/Vol] 10.2 mmol/L 6.0-15.[address] [facility] Serum or plasma aspartate am inotransferase measurement (enzymatic activity/volume)Ordered By: [facility] on 02-11-2022 AST [Catalytic activity/Vol] 24 U/L 10-42 [facility] Serum or plasma calcium yajaira urement (mass/volume)Ordered By: OUTREACH [facility] on 02-11-2022 Calcium [Mass/Vol] 9.5 mg/dL 8.2-10.2 [facility] Serum or plasma chloride anupama surement (moles/volume)Ordered By: [facility] on 02-11-2022 Chloride [Moles/Vol] 105 mmol/L 95-114 [facility] Serum or plasma glucose yajaira urement (mass/volume)Ordered By: [facility] on 02-11-2022 Glucose [Mass/Vol] 87 mg/dL 70-100 [facility] Comment on above: ADA recommended refe rence rangeRandom Glucose Reference Range is dependent on time and content of last meal. Glucose of more than 200 mg/dL in a nonstressed, ambulatory subject supports the diagnosis of Diabetes Mellitus. Serum or plasma high density lipoprotein (HDL) cholesterol measurementOrdered By: [facility] on 02-11-2022 Cholesterol in HDL [Mass/Vol] 57 mg/dL 29-71 [facility] Comment on above: HDL CHOL ATP-III CLA SSIFICATION Cardiovascular RiskHDL > or equal to 60 mg/dL LOWHDL < 40 mg/dL HIGH Serum or plasma potassium me asurement (moles/volume)Ordered By: [facility] on 02-11-2022 Potassium [Moles/Vol] 4.1 mmol/L 3.5-5.1 [facility] Serum or plasma sodium measu rement (moles/volume)Ordered By: OUTREACH [facility] on 02-11-2022 Sodium [Moles/Vol] 138 mmol/L 136-146 [facility] Serum or plasma total biliru bin measurement (mass/volume)Ordered By: OUTREACH [facility] on 02-11-2022 Bilirubin [Mass/Vol] 1.0 mg/dL 0.3-1.2 [facility] Serum or plasma total carbon dioxide measurement (moles/volume)Ordered By: [facility] on 02-11-2022 CO2 [Moles/Vol] 26.9 mmol/L 22.0-30.0 [facility] Serum or plasma total choles terol/high density lipoprotein (HDL) cholesterol mass ratOrdered By: [facility] on 02-11-2022 Cholesterol.total/Stephanie sterol in HDL [Mass ratio] 3.4 {ratio} <5.0 [facility] Serum or plasma urea nitroge n measurement (mass/volume)Ordered By: [facility] on 02-11-2022 Urea nitrogen [Mass/Vol] 15 mg/dL 12-30 [facility] WBC Auto (Bld) [#/Vol]Ordere d By: [facility] on 02-11-2022 WBC (Bld) [#/Vol] 4.5 10*3/uL 4.1-10.5 [facility] Covid-19 PCR ([facility])on SARS-CoV-2 (COVID-19) RNA LINDA+probe Ql (Unsp spec) Not detected Normal NOT DETECTED [facility] Comment on above: Result Comment: This test is not yet approved or cleared by the [place] FDA. When there are no FDA-approved or cleared tests available, and other criteria are met, FDA can make tests available under an emergency access mechanism called an Emergency Use Authorization (EUA). The EUA for this test is supported by the Polygraph Examiner of Health and Human Service's (HHS's) declaration [...] SARS-CoV-2. Performed By: #### C VDTB #### [facility] [address] [address] [address] Leyda Chaudhry Vital Signs Date Time Vital Sign Value Performing Clinician Faci lity 12-02-2024 10: Body height 177.8 cm Luis Armando Draper DO Work Phone: [facility] 12-02-2024 10: Body mass index (BMI) [Ratio] 25.4 kg/m2 Luis Armando Draper DO Work Phone: [facility] 12-02-2024 10: Body weight 80.29 kg Luis Armando Draper DO Work Phone: [facility] Healthcare Encounters Encounter Date Encounter Type Care Provider Facility Start: 12-02-2024 End: 12-02-2024 Patient encounter procedure Luis Armando Draper DO Work Phone: [facility] Comment on above: Right wrist pain (Pr imary Dx); De Quervain's tenosynovitis; [facility] arthritis Start: 12-02-2024 End: 12-02-2024 ambulatory LUIS ARMANDO DRAPER Not Available Start: 12-02-2024 End: 12-02-2024 ambulatory LUIS ARMANDO DRAPER Not Available Start: 10-31-2024 End: 10-31-2024 ambulatory Yoko Lynn Facility:[facility] Start: 04-14-2024 End: 04-14-2024 [facility] Work Phone: Start: 04-14-2024 End: 04-14-2024 Departed Referred Sonia Martinez DPM Work Phone: [facility] Start: 12-19-2023 End: 03-31-2024 ambulatory SONIA MARTINEZ [facility] Start: 12-05-2023 End: 12-05-2023 ambulatory Juan TERRAZAS Facility[facility] Start: 11-29-2023 End: 11-29-2023 ambulatory JUAN TERRAZAS [facility] Start: 03-23-2023 End: 03-23-2023 ambulatory GEARCASE ASSEMBLER-C Yoli Martínez Work Phone: [facility] Work Phone: Start: 03-23-2023 End: 03-23-2023 Departed Referred GEARCASE ASSEMBLER-C Yolidae Martínez Work Phone: [facility] [place] Work Phone: Start: 12-09-2022 End: 12-09-2022 Emergency department patient visit Bandar Jonathan Facility:[facility] Start: 06-30-2022 ambulatory Facility:[id number] Start: 02-11-2022 End: 02-11-2022 ambulatory NON STAFF [facility] Work Phone: Start: 02-11-2022 End: 02-11-2022 Departed Referred [facility] Work Phone: [facility] Start: 04-12-2021 End: 04-12-2021 [facility] Procedures Date Procedure Procedure Detail Performing Clinician Start: 12-02-2024 MEDIUM JOINT ARTHROCENTESIS Luis Armando Draper DO Work Phone: Start: 12-02-2024 Radex wrist complete minimum 3 views Luis Armando Draper DO Work Phone: Plan of Treatment Date Care Activity Detail Author Start: 03-23-2023 Superficial Wound Culture Superficial Wound Culture [facility] Payers Date Payer Category Payer Self-pay [id number] 2022 Private Health Insurance [id number] [id number] 2021 Medicare MEDICARE [id number] 1959 Medicare [id number] 1959 Private Health Insurance CLI [id number] 1955 Unknown [id number] [id number] 1956 Unknown [id number] [id number]. 2.356 1956 Unknown [id number]. 2.182 1956 Unknown [id number]. 2.727 1956 Unknown [id number]. 2.727 1956 Unknown [id number] [id number]. 2.727 1956 Unknown [id number] [id number]. 2.727 1956 Unknown [id number] [id number]. 2.1259 1956 Unknown [id number] [id number]. 2.1259 Private Health Insurance [facility] [id number] Unknown Unknown [id number]. 2.531 Social History Date Type Detail Facility Tobacco smoking stat [facility] Unknown if ever smoked [facility] Work Phone: Start: 1955 Sex Assigned At Male F [facility] Work Phone: Start: 04-15-2024 Sex Male (finding) [facility] Start: 09-21-2022 [facility] tobacco [facility] Start: 09-21-2022 Tobacco use and exposure Smokeless tobacco non-user [facility] Start: 12-02-2024 Alcoholic beverage intake Ex-drinker (finding) [facility] Start: 12-02-2024 History of Social function [facility] Start: 12-02-[address] [facility] Start: 1955 Sex assigned at Not on file [facility] History of Present illness Narrative 12-02-2024 Bridget Sorensen MA - 12/02/2024 10:15 AM EDT Note Date & Type Note Facility 12-02-2024 History of Presen t illness Narrative Associated Order(s): M Inj/Asp Post-Procedure Diagnose(s): Right wrist pain M Inj/Asp on 12/02/2024 11:10 AM Indications: pain Details: 25 G needle, ultrasound-guided Medications: 1 mL betamethasone acetate-betamethasone sodium phosphate 6 (3-3) MG/ML documented in this encounter [facility] Healthcare Clinical Note 10-31-2024 Note Date & Type Note Facility 10-31-2024 Note Patient Education Ophthalmology Corneal Abrasion A corneal [...] may need to see an eye doctor (patch worker or plastic machine operator). Before the eye exam, eye drops may [...] ??? Taking pain medicines. This may include aeob-xer-tmqrlit medicines like ibuprofen or stronger pain medicine [...] your pee (urine) pale yellow. ? Take lgqc-wpl-cwchnwg or prescription medicines. ? Eat foods that are high in fiber. These include beans, whole grains, and fresh fruits and vegetables. ? Limit foods that are high in fat and sugar. These include fried or sweet foods. ??? Ask your doctor if you should avoid driving or using machines while you are taking your medicine. ??? Take oamc-syf-fulwiks and prescription medicines only as told by [...] doctor. You may not be able to weekend caregiver distances as well if your eyesight is [...] you have with your health care provider. Do (more content not included)... [facility] Evaluation note Note Date & Type Note Facility Evaluation note [facility] Evaluation note Note Date & Type Note Facility Evaluation note Diagnosis Right wrist pain- Primary Pain in joint, forearm De Quervain's tenosynovitis Radial styloid tenosynovitis [facility] arthritis documented in this encounter [facility] Summary Purpose Family History No Family History [...] and content) DATE CREATED AUTHOR 06/02/2021 [facility] DATE CREATED AUTHOR AUTHOR'S ORGANIZ ATION 08/19/2022 [facility] DATE CREATED AUTHOR AUTHOR'S ORGANIZ ATION 12/01/2023 [facility] DATE CREATED AUTHOR AUTHOR'S ORGANIZ ATION 12/07/2023 [facility] DATE CREATED AUTHOR AUTHOR'S ORGANIZ ATION 04/20/[address] [facility] DATE CREATED AUTHOR AUTHOR'S ORGANIZ ATION 11/02/2024 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 [employer] [facility]. provides no warranty or guarantee of the accuracy or completeness of information in this document.
[2025-01-13 06:16] LABS: Hematocrit 41.6 % (42.0-54.0); Hemoglobin 14.3 g/dL (14.0-18.0); Immature Granulocytes Abs Auto 0.01 10^3/uL (0.00-0.03); Immature Granulocytes Pct Auto 0.2 % (0.0-0.5); Lymphocytes Absolute Auto 1.6 10^3/uL (1.2-3.8); Mean Corpuscular HGB Conc 34.4 g/dL (29.9-35.2); Mean Corpuscular Hemoglobin 32.6 pg (25.9-34.0); Mean Corpuscular Volume 95.0 fL (80.0-94.0); Platelet Count 221 10^3/uL (150-450); Red Blood Count 4.38 10^6/uL (4.70-6.10); White Blood Count 6.0 10^3/uL (4.0-11.0)
--- NOTE | 2025-01-13 07:45 | PC.NURSE ---
Patient consented for peripheral nerve block by Dr. Ferguson. Site confirmed and signed by Dr. Ferguson. Patient placed on O2 at 2 lpm via nasal cannula and monitors per protocol and positioned. Time-out completed per protocol. Patient medicated per Dr. Ferguson. First site abductor/saphenous block started at 0723 and ended at 0729. Second site, popliteal, started at 0730 and ended at 0734. Patient tolerated block well. Positioned onto back with head slightly elevated for comfort. Patient remains on O2 and monitors until he is taken to OR. at bedside at this time. Call light in reach and patient viewed from desk area.
[2025-01-13] MEDS: CEFAZOLIN SODIUM/DEXTROSE,ISO 2 GM/50 ML PIGGYBACK IV (07:56)
--- NOTE | 2025-01-13 08:52 | P.ORON_ITS ---
Brief Operative Note Date of procedure: 01/13/25 Pre-op diagnosis general: Painful hardware & exostosis right foot Post-op diagnosis: same as pre-op Procedure: Procedure performed: Removal of deep orthopedic hardware and exostectomy, right foot Indications for procedure: Patient is a 70-year-old male who underwent first MPJ fusion last year and overall has been happy with his progress however he has noticed worsening pain over the hardware as well as pain over the medial condyle of the hallux distal phalanx. Despite shoe and activity modification as well as OTC pain medicine pain did not improve. Imaging confirmed fusion of his first MPJ and we discussed the potential risks and benefits of the above procedure. Patient has elected to undergo the above procedure. Intraoperative findings: Significant amount of scar tissue noted surrounding the hardware with minimal hypertrophic bone over the proximal aspect of the plate. Hardware was stable with no evidence of loosening. After removal of the plate there was no range of motion noted on the table or under fluoroscopic inspection. The interfrag screw was not easily visualized and was not prominent therefore was left in place. The medial condyle of the distal phalanx was prominent and removed appropriately. Procedure in detail: Patient was identified in preoperative holding by myself which time correct side and site were marked and consent was obtained. Regional anesthesia was performed by the anesthesia team. Patient was brought back to the operating theater placed on table in supine position. Preoperative antibiotics were started. General anesthesia was administered and the right lower extremity was prepped and draped in usual sterile fashion. Formal timeout was performed and the right foot and ankle were exsanguinated and tourniquet was inflated. Incision was placed over the dorsal aspect of the first metatarsal phalangeal joint and combination of sharp and blunt dissection gained access to the plate and screw construct spanning the dorsal first metatarsal and proximal phalanx. The 6 screws and plate were removed. A rongeur was used to remove a small amount of hypertrophic bone noted on the dorsal first metatarsal. The screw holes were curetted to healthy bleeding bone. There was osseous fusion noted at the first metatarsal phalangeal joint and stress exam on the table and under fluoroscopic guidance revealed stable fusion. The interfrag screw was not easil y visualized therefore was left in place. Then the incision was extended distally then combination of sharp and blunt dissection along the intra phalangeal joint and distal phalanx was taken medially exposing the medial condyle of the distal phalanx. The condyle was removed with a sagittal saw then was contoured using a rasp. Surgical site was irrigated with copious saline and inspection on the table as well as under fluoroscopic guidance revealed that all bony prominence was removed. The tourniquet was deflated noting a prompt hyperemic response. The incision was then closed in layers and a dry sterile dressing was applied. Patient tolerated the procedure and anesthesia well was transferred to the recovery room with vital signs stable and brisk capillary refill to left toes. Postoperative plan: Discharged home under 's care Weightbearing as tolerated in surgical shoe Ice and elevate the right foot Prescriptions were sent to his pharmacy using my office EMR Follow-up in my office in 3 weeks - call sooner if any problems or concerns arise Implants: none Anesthesia: regional and General-LMA Surgeon: Christian Martinez Equipment Mechanic Specialist: Kristine Shipman Estimated blood loss (mL): 10 Tourniquet time (min): 19 Pathology: none sent Condition: stable Disposition: PACU
[2025-01-13] MEDS: ASPIRIN/ACETAMINOPHEN/CAFFEINE 1 TAB TABLET PO (10:05)
== END 2025-01-13 11:09 | disposition home or self-care (01) ==
PROVIDERS: PCP Family Medicine; Visit Provider Podiatrist Foot & Ankle Surgery
PROC: (CPT 20680; principal; 2025-01-13 07:30)
DX: M89.8X7 Other specified disorders of bone, ankle and foot (principal); T84.84XA Pain due to internal orthopedic prosthetic devices, implants and grafts, initial encounter; M21.6X1 Other acquired deformities of right foot; M20.21 Hallux rigidus, right foot
CPT/HCPCS: 20680; 28005; 36415; 64445; 64450; 76000; 76942; 82948; 85025; J0690; J1100; J1885; J2250; J2371; J2405; J2704; J2795; J3010